=== PATIENT | male | born 1980 | race Caucasian/White ===

== ENCOUNTER 2018-05-19 04:22 | Inpatient (IN) ==
[2018-05-19 05:07] LABS: ALLEN TEST YES; BE -1.2 mmoll (-3.0-3.0); BLOOD TYPE ARTERIAL; METHB 1.3 % (0.0-1.5); O2(CT) 19.9 mL/dL (15.0-23.0); O2HB 96.8 % (95.0-99.0); PO2(98.6) 389 mmHg (60-100); SAMPLE BLOOD; SAO2 100.6 % (95.0-100.0); SRATE 16 BPM; THB 13.9 g/dL (11.5-17.4); TVOL 500 mL
[2018-05-19 05:08] LABS: MODALITY VENTILATOR
[2018-05-19 05:09] LABS: pH(98.6) 7.02 (7.35-7.45)
[2018-05-19 05:10] LABS: PCO2(98.6) 131 mmHg (35-45)
--- NOTE | 2018-05-19 05:43 | Diag Imaging Result Doc PS360 ---
EXAM: CHEST-PORTABLE HISTORY: unresponsive TECHNIQUE: Chest single view COMPARISON: 03/20/2018 FINDINGS: The lungs are hyperexpanded. Endotracheal tube in good position. Nasogastric tube overlies the esophagus and stomach. There are increased interstitial markings throughout the lungs. These are most pronounced in the apices. No cardiomegaly. No pleural effusions identified. IMPRESSION: Likely pneumonia and fibrosis. Electronically signed by Man Benavides 05/19/2018 5:40 AM
[2018-05-19 06:06] LABS: BASO# 0.11 X1000 (0.0-0.2); BASO% 0.8 % (0.0-0.8); EOS# 0.15 X1000 (0.0-0.7); HEMOGLOBIN 14.5 g/dL (14.0-18.0); IMM GRAN# 0.94 X1000 (0.0-0.04); IMM GRAN% 6.5 % (0.0-0.5); LYMPH# 2.89 X1000 (1.2-3.4); LYMPH% 19.9 % (20.5-51.1); MCHC 30.9 g/dL (33-37); MCV 100.6 FL (81-99); MONO# 0.52 X1000 (0.11-0.59); MONO% 3.6 % (1.7-9.3); MPV 11.5 FL (7.4-10.4); NEUT# 9.93 X1000 (1.4-6.5); NEUT% 68.2 % (42.2-75.2); PLT 245 X1000 (130-400); RBC 4.67 XMIL (4.7-6.1); RDW 13.9 % (11.5-14.5); WBC 14.54 X1000 (4.8-10.8)
--- NOTE | 2018-05-19 06:30 | PROVIDER DOCUMENTATION ---
HPI-Critical Care - General Chief Complaint: Full Arrest Stated Complaint: UNRESPONSIVE Time Seen by Provider: 05/19/18 05:09 Source: family Allergies/Adverse Reactions: Allergies Allergy/AdvReac Type Severity Reaction Status Date / Time No Known Allergies Allergy Verified 08/16/14 15:27 Home Medications: Home Medication List Medication Instructions Recorded Confirmed Last Taken Type Pantoprazole [Protonix] 40 mg PO QAM 05/13/13 05/19/18 12/21/14 07:00 History Carbamazepine [Tegretol] 400 mg PO TID #1 02/06/14 05/19/18 12/21/14 14:00 Rx Prednisone 5 mg PO DIRECTED #36 tablet 02/06/14 05/19/18 12/21/14 07:00 Rx Albuterol Sulfate [Proair Hfa] 8.5 gm IH Q4H PRN 08/16/14 05/19/18 12/20/14 17:00 History Divalproex Sodium [Depakote ER] 1,000 mg PO TID 08/16/14 05/19/18 12/21/14 14:00 History Sucralfate [Carafate Liquid] 1 gm PO Q6HR #1200 ml 01/06/15 05/19/18 Unknown Rx Levothyroxine Sodium [Synthroid] 88 mcg PO DAILY 02/17/18 05/19/18 Unknown Histo ry - History of Present Illness-Critical Care Location of Pain/Injury: reports: none Quality of Pain: reports: none Timing: reports: still present EMS Initial Findings:: unresponsive Pre-hospital Treatment: Not Used oxygen, Not Used BVM, Not Used intubated, Not Used CPR, Not Used defibrillated, Not Used IV fluids, Not Used epinephrine, Not Used atropine, Not Used lidocaine bolus, Not Used lidocaine drip, Not Used vasopressin, Not Used amiodarone, Not Used other Associated Symptoms: denies: denies symptoms, anxiety, arm pain, back/neck pain, chest pain, constipation, cough, diaphoresis, diarrhea, dizziness, EENT symptoms, fatigue, fever/chills, genitourinary problems, headaches, heartburn, joint pain, loss of appetite, malaise, muscle aches, sinus congestion/drainage, nausea, rash, seizure, shortness of breath, sensory/motor loss, pain with inspiration, swelling/mass in abdomen, syncope, vomiting, weakness, trouble walking, other Loss of Consciousness: still comatose Improves Condition (Modifying Factors): improves with: nothing Similar Symptoms Previously?: Yes Recently Seen Here or By Another Healthcare Provider: No - Cardiopulmonary Resuscitation Witnessed arrest?: Yes Noted by:: family Bystander CPR?: No Reason for Code Blue?: full arrest Initial Findings: unresponsive Treatment initiated prior to doctor arrival?: Not Used oxygen, Not Used BVM, Not Used intubated, Not Used CPR/thumper, Not Used defibrillated, Not Used IV fluids, Not Used epinephrine #mg, Not Used atropine #mg, Not Used lidocaine bolus #mg, Not Used lidocaine drip #mg/min, Not Used vasopressin, Not Used amiodarone, Not Used dopamine, Not Used sodium bicarb # amps, Not Used other Review of Systems - Adult - REVIEW OF SYSTEMS - ADULT ROS:: unobtainable per condition Constitutional: reports: no symptoms reported Eyes: reports: no symptoms reported Ears, Nose, Mouth & Throat: reports: no symptoms reported Cardiovascular: reports: no symptoms reported Respiratory: reports: no symptoms reported Gastrointestinal: reports: no symptoms reported Genitourinary: reports: no symptoms reported Musculoskeletal: reports: no symptoms reported Integumentary: reports: no symptoms reported Neurological: reports: no symptoms reported Psychiatric: reports: no symptoms reported Endocrine: reports: no symptoms reported Hematologic/Lymphatic: reports: no symptoms reported Allergic/Immunologic: reports: no symptoms reported Past History - Adult - PAST MEDICAL HISTORY-ADULT Review of Records: reports: Old Records Reviewed Major Childhood Illnesses: reports: denies history Cardiovascular: reports: denies history Respiratory: reports: pneumonia Gastrointestinal: reports: denies history Obstetrical/Gynecological: reports: denies history Genitourinary: reports: denies history Musculoskeletal: reports: denies history Neurological: reports: meningitis, 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), Seizures/Epilepsy Endocrine/Immune: reports: thyroid disorder Other Conditions: reports: denies history - PRIOR SURGERIES/PROCEDURES Surgical/Procedure History: reports: reviewed, not pertinent, other (lipoma removals) - IMMUNIZATION STATUS Childhood Immunizations: See Nurse Assessment Flu Vaccine: See Nurse Assessment - FAMILY HISTORY Family History: reviewed, not pertinent Physical Exam-General - PHYSICAL EXAM-ADULT Initial Vital Signs Reviewed: Yes - CONSTITUTIONAL General Appearance: other (unresponsive) - EYES Eyes: other (fixed and dilated) - HEAD, EARS, NOSE, MOUTH & THROAT HENMT: normocephalic/atraumatic - RESPIRATORY Respiratory: other (no spontaneous respiration) - CARDIOVASCULAR Cardiovascular: other (asystole) - GASTROINTESTINAL (ABDOMEN) Abdominal Exam: soft - LYMPHATIC Lymphatic: no adenopathy - MUSCULOSKELETAL Back Exam: normal inspection Extremity: other (no movement) - SKIN Integumentary: diaphoresis - NEUROLOGIC Neurologic: other (no response) Progress - PLAN OF CARE/RESULTS Progress/Plan/Lab Results: Vital Signs - 8 hr 05/19/18 04:46 05/19/18 04:48 05/19/18 04:50 Pulse Rate 106 H 113 H 115 H Blood Pressure 111/84 115/84 114/90 O2 Sat by Pulse Oximetry 98 100 100 05/19/18 04:52 05/19/18 04:54 05/19/18 04:56 Pulse Rate 113 H 113 H 113 H Blood Pressure 122/91 126/95 129/94 O2 Sat by Pulse Oximetry 100 100 100 05/19/18 04:58 05/19/18 05:00 05/19/18 05:02 Pulse Rate 115 H 114 H 114 H Blood Pressure 126/93 126/90 125/96 O2 Sat by Pulse Oximetry 100 100 100 05/19/18 05:06 05/19/18 05:08 05/19/18 05:10 Pulse Rate 116 H 116 H 117 H Blood Pressure 125/93 121/92 125/91 O2 Sat by Pulse Oximetry 100 99 99 05/19/18 05:12 05/19/18 05:14 05/19/18 05:16 Pulse Rate 117 H 117 H 119 H Blood Pressure 123/92 119/85 122/91 O2 Sat by Pulse Oximetry 99 99 99 05/19/18 05:18 05/19/18 05:20 05/19/18 05:22 Pulse Rate 120 H 120 H 120 H Blood Pressure 125/92 124/86 121/85 O2 Sat by Pulse Oximetry 99 99 99 05/19/18 05:24 05/19/18 05:26 05/19/18 05:28 Pulse Rate 121 H 121 H 121 H Blood Pressure 110/83 116/85 104/76 O2 Sat by Pulse Oximetry 98 98 99 05/19/18 05:30 05/19/18 05:32 05/19/18 05:34 Pulse Rate 120 H 120 H 119 H Blood Pressure 93/65 91/61 83/56 O2 Sat by Pulse Oximetry 100 100 100 05/19/18 05:36 05/19/18 05:38 05/19/18 05:40 Pulse Rate 118 H 117 H 117 H Blood Pressure 80/56 85/55 O2 Sat by Pulse Oximetry 99 100 05/19/18 05:41 05/19/18 05:42 05/19/18 05:44 Pulse Rate 117 H 118 H 119 H Blood Pressure 94/65 90/59 97/62 O2 Sat by Pulse Oximetry 100 100 05/19/18 05:46 05/19/18 05:48 05/19/18 05:50 Pulse Rate 119 H 122 H 122 H Blood Pressure 89/65 86/55 99/67 O2 Sat by Pulse Oximetry 100 100 100 05/19/18 05:51 05/19/18 05:52 05/19/18 05:54 Pulse Rate 121 H 121 H 120 H Blood Pressure 106/74 98/65 O2 Sat by Pulse Oximetry 99 98 98 05/19/18 05:56 05/19/18 05:58 05/19/18 06:00 Pulse Rate 119 H 119 H 119 H Blood Pressure 93/67 90/63 94/56 O2 Sat by Pulse Oximetry 100 100 100 05/19/18 06:02 05/19/18 06:04 05/19/18 06:06 Pulse Rate 119 H 120 H 120 H Blood Pressure 88/64 93/63 94/66 O2 Sat by Pulse Oximetry 100 100 100 05/19/18 06:08 Pulse Rate 120 H Blood Pressure 89/65 O2 Sat by Pulse Oximetry 100 Laboratory Results - last 24 hr 05/19/18 05/19/18 04:52 05:04 WBC 14.54 H RBC 4.67 L Hgb 14.5 Hct 47.0 MCV 100.6 H MCH 31.0 MCHC 30.9 L RDW Std Deviation 13.9 Plt Count 245 MPV 11.5 H Immature Gran % (Auto) 6.5 H Neut % (Auto) 68.2 Lymph % (Auto) 19.9 L [place] % (Auto) 3.6 Eos % (Auto) 1.0 Baso % (Auto) 0.8 Immature Gran # (Auto) 0.94 H Neut # (Auto) 9.93 H Lymph # (Auto) 2.89 [place] # (Auto) 0.52 Eos # (Auto) 0.15 Baso # (Auto) 0.11 Specimen Type ARTERIAL Sample Site R BRACHIAL pH 7.02 L* pCO2 131 H* pO2 389 H HCO3 24.0 Base Excess -1.2 Oxyhemoglobin 96.8 ABG O2 Sat (Calculated) 19.9 ABG O2 Saturation 100.6 H ABG Carboxyhemoglobin 2.50 ABG Methemoglobin 1.3 Michael Test YES A-a O2 Difference 160.0 Total Hemoglobin 13.9 Lactate 9.50 H* Blood Gas Modality VENTILATOR Vent Mode A/C Spontaneous Rate 16 FiO2 % 100.0 Tidal Volume 500 PEEP 5.0 Orders Category Date Time Status Central Line Placement per MD/ NOW Care 05/19/18 06:19 Active CHEST-PORTABLE [RAD] Stat Exams 05/19/18 05:04 Completed CHEST/ABD TUBE PLACEMENT [RAD] Stat Exams 05/19/18 06:20 Ordered ABG [RESP] Routine Lab 05/19/18 05:04 Completed CBC WITH ELECTRONIC DIFF [HEME] Stat Lab 05/19/18 04:52 Completed CK PROFILE [SP CHEM] Stat Lab 05/19/18 04:52 Received COMPREHENSIVE METABOLIC PANEL [CHEM] Stat Lab 05/19/18 04:52 Received TROPONIN T Stat Lab 05/19/18 04:52 Received Dextrose 5%-0.45% NaCl Inj [D5 1/2 Ns] 250 ml Med 05/19/18 05:00 Active Norepinephrine [Levophed] 8 mg IV As Directed mls/hr Transfer/Admit Order [TRANSFER] Routine Transfer 05/19/18 05:45 Ordered Result Diagrams: 05/19/18 04:52 Procedures - INTUBATION Airway Evaluation: Large/Loose Teeth Mallampati Class: 2 Tube Size (cm): 7.5 Pretreated with 100% Oxygen?: Yes Breath Sounds after Intubation: equal ETT Primary Tube Confirmation: Capnometry CO2 Change, Direct Visualization, Chest Rise and Fall, Tube placement verified on XRAY Intubation Complications: no complications Vent Settings: See Respiratory Therapy Notes - ADDITIONAL PROCEDURES Additional Procedure: Cannulate Artery/Vein (central line placement in right internal jugular vein without difficulty. Xray ordered for placement) Departure - Departure Date of Disposition Decision: 05/19/18 Time of Disposition Decision: 06:35 DIAGNOSIS: Cardiorespiratory arrest Disposition: ADMITTED INPATIENT 09 Certified Medical Emergency: Emergent Condition: Critical - Critical Care Note This patient required my direct & personal management of CC.: Yes Total Time (mins): 65 Critical Care Statement: This patient required my direct personal management to treat or rule out processes, the absence of which, could potentiallly result in sudden, clinically significant life or limb threatening deterioration. Attestation - Physician/ APPLE Attestation Patient care was provided by Advanced Practice Provider:: No The physician spent face to face time with patient:: Yes Advanced Practice Provider documentation review:: Supervising physician onsite and consulted in the evaluation and care of this patient. The physician did have a face to face encounter with the patient.
[2018-05-19 06:43] LABS: ESTIMATED GFR > 60
[2018-05-19 06:45] LABS: AGAP 17; ALB/GLOB RATIO 0.8; ALBUMIN 3.4 g/dL (3.5-5.0); ALKALINE PHOSPHATASE 166 U/L (32-122); BUN 24 mg/dL (8-22); CALCIUM 9.1 mg/dL (8.8-10.2); CHLORIDE 86 mmol/L (98-107); CK PROFILE 86 U/L (24-204); COSMO 285; CREATININE 0.8 mg/dL (0.7-1.2); GLUCOSE 197 mg/dL (70-104); GOT 35 U/L (10-34); GPT 14 U/L (10-44); SODIUM 138 mmol/L (136-145); TCO2 35 mmol/L (25-35); TOTAL BILIRUBIN 0.18 mg/dL (0.20-1.00); TOTAL PROTEIN 7.5 g/dL (6.3-8.3)
[2018-05-19] MEDS ORDERED: NS 500 ML ONE (06:56)
[2018-05-19] MEDS ORDERED: ZOFRAN IV PRN (07:01)
--- NOTE | 2018-05-19 07:16 | Diag Imaging Result Doc PS360 ---
EXAM: CHEST/ABD TUBE PLACEMENT HISTORY: cvl placement TECHNIQUE: Portable chest single view COMPARISON: 5:30 AM FINDINGS: A right jugular line has been placed since the prior exam. The tip overlies the T4-5 vertebra. No pneumothorax. No other interval change. Electronically signed by Man Benavides 05/19/2018 7:14 AM
[2018-05-19] MEDS ORDERED: VANCOMYCIN 1 GM/NS 1 GM/250 ML IVPB IV ONE (07:25)
[2018-05-19] MEDS ORDERED: VANCOMYCIN IV PER PHARMACY MISC SCH (07:30)
[2018-05-19] MEDS ORDERED: NS 1,000 ML ONE ×2 (08:01→23:10)
[2018-05-19] MEDS ORDERED: NS 500 ML IV PRN (08:23)
[2018-05-19] MEDS ORDERED: FENTANYL IV ONE (08:30)
[2018-05-19] MEDS ORDERED: TYLENOL PR PRN (08:33)
[2018-05-19 08:44] LABS: AGAP 8; AMYLASE 87 U/L (20-200); BUN 26 mg/dL (8-22); CALCIUM 8.3 mg/dL (8.8-10.2); CHLORIDE 93 mmol/L (98-107); CK PROFILE 165 U/L (24-204); COSMO 281; CREATININE 0.6 mg/dL (0.7-1.2); ESTIMATED GFR > 60; GLUCOSE 111 mg/dL (70-104); LIPASE 26 U/L (13-60); PHOSPHORUS 5.9 mg/dL (2.7-4.5); POTASSIUM 4.6 mmol/L (3.5-5.1); SODIUM 138 mmol/L (136-145); TCO2 37 mmol/L (25-35)
[2018-05-19] MEDS ORDERED: POTASSIUM CHLORIDE 40 MEQ in NS 250 ML IV PRN (08:45)
[2018-05-19] MEDS ORDERED: POTASSIUM CHLORIDE 60 MEQ in NS 500 ML IV PRN (08:45)
[2018-05-19] MEDS ORDERED: SODIUM PHOSPHATE 20 MMOL in NS 250 ML IV PRN (08:45)
[2018-05-19] MEDS ORDERED: SODIUM PHOSPHATE 10 MMOL in NS 250 ML IV PRN (08:45)
[2018-05-19] MEDS ORDERED: MAGNESIUM SULFATE 2 GM in STERILE WATER INJ. 50 ML IV PRN (08:45)
[2018-05-19] MEDS: ATIVAN IV SCH ×4 (09:00→20:06)
[2018-05-19] MEDS ORDERED: NITROGLYCERIN 50 MG/D5W 50 MG/250 ML IV.SOLN IV SCH (09:00)
[2018-05-19] MEDS: NS 1,000 ML IV SCH ×3 (09:02→23:45)
[2018-05-19] MEDS: ZOSYN 3.375 GM in NS 50 ML IV SCH ×3 (09:02→18:09)
[2018-05-19] MEDS: FENTANYL 1,000 MICROGM in NS 80 ML IV SCH (09:07)
[2018-05-19] MEDS: NIMBEX 80 MG in NS 160 ML IV SCH ×3 (09:08→21:14)
[2018-05-19] MEDS: LEVOPHED 8 MG in D5 1/2 NS 250 ML IV SCH (09:17)
[2018-05-19] MEDS: DUONEB (A & A) INH SCH ×5 (09:20→23:17)
[2018-05-19 09:33] LABS: INR 1.1; PROTIME 15.1 Seconds (11.0-16.0)
--- NOTE | 2018-05-19 09:34 | HISTORY AND PHYSICAL ---
CHIEF COMPLAINT: Cardiac arrest. HISTORY OF PRESENT ILLNESS: This is one of numerous [facility] admissions for this 38-year- old white male who apparently had a cardiac arrest in [place] and was brought by family per car to [facility]. CPR was done to include administration of 3 amps of epinephrine and 2 amps of atropine. He was intubated and placed on a ventilator. He responded with heart rate and blood pressure, but pupils remained fixed and dilated as they were on presentation. He was admitted to intensive care unit for cooling protocol and supportive care. A discussion was held with his who understands the seriousness of his condition. His last admission was 02/17/2018 through 03/20/2018. 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 He was evaluated and followed by Dr. Guo and Dr. Rader during that admission. His prognosis is poor. PAST MEDICAL HISTORY: Admitted 02/17/2018 through 03/20/2018, as above. He has no known cardiac problems. Apparently he cannot talk when in his usual state, but can sign. LABORATORY DATA: Hemoglobin 14.5, hematocrit 47, white blood count 14,500, sodium 138, potassium 4.6, BUN 26, creatinine 0.6, glucose 111, calcium 8.3, phosphorus 5.9, bilirubin 0.18, AST 35, ALT 14, alkaline phosphatase 166, CPK 165, troponin T 0.011, albumin 3.4, amylase 87, and lipase 26. CURRENT MEDICATIONS: Albuterol via inhaler q.4 hours, Tegretol 400 mg t.i.d., Depakote ER 1000 mg t.i.d., levothyroxine 88 mcg daily, Protonix 40 mg daily, prednisone 5 mg daily, and sucralfate 1 g q.6 hours. ALLERGIES: None known. REVIEW OF SYSTEMS: Significant for seizure disorder, chronic encephalopathy, COPD, pulmonary fibrosis, and inability to talk. FAMILY HISTORY: Can be obtained from most recent charts. SOCIAL HISTORY: Can be obtained from most recent charts. PHYSICAL EXAMINATION: VITAL SIGNS: Temperature 97 degrees, heart rate 117, respirations 22, blood pressure 108/80, O2 saturation on ventilator is 97%. HEENT: Pupils are fixed and dilated. RESPIRATORY: He is currently on the ventilator. Breath sounds are clear bilaterally. HEART: Regular in rate and rhythm with tachycardia. ABDOMEN: Soft with no masses. EXTREMITIES: No cyanosis, clubbing, or edema. RECTAL/GENITALIA: Deferred. IMPRESSION: 1. Cardiorespiratory arrest. 2. Probable brain injury. 3. Seizure disorder. 4. Chronic obstructive pulmonary disease . 5. Pulmonary fibrosis. 6. Hypothyroidism. 7. Poor prognosis. PLAN: Supportive care. Cardiology and pulmonary consultations. cc: Hugo Rodriguez MD
[2018-05-19 09:38] LABS: BASO# 0.01 X1000 (0.0-0.2); BASO% 0.1 % (0.0-0.8); EOS# 0.02 X1000 (0.0-0.7); EOS% 0.1 % (0.0-10.0); HEMATOCRIT 46.1 % (42.0-52.0); HEMOGLOBIN 14.5 g/dL (14.0-18.0); IMM GRAN# 0.11 X1000 (0.0-0.04); IMM GRAN% 0.7 % (0.0-0.5); LYMPH# 0.72 X1000 (1.2-3.4); LYMPH% 4.4 % (20.5-51.1); MCHC 31.5 g/dL (33-37); MCV 98.5 FL (81-99); MONO# 1.47 X1000 (0.11-0.59); MPV 10.9 FL (7.4-10.4); NEUT# 14.01 X1000 (1.4-6.5); NEUT% 85.7 % (42.2-75.2); PLT 243 X1000 (130-400); RBC 4.68 XMIL (4.7-6.1); RDW 13.9 % (11.5-14.5); WBC 16.34 X1000 (4.8-10.8)
[2018-05-19] MEDS: LACRI-LUBE OPH OINT BOTH EYES SCH ×3 (09:45→20:07)
[2018-05-19] MEDS: LOVENOX SUBQ SCH ×2 (10:00→20:07)
[2018-05-19] MEDS: PEPCID IV SCH ×2 (10:11→20:07)
[2018-05-19] MEDS: SODIUM CHLORIDE 0.9% INJ SCH ×2 (10:12→20:07)
[2018-05-19] MEDS: SOLU-MEDROL IV SCH ×2 (10:14→17:43)
[2018-05-19 11:47] LABS: ALLEN TEST YES; BE 9.3 mmoll (-3.0-3.0); BLOOD TYPE ARTERIAL; HCO3-(ACT) 32.2 mmoll (20.0-26.0); METHB 1.2 % (0.0-1.5); O2(CT) 20.5 mL/dL (15.0-23.0); O2HB 96.5 % (95.0-99.0); PO2(98.6) 254 mmHg (60-100); SAMPLE BLOOD; SAO2 100.2 % (95.0-100.0); SRATE 20 BPM; THB 14.7 g/dL (11.5-17.4); TVOL 500 mL; pH(98.6) 7.28 (7.35-7.45)
[2018-05-19 11:48] LABS: MODALITY VENTILATOR; PCO2(98.6) 85 mmHg (35-45)
--- NOTE | 2018-05-19 11:48 | CONSULTATION ---
DATE OF CONSULTATION: 05/19/2018 IMPRESSION: 1. Respiratory arrest progressing to cardiac arrest. 2. Chronic obstructive pulmonary disease and pulmonary fibrosis. 3. Seizure disorder. 4. Longstanding encephalopathy dating back to meningitis as an . RECOMMENDATIONS: 1. Continue supportive care. 2. Echocardiography. HISTORY: This 38-year-old, white male with past history of severe chronic lung disease, encephalopathy dating back to meningitis as an infant was admitted following cardiopulmonary arrest. He has been hospitalized multiple times for respiratory problems and has required ventilator support in the past. He has been on chronic home oxygen as well as BiPAP. Family indicates that he started having problems with hypoxemia. They were bringing him to [facility] via automobile and shortly before arrival he stopped breathing. In the emergency room he was given CPR and administered epinephrine, atropine. He was intubated and started on ventilator. His pulse was restored. He was subsequently admitted to intensive care unit. He is sedated and on a cooling protocol post arrest. There is no prior history of cardiac problems. PAST MEDICAL HISTORY: 1. Severe chronic pulmonary disease with COPD and pulmonary fibrosis. 2. Chronic encephalopathy dating back to meningitis as an . 3. Seizure disorder. 4. Hypothyroidism. 5. Gastroesophageal reflux disease. ALLERGIES: No known drug allergies. MEDICATIONS PRIOR TO ADMISSION: As listed. SOCIAL HISTORY: He lives at home with a very attentive mother. He has never smoked. FAMILY HISTORY: Noncontributory. REVIEW OF SYSTEMS: Not obtainable given patient sedated on ventilator. PHYSICAL EXAMINATION: General: Reveals a chronically ill-appearing adult male, on ventilator and sedated. Vital signs: Blood pressure 120/80, heart rate 82 with ECG monitor showing sinus rhythm. HEENT: Mucous membranes are moist. Neck: Supple. There are no carotid bruits. Chest: Reveals bilateral rhonchi. Cardiac: Reveals a regular rate and rhythm without appreciable murmur or gallop. Abdomen: Soft with good bowel sounds. Extremities: Without edema. There is diffuse muscle wasting. LABORATORY DATA: White blood cell count 16.34, hematocrit 46.1, hemoglobin 14.5 platelet count 243,000. Arterial blood gas: PH 7.02, pCO2 131, PO2 389. Sodium 138, potassium 4.6, chloride 93, carbon dioxide 37, BUN 26, creatinine 0.6, glucose 111. Troponin T 0.319. Initial troponin T 0.011. CPK 165. Initial CPK 86. Twelve lead EKG not yet scanned in medical record. cc: MD Sid Orellana Jr, MD
[2018-05-19 12:10] LABS: BANDS 4 % (0-1); LYMPHS 4 % (21-51); MONO 2 % (1-9); SEGS 88 % (42-75)
[2018-05-19] MEDS ORDERED: VANCOMYCIN 2,200 MG in NS 500 ML IV ONE (14:00)
[2018-05-19 15:16] LABS: AGAP 9; BUN 23 mg/dL (8-22); CALCIUM 8.1 mg/dL (8.8-10.2); CHLORIDE 92 mmol/L (98-107); COSMO 280; CREATININE 0.5 mg/dL (0.7-1.2); ESTIMATED GFR > 60; GLUCOSE 116 mg/dL (70-104); POTASSIUM 3.5 mmol/L (3.5-5.1); SODIUM 138 mmol/L (136-145); TCO2 37 mmol/L (25-35)
[2018-05-19 17:13] LABS: CK INDEX 10.8 (0.0-2.5); CK-MB 26.99 ng/mL (0.0-5.0)
[2018-05-19 17:29] LABS: ALLEN TEST NO; BE 8.5 mmoll (-3.0-3.0); BLOOD TYPE ARTERIAL; HCO3-(ACT) 31.5 mmoll (20.0-26.0); METHB 1.1 % (0.0-1.5); O2(CT) 18.8 mL/dL (15.0-23.0); O2HB 94.2 % (95.0-99.0); PO2(98.6) 74 mmHg (60-100); SAMPLE BLOOD; SAO2 97.4 % (95.0-100.0); THB 14.2 g/dL (11.5-17.4); pH(98.6) 7.33 (7.35-7.45)
[2018-05-19] MEDS ORDERED: POTASSIUM CHLORIDE 40 MEQ/SWI 40 MEQ/100 ML IVPB IV ONE (17:30)
[2018-05-19 17:32] LABS: MODALITY VENTILATOR
[2018-05-19 17:33] LABS: PCO2(98.6) 71 mmHg (35-45)
--- NOTE | 2018-05-19 20:40 | CONSULTATION ---
DATE OF CONSULTATION: 05/19/2018 REQUESTING PROVIDER: Dr. Sarabjit Jiang. REASON FOR CONSULTATION: Respiratory failure. HISTORY OF PRESENT ILLNESS: This is a 38-year-old male with a complicated medical history including chronic encephalopathy, drug induced pneumonitis, recurrent respiratory arrest requiring ventilation, questionable COPD and pulmonary fibrosis, recurrent pneumonia and UTI, chronic seizure disorder, hypothyroidism and anemia. He was brought to the ER early this morning by family with respiratory failure and unresponsiveness. In the ER he was found in a full cardiopulmonary arrest. Per the H&P, PCR was done with administration of 3 amps of epinephrine and 2 amps of atropine. The patient was intubated and mechanically ventilated. His pulse was restored. ABG revealed pH 7.02, pCO2 131, PO2 389 and lactate 9.50. Chest x-ray revealed likely pneumonia and fibrosis. He has been admitted to the ICU for further evaluation and management. At the time of my examination patient is lying in the ICU bed on a cooling blanket. He is intubated and sedated with fentanyl. He is also on norepinephrine drip. the patient's family is at the bedside. The patient's mother reports that patient has been on BiPAP at home but she does not think that BiPAP works as good as she expected. She reports patient has low oxygen saturation at 80s for a few days and this morning the oxygen saturation dropped to 60s. She states her has been admitted in [facility] recently and she has to take care of him which has somewhat made patient stressed as she is the patient's major caregiver . She reports patient has very poor cough effort recently. She reports patient has no fever. PAST MEDICAL AND SURGICAL HISTORY: 1. 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 2. Drug induced pneumonitis in mid 2013. 3. Recurrent respiratory arrest requiring ventilation, on BiPAP at home since December 2014. 5. Questionable COPD and pulmonary fibrosis . 6. Recurrent pneumonia and UTI. 7. Chronic seizure disorder followed by Dr. Rader. 8. Hypothyroidism . 9. Anemia. 10. Fatty cyst removal for 5 times from right arm and back. SOCIAL HISTORY: The patient lives at home with his family. He can communicate with his mother mainly by sign language. His mother is his major caregiver. He is poorly developed and stays in bed most of time. He has no history of tobacco, alcohol or illicit drug use. FAMILY HISTORY: Reviewed and noncontributory. ALLERGIES: No known drug allergies. REVIEW OF SYSTEMS: Unable to be obtained. PHYSICAL EXAMINATION: Vital Signs: Temperature 97.8 degrees, blood pressure 108/80, pulse 115, respiratory rate 26, oxygen saturation 97% on AC mechanical ventilator with spontaneous rate 16, oxygen FiO2 100%, tidal volume 500 and PEEP 5. General: Chronic ill appealing poor developed intubated and sedated with fentanyl drip. HEENT: Atraumatic. Trachea midline. Mucosa pink and dry. Respiratory: Mechanically ventilated. Auscultation reveals diminished breathing sounds bibasilarly, very, very coarse breathing sounds throughout the lung carmen and rhonchi bilaterally. Cardiovascular: Regular rate and rhythm. Gastrointestinal: Bowel sounds present in all 4 quadrants. Soft and flat. Extremities: Bilateral lower extremity pitting edema 2+, bilateral lower extremity and bilateral upper extremity pale and cold to touch. Muscle wasting noted. Neurologic: Sedated and unresponsive. LAB DATA: White blood cells 16.34, hemoglobin 14.5, hematocrit 46.1, platelet 243,000, sodium 138, potassium 4.6, chloride 93, carbon dioxide 37, BUN 26, creatinine 0.6, glucose 111, calcium 8.3, phosphorus 5.9, troponin 0.319. ABG, pH 7.28, pCO2 85, PO2 254, HC03 32.2, base excess 9.3 and oxyhemoglobin 96.5. ASSESSMENT AND PLAN: This is a 38-year-old male with a complicated medical history including chronic encephalopathy, drug induced pneumonitis, recurrent respiratory arrest requiring ventilation, questionable chronic obstructive pulmonary disease and pulmonary fibrosis, recurrent pneumonia and urinary tract infection, chronic seizure disorder, hypothyroidism and anemia. He has been admitted to the intensive care unit with a cardiopulmonary arrest, probable brain injury, seizure disorder, chronic obstructive pulmonary disease and pulmonary fibrosis. 1. Acute on chronic hypoxemic hypercapnic respiratory failure likely secondary to pneumonia, chronic obstructive pulmonary disease and pulmonary fibrosis. Continue AC mechanical ventilation. Continue antibiotic, bronchodilators, continue fluid resuscitation. Follow up with ABG, CBC, chest x-ray, blood cultures, sputum culture and urine culture. 2. Status post cardiopulmonary arrest with elevation troponin. Dr. Mcdonough is on board. 3. Seizure disorder. Dr. Rader is on board. 4. Continue GI and DVT prophylaxis. 5. Poor prognosis. Further recommendations pending hospital course. Thank you for the courtesy of this consult. Dictated by CARL Foley for Bryant Cruz MD cc: CARL Foley MD Roger H. Moss Jr, MD [facility] DIVISIONPaul
[2018-05-19 20:54] LABS: BASO# 0.01 X1000 (0.0-0.2); BASO% 0.1 % (0.0-0.8); HEMATOCRIT 41.3 % (42.0-52.0); HEMOGLOBIN 13.5 g/dL (14.0-18.0); IMM GRAN# 0.03 X1000 (0.0-0.04); IMM GRAN% 0.2 % (0.0-0.5); LYMPH# 0.27 X1000 (1.2-3.4); LYMPH% 1.7 % (20.5-51.1); MCH 31.3 PG (27-31); MCHC 32.7 g/dL (33-37); MCV 95.6 FL (81-99); MONO% 6.4 % (1.7-9.3); MPV 10.7 FL (7.4-10.4); NEUT# 14.34 X1000 (1.4-6.5); NEUT% 91.6 % (42.2-75.2); PLT 137 X1000 (130-400); RBC 4.32 XMIL (4.7-6.1); RDW 13.5 % (11.5-14.5); WBC 15.65 X1000 (4.8-10.8)
[2018-05-19 20:59] LABS: INR 1.09
[2018-05-19 21:11] LABS: AGAP 9; AMYLASE 54 U/L (20-200); BUN 21 mg/dL (8-22); CALCIUM 7.8 mg/dL (8.8-10.2); CHLORIDE 96 mmol/L (98-107); COSMO 283; CREATININE 0.5 mg/dL (0.7-1.2); ESTIMATED GFR > 60; GLUCOSE 135 mg/dL (70-104); LIPASE 11 U/L (13-60); MAGNESIUM 1.4 mg/dL (1.5-2.7); PHOSPHORUS 1.8 mg/dL (2.7-4.5); POTASSIUM 3.7 mmol/L (3.5-5.1); SODIUM 139 mmol/L (136-145); TCO2 34 mmol/L (25-35)
[2018-05-19 21:43] LABS: BANDS 2 % (0-1); HYPOCHROM 2+; LYMPHS 4 % (21-51); MONO 2 % (1-9); SEGS 92 % (42-75)
[2018-05-19 21:44] LABS: MICROCYTOSIS 1+
[2018-05-20] LABS: ALLEN TEST YES; BE 9.6 mmoll (-3.0-3.0); BLOOD TYPE ARTERIAL; HCO3-(ACT) 32.4 mmoll (20.0-26.0); METHB 1.5 % (0.0-1.5); O2(CT) 19.4 mL/dL (15.0-23.0); O2HB 96.7 % (95.0-99.0); PO2(98.6) 134 mmHg (60-100); SAMPLE BLOOD; SAO2 101.3 % (95.0-100.0); SRATE 20 BPM; THB 14.1 g/dL (11.5-17.4); TVOL 500 mL; pH(98.6) 7.36 (7.35-7.45)
[2018-05-20 00:01] LABS: PCO2(98.6) 67 mmHg (35-45)
[2018-05-20 00:02] LABS: MODALITY VENTILATOR
[2018-05-20] MEDS: ZOSYN 3.375 GM in NS 50 ML IV SCH ×5 (00:05→18:12)
[2018-05-20] MEDS: VANCOMYCIN 1,800 MG in NS 500 ML IV SCH ×2 (02:13→14:22)
[2018-05-20] MEDS: FENTANYL 1,000 MICROGM in NS 80 ML IV SCH ×2 (02:13→04:43)
[2018-05-20] MEDS: LACRI-LUBE OPH OINT BOTH EYES SCH ×3 (02:13→16:24)
[2018-05-20] MEDS: SOLU-MEDROL IV SCH ×3 (02:13→17:59)
--- NOTE | 2018-05-20 02:24 | ECHO REPORT ---
ORDER DATE: 05/19/2018 SUMMARY: 1. Technically difficult study due to limited acoustic window quality. 2. The aortic valve is trileaflet and opens normally on 2-dimensional images. Peak gradient across aortic valve is less than 5 mmHg. Mitral, tricuspid and pulmonic valves are without structural abnormality. There is trace tricuspid regurgitation and trace pulmonic insufficiency. The aortic root is normal in size. 3. Normal left ventricular dimension is demonstrated. The left ventricle appears hyperdynamic with an estimated left ejection fraction of at least 70%. There is suggestion of septal flattening to a mild degree during diastole and systole suggesting possible right ventricular pressure overload. No other wall motion abnormalities are evident. The left atrium is normal in size. The right atrium appears borderline enlarged. The right ventricle appears mildly enlarged. 4. No pericardial effusion. 5. Inferior vena cava not well demonstrated. cc: MD Hugo Orellana MD Roger H. Moss Jr, MD
[2018-05-20] MEDS: DUONEB (A & A) INH SCH ×6 (03:32→23:22)
--- NOTE | 2018-05-20 04:00 | HISTORY AND PHYSICAL ---
PRIMARY CARE PHYSICIAN: Dr. Guerrero. CHIEF COMPLAINT: Cardiac arrest and respiratory failure. HISTORY OF PRESENT ILLNESS: A 38-year-old male with a history of COPD, ,hypothyroidism, meningitis as an infant, with subsequent deafness, and seizure disorder, who was brought to the emergency department because patient went into cardiac arrest. He was transferred to the ED. ACLS protocol was followed and a pulse was regained. He was intubated and is currently on a ventilator. He will need admission to ICU for further management. PAST MEDICAL HISTORY: COPD, deafness, seizure disorder, meningeal encephalitis, hypothyroidism. PAST SURGICAL HISTORY: None. ALLERGIES: No known drug allergies. CURRENT MEDICATIONS: As listed in the medication reconciliation sheet, which needs to be updated. Currently, it seems that he is on 1. Tegretol 400 mg p.o. t.i.d. 2. Depakote 1000 mg p.o. t.i.d. 3. Levothyroxine 88 mcg p.o. daily. 4. Pantoprazole 40 mg p.o. daily. 5. Prednisone 5 mg p.o. daily. SOCIAL HISTORY: No history of smoking, alcohol or illicit drug use. FAMILY HISTORY: No history of coronary disease. REVIEW OF SYSTEM: Unable to obtain because patient is obtunded. PHYSICAL EXAMINATION: GENERAL: Currently patient is obtunded and on a ventilator. VITAL SIGNS: Were not reported yet. CHEST: There is rhonchi. CARDIOVASCULAR: Regular rate and rhythm. ABDOMEN: Soft. Positive bowel sounds. EXTREMITIES: No edema. NEUROLOGIC: He is obtunded. GENITOURINARY: No bladder distention. SKIN: Warm. LABORATORIES AND STUDIES: Still pending. What we have is a blood gases with pH of 7.02, pCO2 of 131, pO2 of 389. ASSESSMENT: A 38-year-old male with a history of meningeal encephalitis as the with some quality of deafness and seizure disorder, chronic obstructive pulmonary disease, and hypothyroidism, who had presented to the emergency department full cardiac arrest with no pulse. ACLS protocol was followed and a pulse was obtained. He is currently on a ventilator, requires ICU admission for further management. 1. Acute respiratory failure. 2. Cardiac arrest. 3. Chronic obstructive pulmonary disease. 4. Seizure disorder. 5. Probable sepsis/pneumonia PLAN: 1. The patient will be admitted to ICU. 2. Continue with ventilator support. 3. We will monitor patient on telemetry. 4. Continue with DuoNebs p.r.n. 5. Put patient on seizure precautions. 6. Will check blood cultures, start IV ABX 7. The patient's condition is guarded. 8. We will continue to follow and reassess, and make further recommendations based on patient's clinical course. cc: MD Sid Gillis Jr, MD MTDD
[2018-05-20] MEDS: ATIVAN IV SCH ×5 (04:04→16:33)
[2018-05-20 05:10] LABS: ALLEN TEST YES; BE 7.5 mmoll (-3.0-3.0); BLOOD TYPE ARTERIAL; HCO3-(ACT) 30.7 mmoll (20.0-26.0); METHB 1.5 % (0.0-1.5); O2(CT) 17.9 mL/dL (15.0-23.0); PO2(98.6) 209 mmHg (60-100); SAMPLE BLOOD; SAO2 99.3 % (95.0-100.0); SRATE 20 BPM; THB 12.9 g/dL (11.5-17.4); TVOL 500 mL; pH(98.6) 7.32 (7.35-7.45)
[2018-05-20 05:11] LABS: MODALITY VENTILATOR; PCO2(98.6) 70 mmHg (35-45)
[2018-05-20] MEDS ORDERED: LOVENOX SUBQ SCH (06:00)
[2018-05-20 06:19] LABS: BASO# 0.01 X1000 (0.0-0.2); BASO% 0.1 % (0.0-0.8); EOS# 0.06 X1000 (0.0-0.7); EOS% 0.6 % (0.0-10.0); HEMOGLOBIN 12.5 g/dL (14.0-18.0); LYMPH# 0.48 X1000 (1.2-3.4); LYMPH% 4.7 % (20.5-51.1); MCH 31.3 PG (27-31); MCHC 32.9 g/dL (33-37); MONO# 0.52 X1000 (0.11-0.59); MONO% 5.1 % (1.7-9.3); MPV 10.8 FL (7.4-10.4); NEUT# 9.06 X1000 (1.4-6.5); NEUT% 89.5 % (42.2-75.2); PLT 112 X1000 (130-400); RDW 13.4 % (11.5-14.5); WBC 10.13 X1000 (4.8-10.8)
[2018-05-20 07:07] LABS: AGAP 12; BUN 21 mg/dL (8-22); CALCIUM 7.9 mg/dL (8.8-10.2); CHLORIDE 98 mmol/L (98-107); COSMO 286; CREATININE 0.4 mg/dL (0.7-1.2); ESTIMATED GFR > 60; GLUCOSE 136 mg/dL (70-104); POTASSIUM 3.4 mmol/L (3.5-5.1); SODIUM 141 mmol/L (136-145); TCO2 31 mmol/L (25-35)
[2018-05-20 07:33] LABS: BANDS 4 % (0-1); LYMPHS 6 % (21-51); SEGS 90 % (42-75)
--- NOTE | 2018-05-20 07:49 | Diag Imaging Result Doc PS360 ---
CHEST-1 VIEW - 05/20/2018 INDICATION: SOB COMPARISON: 05/19/2018 FINDINGS: Support lines and tubes are stable. Stable advanced COPD. Stable coarse interstitial infiltrates diffusely and bilaterally. Heart size remains top normal. There are probably trace pleural effusions. IMPRESSION: No change from prior. Electronically signed by Shashank Hall 05/20/2018 7:46 AM
[2018-05-20] MEDS: PEPCID IV SCH ×2 (08:03→20:30)
[2018-05-20] MEDS: SODIUM CHLORIDE 0.9% INJ SCH ×2 (08:03→20:30)
[2018-05-20] MEDS: LOVENOX SUBQ SCH ×2 (08:07→21:45)
--- NOTE | 2018-05-20 08:11 | EKG Report ---
Test Performed on : 05/19/2018 07:23:30 AM Test Reason : POST CODE Blood Pressure : / mmHG Vent. Rate : 104 BPM Atrial Rate : 104 BPM P-R Int : 118 ms QRS Dur : 102 ms QT Int : 364 ms P-R-T Axes : 084 090 077 degrees QTc Int : 478 ms Sinus tachycardia. Anterolateral infarct , age undetermined Abnormal ECG When compared with ECG of 16-AUG-2014 14:41, No significant change was found Unconfirmed Result
[2018-05-20 08:21] LABS: INR 1.31; PROTIME 17.4 Seconds (11.0-16.0)
[2018-05-20 08:24] LABS: BASO# 0.01 X1000 (0.0-0.2); BASO% 0.1 % (0.0-0.8); HEMATOCRIT 38.6 % (42.0-52.0); HEMOGLOBIN 12.5 g/dL (14.0-18.0); LYMPH# 0.32 X1000 (1.2-3.4); MCH 31.2 PG (27-31); MCHC 32.4 g/dL (33-37); MCV 96.3 FL (81-99); MONO# 0.52 X1000 (0.11-0.59); MONO% 4.8 % (1.7-9.3); MPV 11.3 FL (7.4-10.4); NEUT# 9.93 X1000 (1.4-6.5); NEUT% 92.1 % (42.2-75.2); PLT 127 X1000 (130-400); RBC 4.01 XMIL (4.7-6.1); RDW 13.9 % (11.5-14.5); WBC 10.78 X1000 (4.8-10.8)
[2018-05-20 08:30] LABS: AGAP 8; AMYLASE 35 U/L (20-200); BUN 20 mg/dL (8-22); CALCIUM 8.2 mg/dL (8.8-10.2); CHLORIDE 99 mmol/L (98-107); COSMO 287; CREATININE 0.4 mg/dL (0.7-1.2); ESTIMATED GFR > 60; GLUCOSE 119 mg/dL (70-104); MAGNESIUM 2.2 mg/dL (1.5-2.7); POTASSIUM 3.6 mmol/L (3.5-5.1); SODIUM 142 mmol/L (136-145); TCO2 35 mmol/L (25-35)
[2018-05-20 09:11] LABS: BANDS 28 % (0-1); LYMPHS 2 % (21-51); MONO 4 % (1-9); SEGS 66 % (42-75)
--- NOTE | 2018-05-20 09:43 | PROGRESS NOTE ---
DATE: 05/20/2018 SUBJECTIVE: The patient is on ventilator and is unconscious at this time. OBJECTIVE: Vital Signs: Blood pressure 130/90, respirations 20, pulse 85. He is on a cooling blanket. Temperature is 92.3 degrees Fahrenheit on the last check. HEENT: He is normocephalic. Lungs: Sound fairly clear to auscultation. Heart: Regular rate and rhythm without murmurs, gallops, or friction rubs. Echocardiogram was essentially normal. Abdomen: Soft. Active bowel sounds. No organomegaly or tenderness. Neurological: The patient is comatose on a ventilator. Blood gas shows a pH of 7.32, pCO2 of 70, PO2 of 209 with 40% FiO2. Potassium slightly low at 3.4. Initial troponin was elevated, so was CPK, CK index and MB. The patient was coded. ASSESSMENT: 1. Respiratory arrest. 2. Cardiac arrest. 3. Seizure disorder. 4. Chronic lung disease. 5. Encephalopathy. 6. Low potassium. PLAN: Continue to support. Appreciate the help from all consultants. cc: Sid Guerrero Jr, MD
[2018-05-20 11:04] LABS: ALLEN TEST YES; BE 8.6 mmoll (-3.0-3.0); BLOOD TYPE ARTERIAL; HCO3-(ACT) 31.6 mmoll (20.0-26.0); METHB 0.6 % (0.0-1.5); O2(CT) 16.9 mL/dL (15.0-23.0); O2HB 93.9 % (95.0-99.0); PO2(98.6) 69 mmHg (60-100); SAMPLE BLOOD; SAO2 96.8 % (95.0-100.0); SRATE 20 BPM; THB 12.8 g/dL (11.5-17.4); TVOL 500 mL
[2018-05-20 11:07] LABS: PCO2(98.6) 77 mmHg (35-45)
[2018-05-20 11:08] LABS: MODALITY VENTILATOR
[2018-05-20] MEDS: NS IV SCH ×3 (13:12→23:00)
[2018-05-20] MEDS: DEPACON IV SCH ×3 (13:12→23:00)
--- NOTE | 2018-05-20 13:20 | GENERAL SURGERY CONSULTATION ---
DATE: 05/20/2018 REQUESTING PHYSICIAN: Dr. Guerrero. REASON FOR CONSULTATION: Consult is concerning central line in the carotid artery. HISTORY OF PRESENT ILLNESS: A 38-year-old male with history of COPD, hypothyroidism, meningitis, seizure disorder, who is brought to the emergency department after having a cardiac arrest. He apparently had some regain of pulse and was started on the hypothermia protocol. He had a central line placed in the emergency department and it was noted this morning that it looked abnormal waveform and subsequently found that it was in the carotid artery. I was asked to weigh an opinion. PAST MEDICAL HISTORY: COPD, deafness, seizure disorder, meningitis, encephalitis, hypothyroidism. PAST SURGICAL HISTORY: None. ALLERGIES: None. CURRENT MEDICATIONS: MAR reviewed. SOCIAL HISTORY: No alcohol, tobacco, or illicit drugs. FAMILY HISTORY: No family history of coronary artery disease. REVIEW OF SYSTEMS: Unable to obtain secondary to patient's mental status. PHYSICAL EXAMINATION: Vital Signs: Patient is currently afebrile. His vital signs are stable. General: No acute distress, but paralyzed and sedated. male, looks stated age. HEENT: Normocephalic, atraumatic. Pupils equal, round, reactive to light. Mucous membranes moist, oropharynx benign. Neck: Supple. Central line in place connected to a CVP monitor and is pulsatile. Trachea midline. Cardiovascular: Regular rate and rhythm. Lungs: Grossly clear. Abdomen: Soft, nontender, nondistended. Extremities: No edema. Neurologic: Sedated and paralyzed. Skin: No signs of jaundice. Vascular: All extremities perfused. LABORATORY: Reviewed. IMAGING: Reviewed. Chest x-ray from this morning does show that looks like the central line crosses over to the left side from the right side. ASSESSMENT AND PLAN: A 38-year-old male with central line in what appears to be a carotid artery. Central line in carotid artery. At this time, we removed the central line, held pressure for 15 minutes. I observed at the bedside. I did not see any pulsatility or any kind of developing of hematoma. We will keep a close eye on it. We may need to consider ultrasound of the vasculature in the next day or two. cc: MD Sid Mustafa Jr, MD
[2018-05-20] MEDS ORDERED: NS 250 ML ONE (13:36)
[2018-05-20 14:00] LABS: CK INDEX 6.3 (0.0-2.5); CK-MB 22.19 ng/mL (0.0-5.0)
--- NOTE | 2018-05-20 14:04 | PROGRESS NOTE ---
DATE: 05/20/2018 SUBJECTIVE: The patient continues sedated and on cooling protocol. Remains on ventilator. OBJECTIVE: Vital Signs: Blood pressure 101/65, heart rate 73, oxygen saturation 100%. Neck: There is no significant jugular distention. Chest: Auscultation of the chest reveals scattered rhonchi. Cardiac: Reveals a regular rate and rhythm without appreciable murmur or gallop. Extremities: Without edema. LABORATORY DATA: Includes a white blood cell count of 10.13, hematocrit 30.8, hemoglobin 12.5, platelet count 112,000. Sodium 141, potassium 3.4, chloride 98, carbon dioxide 31, BUN 21, creatinine 0.4. Echocardiography demonstrates hyperdynamic left ventricle with ejection fraction at least 70%. Pulmonary artery pressure could not be estimated. There is some suggestion of possible pulmonary hypertension given abnormal septal wall motion. Right ventricle mildly enlarged. IMPRESSION: 1. Status post respiratory arrest progressing to cardiac arrest. 2. Severe chronic lung disease. 3. Seizure disorder. 4. Longstanding encephalopathy dating back to meningitis as an . RECOMMENDATIONS: 1. Continue supportive care. 2. Clinical presentation more consistent with primary respiratory deterioration leading to cardiac arrest. No further cardiovascular suggestions. We will see further on an as needed basis. cc: MD Sid Orellana Jr, MD
[2018-05-20] MEDS: NIMBEX 80 MG in NS 160 ML IV SCH (14:21)
--- NOTE | 2018-05-20 15:12 | CONSULTATION ---
DATE OF CONSULTATION: 05/20/2018 REASON FOR CONSULT: Seizure disorder. HISTORY OF PRESENT ILLNESS: This is a 38-year-old male who was admitted with a respiratory rest that progressed to cardiac arrest. This is a patient that is well known to Dr. Rader who follows him. 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 He has had chronic recurring pulmonary issues and has been admitted and on the ventilator on more than one occasion here. He was last here at the start of this year. This time he presented again with respiratory difficulties and then an apparent cardiac arrest. CPR was performed. He also received epinephrine and atropine. He was intubated and placed on the cooling protocol. The nurse states that he has just begun the rewarming process at about 11 a.m. today, shortly before my time at the bedside. The patient's antiepileptics are as follows. 1. Brand-name Depakote ER 500 mg, 2 p.o. q.a.m., 1-2 p.o. midday, 2 p.o. at bedtime. 2. Brand name Tegretol 200 mg, 2 p.o. t.i.d. Current medications as inpatient include lorazepam 2 mg IV q.4 hours scheduled. He has also been getting fentanyl and paralytic for the cooling protocol. Additionally, he was on pressor. There have been no reports of witnessed seizure activity. 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 FAMILY HISTORY: Noncontributory. SOCIAL HISTORY: No smoking, alcohol, or illicits. His mother is his primary pharmaceutical salesperson. I believe his father is being hospitalized currently in [place]. ALLERGIES: No known drug allergies listed. CURRENT MEDICATIONS: As per above. REVIEW OF SYSTEMS: Unable to obtain due to patient's mental status. PHYSICAL EXAMINATION: Vital Signs: Temperature 92.3 degrees, blood pressure recent 101/65, pulse 70s to 92, respirations 20. He is on the ventilator. General: Mr. Dean is supine in bed. A central line has just been pulled from suspected carotid artery location. Pressure is being held at the moment. His core body temperature is still quite low as the rewarming process has just begun. The fentanyl and paralytic have just been discontinued recently. His pupils are about 3 mm and slowly reactive both eyes. Gaze is conjugate and forward. I did not manipulate the head/neck further due to the recent arterial line that was removed and the pressure being held. There was no grimace. No blink to threat. No response of the extremities or facial grimace to noxious stimuli of the extremities. Reflexes are absent. No response with plantar stimulation. No clonus. DIAGNOSTICS: Echocardiogram with the estimated EF of 70%. Left atrium normal size. No mention of visualized thrombus. White count 10 today. Sodium normal. BUN and creatinine normal. Calcium 7.9, most recent 8.2. AST 35, ALT 14. Other labs reviewed in the chart. Valproic acid was 47.9 on admission, slightly low, and carbamazepine is 5.9, low therapeutic. ASSESSMENT: 1. Status post respiratory and cardiac arrest. Patient is on the cooling protocol and has just started the rewarming process. 2. Static encephalopathy with chronic seizure disorder. No report of witnessed seizure activity this admission. PLAN: I have started Depacon 750 mg IV q.6 hours for now. That will cover his home dose Depakote ER. I will go ahead and add Keppra 500 mg IV q.12 hours as well. He tolerated this in the past. Once he is able to use his NG tube or tolerate p.o., then his medications can be switched to his home medications as listed above in my note. Continue seizure precautions. Continue close neurologic checks as he is rewarmed. Overall prognosis is guarded as it seems he has suffered a significant event. Recommend a noncontrasted head CT, once able. Thank you for the consultation. Will follow. cc: MD Sid Larsen Jr, MD MTDD
[2018-05-20 17:22] LABS: ALLEN TEST YES; BE 9.7 mmoll (-3.0-3.0); BLOOD TYPE ARTERIAL; HCO3-(ACT) 32.3 mmoll (20.0-26.0); METHB 1.2 % (0.0-1.5); O2HB 90.9 % (95.0-99.0); PO2(98.6) 61 mmHg (60-100); SAMPLE BLOOD; SRATE 20 BPM; THB 12.5 g/dL (11.5-17.4); TVOL 500 mL; pH(98.6) 7.31 (7.35-7.45)
[2018-05-20 17:24] LABS: MODALITY VENTILATOR; PCO2(98.6) 77 mmHg (35-45)
[2018-05-20 17:44] LABS: AGAP 5; BUN 19 mg/dL (8-22); CALCIUM 8.1 mg/dL (8.8-10.2); CHLORIDE 99 mmol/L (98-107); COSMO 284; CREATININE 0.4 mg/dL (0.7-1.2); ESTIMATED GFR > 60; GLUCOSE 105 mg/dL (70-104); POTASSIUM 3.6 mmol/L (3.5-5.1); SODIUM 141 mmol/L (136-145); TCO2 37 mmol/L (25-35)
[2018-05-20] MEDS: DIPRIVAN 1% 1,000 MG/100 ML BOTTLE IV SCH ×2 (19:06→23:12)
[2018-05-20] MEDS: ATIVAN IV PRN ×3 (19:53→23:24)
[2018-05-20 21:47] LABS: CK INDEX 3.5 (0.0-2.5); CK-MB 13.12 ng/mL (0.0-5.0)
[2018-05-21] MEDS: ZOSYN 3.375 GM in NS 50 ML IV SCH ×4 (01:35→18:16)
[2018-05-21] MEDS: SOLU-MEDROL IV SCH ×3 (01:36→17:31)
[2018-05-21] MEDS: VANCOMYCIN 1,800 MG in NS 500 ML IV SCH ×2 (01:36→20:21)
[2018-05-21] MEDS: ATIVAN IV PRN ×3 (02:39→07:41)
[2018-05-21] MEDS: DUONEB (A & A) INH SCH ×6 (03:25→23:41)
[2018-05-21] MEDS: DIPRIVAN 1% 1,000 MG/100 ML BOTTLE IV SCH ×4 (03:57→18:21)
[2018-05-21 04:15] LABS: URINE SOURCE CATH
[2018-05-21 04:20] LABS: BILIRUBIN URINE NEGATIVE (NEGATIVE); BLOOD URINE NEGATIVE (NEGATIVE); COLOR YELLOW; GLUCOSE URINE NEGATIVE (NEGATIVE); KETONE URINE TRACE mg/dL (NEGATIVE); LEUKOCYTES URINE NEGATIVE (NEGATIVE); NITRITE URINE NEGATIVE (NEGATIVE); PH URINE 6.5; PROTEIN URINE TRACE mg/dL (NEGATIVE); SP GRAVITY URINE 1.012; TURBIDITY URINE CLEAR (CLEAR); UROBILINOGEN URINE NORMAL (NORMAL)
[2018-05-21 04:22] LABS: UR EPITHELIAL CELLS <10 /HPF (<10); URINE BACTERIA NEGATIVE /HPF; URINE RBC <10 /HPF (<10); URINE WBC <10 /HPF (<10)
[2018-05-21] MEDS: NS IV SCH ×4 (04:28→22:48)
[2018-05-21] MEDS: DEPACON IV SCH ×4 (04:28→22:48)
[2018-05-21 05:01] LABS: ALLEN TEST YES; BE 9.3 mmoll (-3.0-3.0); BLOOD TYPE ARTERIAL; HCO3-(ACT) 32.2 mmoll (20.0-26.0); METHB 1.6 % (0.0-1.5); O2(CT) 17.6 mL/dL (15.0-23.0); PO2(98.6) 155 mmHg (60-100); SAMPLE BLOOD; SAO2 99.3 % (95.0-100.0); SRATE 20 BPM; THB 12.8 g/dL (11.5-17.4); TVOL 500 mL; pH(98.6) 7.33 (7.35-7.45)
[2018-05-21 05:05] LABS: MODALITY VENTILATOR; PCO2(98.6) 72 mmHg (35-45)
[2018-05-21 06:18] LABS: HEMATOCRIT 37.6 % (42.0-52.0); HEMOGLOBIN 12.1 g/dL (14.0-18.0); MCH 31.2 PG (27-31); MCHC 32.2 g/dL (33-37); MCV 96.9 FL (81-99); MPV 12.4 FL (7.4-10.4); RBC 3.88 XMIL (4.7-6.1); RDW 14.6 % (11.5-14.5); WBC 15.3 X1000 (4.8-10.8)
[2018-05-21 06:20] LABS: MAGNESIUM 1.9 mg/dL (1.5-2.7); PHOSPHORUS 3.3 mg/dL (2.7-4.5)
[2018-05-21 06:47] LABS: CK INDEX 3.2 (0.0-2.5); CK-MB 8.45 ng/mL (0.0-5.0)
--- NOTE | 2018-05-21 07:27 | Diag Imaging Result Doc PS360 ---
EXAM: CHEST-1 VIEW INDICATION: SOB TECHNIQUE: One view COMPARISON: 05/20/2018 FINDINGS: The ET tube and NG tube are in stable positions. The IJ line has been removed. There has been placement of a right PICC line. The tip projects over the lower SVC in the expected position. Bilateral infiltrates with an apical predominance are again noted. There appears to have been some improvement at the right lung apex. No new consolidation is identified. Cardiac silhouette is stable. IMPRESSION: Interval placement of right PICC line and suggestion of slight improvement of consolidation at the right lung apex. Stable chest, otherwise. Electronically signed by Leon Vicente 05/21/2018 7:25 AM
--- NOTE | 2018-05-21 08:46 | GENERAL SURGERY PROGRESS NOTE ---
DATE: 05/21/2018 Reviewed patient's neck. I do not see any obvious swelling at this point. Pressure dressing is intact. We will continue to monitor. We will need to see if there is any long-term sequelae from the central line being in the carotid artery. We will plan on doing a carotid ultrasound likely in the next day or two. cc: MD Sid Mustafa Jr, MD
--- NOTE | 2018-05-21 09:49 | PROGRESS NOTE ---
DATE: 05/21/2018 SUBJECTIVE: The patient still unconscious on the ventilator. Paralytics have been removed. We are through with the cooling and he has warmed back up. He has had several seizures since that time. As of now, a controlled blood gas with a pH of 7.33, pCO2 72, PO2 155 with a 60% FIO2. White count 68995, could not get other lab work as the computer froze up, and I cannot see that at this point. One page was frozen, and that was where I got the lab work that I did have. OBJECTIVE: Vital Signs: Stable considering he is on a ventilator. He is not responsive at this time. Lungs: Clear to auscultation and percussion without rhonchi, rales, or wheezes. Heart: Regular rate and rhythm without murmurs, gallops, or friction rubs. Abdomen: Soft. Active bowel sounds. No organomegaly or tenderness. Neurological: The patient is comatose. ASSESSMENT: 1. Respiratory arrest. 2. Cardiovascular arrest. 3. Elevated cardiac enzymes. Echocardiogram was essentially normal. 4. Seizures. 5. Encephalopathy. PLAN: Continue to support. cc: Sid Guerrero Jr, MD
[2018-05-21] MEDS: SODIUM CHLORIDE 0.9% INJ SCH ×2 (10:23→20:25)
[2018-05-21] MEDS: PEPCID IV SCH ×2 (10:23→20:12)
[2018-05-21] MEDS: LOVENOX SUBQ SCH ×2 (10:24→20:13)
[2018-05-21] MEDS: KEPPRA 500 MG in NS 100 ML IV SCH ×2 (10:48→22:26)
--- NOTE | 2018-05-21 14:09 | PROGRESS NOTE ---
DATE: 05/21/2018 SUBJECTIVE: The patient has been rewarmed as of early this morning. There have been a few shaking incidences that have raised the question of seizure activity. He was placed on propofol and given p.r.n. lorazepam. OBJECTIVE: Vital Signs: Most recent temperature is 99.1 degrees, blood pressures today have been 90s to 130 systolic over 40s to 80s diastolic. Pulse 90s to low 100s General: Mr. Dean is supine in bed, intubated on the ventilator. Propofol was held for a few minutes prior to evaluation. He does not respond to loud voice or noxious stimuli. HEENT: His eyes are closed. No resistance to passive eye opening. Pupils are equal, 3 mm OU and reactive to bright light. Gaze is conjugate and forward. There may be subtle horizontal eye movement with passive head turning. Corneal reflexes are absent. No cough or gag. Extremities: He did not move his extremities to noxious stimuli. Plantar responses silent, no clonus. There are trace reflexes at the biceps bilaterally. LABS: Today showing white count of 15. The pH is 7.33, pCO2 of 72, PO2 of 155. FiO2 of 60%. BUN and creatinine were normal yesterday. ASSESSMENT AND PLAN: 1. Status post respiratory and cardiac arrest. Also, status post cooling protocol, rewarmed to normal body temperature early this morning. Continue supportive care per primary team. 2. Static encephalopathy and chronic seizure disorder. Reports of a few shaking events concerning for seizure activity since he has been rewarmed. None at my time at the bedside with propofol being held. I have added Keppra to his Depacon regimen. Okayed for p.r.n. lorazepam to look for subclinical seizures, and for prolonged or [id number] seizure activity. EEG has been ordered and I will review that once it is available. Uncertain if seizure activity is related to his known chronic seizure disorder and missed antiepileptic doses on admission versus superimposed cerebral insult or combination of the two. Continue seizure precautions and close neurologic checks. I have also ordered a noncontrasted head CT. Overall prognosis remains guarded. Brother at the bedside was updated and all questions were answered. cc: MD Sid Larsen Jr, MD MTDD
--- NOTE | 2018-05-21 14:38 | Diag Imaging Result Doc PS360 ---
CT HEAD W/O CONTRAST - 05/21/2018 INDICATION: s/p cardiac arrest and cooling;rewarmed; seizures COMPARISON: None FINDINGS: The ventricles and sulci are normal in size and contour. No intracranial mass or hemorrhage. The skull is intact. There is a nasogastric tube in place. There is sinusitis of the maxillary, ethmoid, and sphenoid sinuses. IMPRESSION: Sinusitis. No intracranial abnormality. This exam was performed using automated exposure control, adjustment of mA or kV according to patient size, and/or use of iterative reconstruction technique Electronically signed by Shashank Hall 05/21/2018 2:36 PM
[2018-05-22] MEDS: ZOSYN 3.375 GM in NS 50 ML IV SCH ×4 (00:31→19:09)
[2018-05-22] MEDS: SOLU-MEDROL IV SCH ×3 (01:34→16:23)
[2018-05-22] MEDS: DUONEB (A & A) INH SCH ×6 (03:42→22:48)
[2018-05-22] MEDS: DEPACON IV SCH ×4 (04:16→22:40)
[2018-05-22] MEDS: NS IV SCH ×4 (04:16→22:40)
[2018-05-22] MEDS: DIPRIVAN 1% 1,000 MG/100 ML BOTTLE IV SCH ×4 (05:34→22:40)
[2018-05-22 05:43] LABS: ALLEN TEST YES; BLOOD TYPE ARTERIAL; HCO3-(ACT) 34.3 mmoll (20.0-26.0); O2(CT) 12.6 mL/dL (15.0-23.0); PO2(98.6) 73 mmHg (60-100); SAMPLE BLOOD; SAO2 99.6 % (95.0-100.0); SRATE 20 BPM; THB 9.4 g/dL (11.5-17.4); TVOL 500 mL; pH(98.6) 7.36 (7.35-7.45)
[2018-05-22 05:46] LABS: MODALITY VENTILATOR
[2018-05-22 05:47] LABS: HEMATOCRIT 34.4 % (42.0-52.0); HEMOGLOBIN 11.1 g/dL (14.0-18.0); MCH 30.9 PG (27-31); MCHC 32.3 g/dL (33-37); MCV 95.8 FL (81-99); MPV 11.9 FL (7.4-10.4); RBC 3.59 XMIL (4.7-6.1); RDW 14.5 % (11.5-14.5); WBC 12.65 X1000 (4.8-10.8)
[2018-05-22 05:47] LABS: PCO2(98.6) 70 mmHg (35-45)
[2018-05-22 06:03] LABS: AGAP 7; ALB/GLOB RATIO 0.8; ALBUMIN 2.8 g/dL (3.5-5.0); ALKALINE PHOSPHATASE 67 U/L (32-122); BUN 20 mg/dL (8-22); CALCIUM 8.8 mg/dL (8.8-10.2); CHLORIDE 101 mmol/L (98-107); COSMO 290; CREATININE 0.5 mg/dL (0.7-1.2); ESTIMATED GFR > 60; GLUCOSE 110 mg/dL (70-104); GOT 35 U/L (10-34); GPT 16 U/L (10-44); POTASSIUM 4.3 mmol/L (3.5-5.1); SODIUM 144 mmol/L (136-145); TCO2 36 mmol/L (25-35); TOTAL BILIRUBIN 0.18 mg/dL (0.20-1.00); TOTAL PROTEIN 6.2 g/dL (6.3-8.3)
--- NOTE | 2018-05-22 06:15 | GENERAL SURGERY PROGRESS NOTE ---
DATE: 05/22/208 SUBJECTIVE: Reviewed the patient's note. Still no swelling noted. Pressure dressings intact. I have ordered a carotid ultrasound to evaluate. We will follow up with the results. Otherwise we will continue to monitor him. cc: MD Sid Mustafa Jr, MD
[2018-05-22] MEDS: PEPCID IV SCH ×2 (07:59→20:42)
[2018-05-22] MEDS: LOVENOX SUBQ SCH ×2 (08:00→20:42)
[2018-05-22] MEDS: SODIUM CHLORIDE 0.9% INJ SCH ×2 (08:01→20:43)
--- NOTE | 2018-05-22 08:04 | Diag Imaging Result Doc PS360 ---
EXAM: CHEST-PORTABLE INDICATION: resp failure TECHNIQUE: One view COMPARISON: 05/21/2018 FINDINGS: Support tubes and lines are in stable positions. Bilateral infiltrates with an apical predominance are essentially stable. There is a smaller focal infiltrate at the left lung base that is unchanged. No new consolidation is identified. Cardiac silhouette is stable. IMPRESSION: Stable chest. Electronically signed by Leon Vicente 05/22/2018 8:01 AM
--- NOTE | 2018-05-22 09:37 | PROGRESS NOTE ---
DATE: 05/22/2018 SUBJECTIVE: The patient is still comatose on the ventilator. OBJECTIVE: LABORATORY DATA: Blood gas shows pH 7.36, pCO2 of 70, PO2 of 73 on 40% FiO2. White count 06142, hemoglobin 11.1. Blood cultures negative after 48 hours. IMAGING: Chest x-ray shows bilateral infiltrates with a focal infiltrate in the left lung base that is unchanged. PHYSICAL EXAMINATION: Vital Signs: Blood pressure 122/75, pulse 103, temperature 98.8 degrees Fahrenheit. HEENT: Normocephalic. Lungs: Have scattered rales and rhonchi. Heart: Slightly tachycardic without murmurs, gallops, friction rubs. Abdomen: Soft. Active bowel sounds. No organomegaly or tenderness. Neurological: The patient is comatose and unresponsive. ASSESSMENT: 1. Respiratory arrest. 2. Cardiac arrest. 3. Sinusitis as seen on CT scan. CT scan was otherwise essentially normal. 4. Chronic obstructive pulmonary disease. 5. Encephalopathy. Echocardiogram was essentially normal though he had a rise in cardiac enzymes initially. 6. Seizure disorder. PLAN: Continue to support. Appreciate help from all the specialists. Condition critical. cc: Sid Guerrero Jr, MD
[2018-05-22] MEDS: KEPPRA 500 MG/NS 500 MG/100 ML IVPB IV SCH ×2 (11:17→22:01)
--- NOTE | 2018-05-22 13:43 | PROGRESS NOTE ---
DATE: 05/22/2018 SUBJECTIVE: No major overnight events. The patient had EEG yesterday. His propofol was turned off for that test, and there was no witnessed seizure activity. He became tachypneic and tachycardic however. There has been no reported seizure activity today. Head CT was performed yesterday. OBJECTIVE: T-max was 99.9 degrees, currently afebrile. Blood pressure 119-140 systolic, pulse 80s and respirations 20. He is on mechanical ventilation and breathing over the ventilator. Mr. Dean is supine in bed, intubated and sedated. Propofol was held for 4 to 5 minutes for the examination. His pupils were 3.5 mm both eyes and reactive to bright light. He did open his eyes after sedation had been held for some time, but did not regard or follow commands. Gaze was conjugate. Corneal reflexes were present bilaterally. There was some subtle horizontal eye movement with passive head turning. He had a cough and nurse reported possible gag earlier. He seemed to respond slightly to noxious stimuli of the extremities. Plantar response was silent. DIAGNOSTICS: Noncontrasted head CT was personally reviewed. No acute findings. There is mention of sinusitis. White count of 12.6, which is improved from yesterday. A pH of 7.36, pCO2 of 70, PO2 of 73, and FiO2 40%. Other labs reviewed in the chart. Routine EEG personally reviewed showing significant myogenic artifact, but no obvious evidence of epileptiform findings. ASSESSMENT AND PLAN: 1. Status post respiratory and cardiac arrest. He underwent the cooling procedure, and was rewarmed to normal body temperature in the morning of 05/21/2018. There has been some question of seizures early on in the rewarming period, but none recently. Head CT performed yesterday was unremarkable. Continue supportive care per primary team. We will continue to monitor his neurologic status clinically. 2. Static encephalopathy and intractable chronic seizure disorder. No seizure seen at my time at the bedside. Continue Keppra and Depacon regimen IV. EEG showed significant myogenic artifact likely from biting down on the tube, but there was no obvious epileptiform findings. Would consider repeating the EEG if clinical suspicion of seizures returns. As he has a chronic seizure disorder, it is not clear early on whether or not those witnessed events if seizures are related to his seizure disorder with missed antiepileptic medication doses on admission versus superimposed cerebral insult from the arrest itself. Would continue seizure precautions. Prognosis is guarded. cc: MD Sid Larsen Jr, MD
[2018-05-22] MEDS: VANCOMYCIN 1,800 MG in NS 500 ML IV SCH (14:02)
[2018-05-23] MEDS: SOLU-MEDROL IV SCH ×3 (01:47→17:30)
[2018-05-23] MEDS: ZOSYN 3.375 GM in NS 50 ML IV SCH ×4 (01:47→17:29)
[2018-05-23] MEDS: DUONEB (A & A) INH SCH ×6 (03:22→23:31)
[2018-05-23] MEDS: DIPRIVAN 1% 1,000 MG/100 ML BOTTLE IV SCH (03:35)
[2018-05-23 04:52] LABS: HEMOGLOBIN 10.9 g/dL (14.0-18.0); MCH 31.1 PG (27-31); MCHC 31.1 g/dL (33-37); MCV 99.7 FL (81-99); MPV 11.5 FL (7.4-10.4); RBC 3.51 XMIL (4.7-6.1); RDW 14.6 % (11.5-14.5); WBC 9.04 X1000 (4.8-10.8)
[2018-05-23 04:54] LABS: ALLEN TEST YES; BE 13.3 mmoll (-3.0-3.0); BLOOD TYPE ARTERIAL; HCO3-(ACT) 35.2 mmoll (20.0-26.0); METHB 1.7 % (0.0-1.5); O2(CT) 20.9 mL/dL (15.0-23.0); O2HB 93.6 % (95.0-99.0); PO2(98.6) 79 mmHg (60-100); SAMPLE BLOOD; SAO2 97.6 % (95.0-100.0); SRATE 20 BPM; THB 15.9 g/dL (11.5-17.4); TVOL 500 mL; pH(98.6) 7.37 (7.35-7.45)
[2018-05-23 04:56] LABS: MODALITY VENTILATOR
[2018-05-23 04:57] LABS: PCO2(98.6) 74 mmHg (35-45)
[2018-05-23] MEDS: DEPACON IV SCH ×4 (05:00→22:41)
[2018-05-23] MEDS: NS IV SCH ×4 (05:00→22:41)
[2018-05-23 05:29] LABS: AGAP 6; ALB/GLOB RATIO 0.8; ALBUMIN 2.8 g/dL (3.5-5.0); ALKALINE PHOSPHATASE 63 U/L (32-122); BUN 15 mg/dL (8-22); CALCIUM 8.7 mg/dL (8.8-10.2); CHLORIDE 99 mmol/L (98-107); COSMO 288; CREATININE 0.4 mg/dL (0.7-1.2); ESTIMATED GFR > 60; GLUCOSE 140 mg/dL (70-104); GOT 28 U/L (10-34); GPT 12 U/L (10-44); POTASSIUM 4.2 mmol/L (3.5-5.1); SODIUM 143 mmol/L (136-145); TCO2 38 mmol/L (25-35); TOTAL BILIRUBIN < 0.15 mg/dL (0.20-1.00); TOTAL PROTEIN 6.1 g/dL (6.3-8.3)
[2018-05-23 05:50] LABS: PHOSPHORUS 2.6 mg/dL (2.7-4.5)
[2018-05-23 06:15] LABS: PREALBUMIN 15.1 mg/dL (20-40)
--- NOTE | 2018-05-23 06:29 | GENERAL SURGERY PROGRESS NOTE ---
DATE: 05/23/2018 Discussed ultrasound images with the library technician. There appears to be what looks like a tract from where the previous central line was located, but no obvious pseudoaneurysm. No obvious signs of thrombosis. The official report is pending. At this time, we will continue to monitor peripherally. I do not see any obvious signs of hematoma in his neck. cc: MD Sid Mustafa Jr, MD
--- NOTE | 2018-05-23 07:38 | Diag Imaging Result Doc PS360 ---
EXAM: CHEST-PORTABLE 05/23/2018 HISTORY: resp failure TECHNIQUE: AP portable at 0526 COMMENT: There is an endotracheal tube with its tip at the thoracic inlet and an NG tube which passes below the diaphragm. There are coarse interstitial and alveolar opacities bilaterally as well as pleural thickening in the right apex and apparent retraction of the angy superiorly. The heart size is within normal limits. There is less apparent nodularity of the pulmonary opacities than on 02/17/2018 but otherwise the appearance is largely similar. IMPRESSION: Pleural and parenchymal fibrosis. The possibility of superimposed pneumonia cannot be excluded. Mycobacterial disease should be considered if not previously excluded. Electronically signed by Carlos De Santiago 05/23/2018 7:35 AM
[2018-05-23] MEDS: PEPCID IV SCH ×2 (08:29→20:38)
[2018-05-23] MEDS: LOVENOX SUBQ SCH ×2 (08:29→20:39)
[2018-05-23] MEDS: SODIUM CHLORIDE 0.9% INJ SCH ×2 (08:30→20:39)
[2018-05-23] MEDS: VANCOMYCIN 1,800 MG in NS 500 ML IV SCH (08:32)
--- NOTE | 2018-05-23 09:32 | EEG REPORT ---
DATE: 05/21/2018 BACKGROUND INFORMATION/TECHNIQUE: This is a digitally recorded routine portable EEG with video. HISTORY: A 38-year-old male with static encephalopathy and chronic seizure disorder, admitted with respiratory arrest followed by cardiac arrest. He is status post cooling protocol. There have been events raising the question of seizure. EEG is ordered to detect evidence of subclinical seizure activity. Medications include levetiracetam, Depacon, lorazepam and propofol which was held for this study. EEG FINDINGS: This is a severely technically limited EEG due to diffuse and persistent myogenic artifact necessitating heavy filtering. Posterior dominant alpha rhythm is not seen. The background consists of mixed frequency alpha, beta, theta, and delta ranges. No definite persistent focal slowing. No definite epileptiform discharges. No definite seizures. Hyperventilation is not performed. Photic stimulation does not alter the record. No definite drowsiness patterns. Stage II sleep is not seen. EKG is uninterpretable. IMPRESSION AND CLINICAL CORRELATION: Abnormal, technically limited, routine EEG due to moderate generalized slowing indicative of a moderate nonspecific encephalopathy. No definite epileptiform discharges or seizures seen on the current study. This does not rule out an underlying seizure disorder. cc: MD Sid Larsen Jr, MD
--- NOTE | 2018-05-23 09:39 | PROGRESS NOTE ---
DATE: 05/23/2018 SUBJECTIVE: The patient does have his eyes open. He is looking around. He is on Diprivan so he is sedated some on the ventilator, overall a little bit better. CT scan of his head did not show any areas of hypoxia. His echocardiogram was essentially normal. These are good signs. OBJECTIVE: Blood pressure is 133/79, respirations 22, pulse 89, and temp 98.8 degrees Fahrenheit. LABORATORY: White count 9040, hemoglobin 10.9, and hematocrit 35. Blood gas which shows a pH of 7.37, pCO2 of 74, and PO2 of 79. Electrolytes essentially normal. GFR is greater than 60. BUN 15, creatinine 0.4, albumin is a little low at 2.8. Protein is a little low at 6.1. ASSESSMENT: 1. Cardiac arrest. 2. Respiratory arrest. 3. Chronic obstructive pulmonary disease. 4. Pneumonia. 5. Encephalopathy. Chest x-ray shows pleural and parenchymal fibrosis with possibility of superimposed pneumonia cannot be excluded. PLAN: We will continue to support. Appreciate help from all the specialists. The patient's sister was in the room with him. We talked and discussed his situation as well. cc: Sid Guerrero Jr, MD
[2018-05-23] MEDS: KEPPRA 500 MG/NS 500 MG/100 ML IVPB IV SCH ×2 (10:24→22:41)
--- NOTE | 2018-05-23 16:28 | PROGRESS NOTE ---
DATE: 05/23/2018 SUBJECTIVE: No major overnight events. Patient's sedation was held around 11 o'clock this morning and continues to be on hold. He has not had any significant arousal. His heart rate and respiratory rate are improved. OBJECTIVE: Vital Signs: T-max of 99.9 degrees yesterday morning, afebrile since, blood pressure recent 120s to 130s systolic over 70s to 80s diastolic, pulse 70s to 80s, respirations 20s and he is breathing over the ventilator. General: Mr. Dean is supine in bed, intubated. His eyes are open. His gaze is conjugate. At 1 point they seemed to be looking more downward but subsequent to that they were looking upward and during my encounter they did seem to shift direction variously. Neurologic: Pupils are equal, 3.5 mm both eyes, reactive to bright light. Gaze is conjugate. Face appears to be symmetric. There was not much facial movement at my time at the bedside. No consistently blink to threat. Corneal reflexes were present bilaterally. The patient is deaf. I did not get any movement of his extremities on exam today with the exception of some subtle flickering of the right foot to plantar stimulation. There is no clonus. DIAGNOSTICS: Normal white count. PCO2 of 74. Sodium normal. Other labs reviewed in the chart. ASSESSMENT AND PLAN: 1. Status post respiratory and cardiac arrest, status post cooling procedure. He was rewarmed to normal body temperature in the morning of 05/21/2018. No seizure-like activity since that time. Continue supportive care and continue to monitor his neurologic status clinically. He had a reassuring head CT recently but that can be repeated if clinical indication arises. 2. Static encephalopathy and intractable epilepsy. No seizure activity reported since he began the rewarming process. Continue Keppra and Depacon regimen IV. He will need to switch to his home medications orally once he is more stable and able to do that. We can repeat the EEG if he does not begin to wake up more. cc: MD Sid Larsen Jr, MD MTDD
--- NOTE | 2018-05-23 20:34 | VASCULAR LAB ---
DATE: 05/22/2018 ULTRASOUND EVALUATION OF RIGHT COMMON CAROTID ARTERY AND INTERNAL JUGULAR VEIN REFERRING PHYSICIAN: Dr. Zaire Mcknight. READING PHYSICIAN: Dr. Talha Yoo. MINING DETAIL DRAFTSPERSON: Barbara. INDICATION: Arterial central line insertion. FINDINGS: The carotid artery catheter had been removed prior to the study. The carotid artery was evaluated throughout its course. There was no evidence for a fistula or pseudoaneurysm. There did appear to be a slight indentation of the intima at the level of insertion, but again no bleeding, hematoma, or pseudoaneurysm was noted in that area. The internal jugular vein was compressible and patent without thrombus. INTERPRETATION: Minimal ultrasound changes of the carotid artery without any indication of immediate complication. The internal jugular vein appears normal. cc: MD Zaire Jj MD Roger H. Moss Jr, MD
[2018-05-24] MEDS: ZOSYN 3.375 GM in NS 50 ML IV SCH ×5 (01:40→23:59)
[2018-05-24] MEDS: SOLU-MEDROL IV SCH ×4 (01:41→23:59)
[2018-05-24] MEDS: VANCOMYCIN 1,800 MG in NS 500 ML IV SCH ×2 (01:47→21:19)
[2018-05-24] MEDS: DUONEB (A & A) INH SCH ×6 (03:24→23:31)
[2018-05-24] MEDS: DEPACON IV SCH ×4 (04:32→23:58)
[2018-05-24] MEDS: NS IV SCH ×4 (04:32→23:58)
[2018-05-24 04:48] LABS: ALLEN TEST YES; BE 12.1 mmoll (-3.0-3.0); BLOOD TYPE ARTERIAL; HCO3-(ACT) 34.3 mmoll (20.0-26.0); METHB 1.4 % (0.0-1.5); O2(CT) 15.9 mL/dL (15.0-23.0); PO2(98.6) 69 mmHg (60-100); SAMPLE BLOOD; SAO2 96.3 % (95.0-100.0); SRATE 20 BPM; THB 12.1 g/dL (11.5-17.4); TVOL 500 mL; pH(98.6) 7.42 (7.35-7.45)
[2018-05-24 04:49] LABS: MODALITY VENTILATOR
[2018-05-24 04:50] LABS: PCO2(98.6) 60 mmHg (35-45)
[2018-05-24 06:17] LABS: HEMATOCRIT 40.9 % (42.0-52.0); HEMOGLOBIN 13.4 g/dL (14.0-18.0); MCH 31.3 PG (27-31); MCHC 32.8 g/dL (33-37); MCV 95.6 FL (81-99); MPV 11.7 FL (7.4-10.4); RBC 4.28 XMIL (4.7-6.1); RDW 14.4 % (11.5-14.5); WBC 9.61 X1000 (4.8-10.8)
[2018-05-24 06:19] LABS: AGAP 7; ALB/GLOB RATIO 0.9; ALBUMIN 2.9 g/dL (3.5-5.0); ALKALINE PHOSPHATASE 63 U/L (32-122); BUN 16 mg/dL (8-22); CALCIUM 8.6 mg/dL (8.8-10.2); CHLORIDE 100 mmol/L (98-107); COSMO 283; CREATININE 0.3 mg/dL (0.7-1.2); ESTIMATED GFR > 60; GLUCOSE 135 mg/dL (70-104); GOT 24 U/L (10-34); GPT 12 U/L (10-44); POTASSIUM 4.3 mmol/L (3.5-5.1); SODIUM 140 mmol/L (136-145); TCO2 33 mmol/L (25-35); TOTAL BILIRUBIN 0.15 mg/dL (0.20-1.00)
--- NOTE | 2018-05-24 06:47 | Diag Imaging Result Doc PS360 ---
EXAM: CHEST-PORTABLE HISTORY: resp failure TECHNIQUE: Portable chest single view COMPARISON: 05/23/2018 FINDINGS: Endotracheal, nasogastric, and right sided PICC line are unchanged. Infiltrates are less pronounced on the current study. No cardiomegaly. Question trace left pleural fluid. IMPRESSION: Mild interval improvement. Electronically signed by Man Benavides 05/24/2018 6:45 AM
[2018-05-24] MEDS: PEPCID IV SCH ×2 (08:09→21:20)
[2018-05-24] MEDS: LOVENOX SUBQ SCH ×2 (08:09→21:20)
[2018-05-24] MEDS: SODIUM CHLORIDE 0.9% INJ SCH ×2 (08:10→21:20)
[2018-05-24] MEDS: KEPPRA 500 MG/NS 500 MG/100 ML IVPB IV SCH (10:00)
[2018-05-24] MEDS ORDERED: KEPPRA 500 MG in NS 100 ML IV ONE (10:05)
[2018-05-24] MEDS: ATIVAN IV PRN ×2 (10:14→19:13)
--- NOTE | 2018-05-24 10:18 | PROGRESS NOTE ---
DATE: 05/24/2018 SUBJECTIVE: Mr. Dean was admitted almost a week ago following primary respiratory arrest leading to cardiac arrest. He was managed with cooling and then rewarming. He has had some twitching, but not absolutely definite roselyn seizure activity until this morning. This morning, I observed typical generalized clonic seizure with eyes deviated tonically to the right. By report, this behavior has been present for 20-30 minutes. He has continued valproic acid 750 mg IV q.i.d. matching his 3000 mg daily dose with divalproex 1000 mg PO t.i.d. at home. He has been managed with levetiracetam 500 mg IV q. 12 hours this admission. Levetiracetam seemed to be effective and well tolerated during admission a few months ago. I will empirically increase levetiracetam dose to 1000 mg q. 12 hours. We might need to check levels later. Unlikely we will see significant levetiracetam toxicity with his excellent renal function. Valproic acid level was just below 50 several days ago, and that dose might be adjusted upward if he has more clinical seizures. Also, we might need to consider repeating his EEG later. I do not think EEG would climate change risk assessor right now. Discussed seizure management plans with mother by phone and sister present in ICU. Discussed very frankly the uncertain prognosis for recovery to baseline mentally following arrest. Time will tell. Thanks for asking Neurology to see Bigg. cc: MD Sid Bazan III, Jr, MD MTDD
--- NOTE | 2018-05-24 13:56 | PROGRESS NOTE ---
DATE: 05/24/2018 SUBJECTIVE: The patient is not responsive at this point. He is on a ventilator. He has been having seizures again. Dr. Rader came by and increased his dosage on his Keppra, and right now he is not seizing, but he has had a struggle with this. The seizures would last for over 30 minutes; he has had at least two that lasted for over 30 minutes. OBJECTIVE: Vital Signs: Show blood pressure 121/79, pulse 91, respirations 20, temperature 99 degrees Fahrenheit. HEENT: Normocephalic. He is resting on the ventilator. Neck: Supple. Lungs: Have rales and rhonchi anteriorly. Heart: Regular rate and rhythm without murmurs, gallops, friction rubs. Abdomen: Soft. Active bowel sounds. No organomegaly or tenderness. Neurologic exam: Hard to treat at this time. Not having seizures. LABS: White count is 9610, hemoglobin 13.4, hematocrit 40.9. Blood gas shows a pH of 7.42, pCO2 down to 60, PO2 69. Electrolytes essentially normal. Albumin 2.9, but total protein 6.0. ASSESSMENT: 1. Respiratory arrest. 2. Cardiac arrest. 3. Ventilator dependent. 4. Pneumonia. 5. Chronic obstructive pulmonary disease. 6. Encephalopathy. 7. Seizures. PLAN: Continue to support. Appreciate the help from all the specialists. I did talk with his daughter, who has related to me that their father is on a ventilator at [facility] with cardiac disease. The patient's mother is over there with his father. cc: Sid Guerrero Jr, MD
--- NOTE | 2018-05-24 19:01 | PULMONOLOGY PROGRESS NOTE ---
DATE: 05/24/2018 SUBJECTIVE: The patient was actively seizing upon evaluation this morning. He remains on mechanical ventilation. When not seizing, he has not been following commands. OBJECTIVE: Vital Signs: The patient has been afebrile for the last 24 hours. Blood pressure 106/68, heart rate 81, respiratory rate 26-32, oxygen saturation 98%. HEENT: Pupils are equal and reactive. Oropharynx appears clear. Neck is supple. Chest reveals coarse rhonchi bilaterally. Cardiac: S1, S2. Abdomen is soft. Extremities are without edema. DIAGNOSTIC STUDIES: Arterial blood gas reveals pH 7.42, pCO2 of 60, PO2 of 69. White blood count 9.6, hemoglobin 13.4, platelet count 120,000. Sodium 140, potassium 4.3, chloride 100, bicarbonate 33, BUN 16, creatinine 0.3. Chest x-ray reveals bilateral infiltrates which are slightly less prominent than yesterday. Nasogastric tube, endotracheal tube, and PICC line are in place. IMPRESSION: A 38-year-old with: 1. Cardiopulmonary arrest. 2. Status epilepticus. 3. Chronic hypercapnic and chronic hypoxemic respiratory failure. PLAN: 1. Continue full ventilatory support. 2. Seizure treatment augmentation, as outlined by Dr. Rader. 3. Routine gastric acid suppression. 4. Routine DVT prophylaxis. PROGNOSIS: The overall prognosis appears to be guarded. His mother has been a long-time caregiver and will have difficulty accepting his prognosis if he does not have clinical improvement. cc: MD Sid Macario Jr, MD
[2018-05-24] MEDS: KEPPRA 1,000 MG in NS 100 ML IV SCH (21:20)
[2018-05-25] MEDS: ATIVAN IV PRN ×3 (03:32→20:21)
[2018-05-25] MEDS: DUONEB (A & A) INH SCH ×6 (03:42→23:20)
[2018-05-25 04:32] LABS: ALLEN TEST YES; BE 10.4 mmoll (-3.0-3.0); BLOOD TYPE ARTERIAL; METHB 1.2 % (0.0-1.5); O2(CT) 15.3 mL/dL (15.0-23.0); O2HB 93.7 % (95.0-99.0); PO2(98.6) 72 mmHg (60-100); SAMPLE BLOOD; SAO2 96.7 % (95.0-100.0); SRATE 20 BPM; THB 11.6 g/dL (11.5-17.4); TVOL 500 mL; pH(98.6) 7.39 (7.35-7.45)
[2018-05-25 04:34] LABS: MODALITY VENTILATOR; PCO2(98.6) 62 mmHg (35-45)
[2018-05-25] MEDS: NS IV SCH ×4 (04:54→22:43)
[2018-05-25] MEDS: DEPACON IV SCH ×4 (04:54→22:43)
[2018-05-25] MEDS: ZOSYN 3.375 GM in NS 50 ML IV SCH ×4 (05:06→23:55)
[2018-05-25 06:26] LABS: HEMATOCRIT 34.8 % (42.0-52.0); HEMOGLOBIN 11.2 g/dL (14.0-18.0); MCH 30.9 PG (27-31); MCHC 32.2 g/dL (33-37); MCV 96.1 FL (81-99); MPV 11.9 FL (7.4-10.4); RBC 3.62 XMIL (4.7-6.1); RDW 14.1 % (11.5-14.5); WBC 8.25 X1000 (4.8-10.8)
[2018-05-25 06:45] LABS: AGAP 7; ALB/GLOB RATIO 0.9; ALBUMIN 2.6 g/dL (3.5-5.0); ALKALINE PHOSPHATASE 58 U/L (32-122); BUN 17 mg/dL (8-22); CALCIUM 8.6 mg/dL (8.8-10.2); CHLORIDE 98 mmol/L (98-107); COSMO 278; CREATININE 0.3 mg/dL (0.7-1.2); ESTIMATED GFR > 60; GLUCOSE 140 mg/dL (70-104); GOT 21 U/L (10-34); GPT 12 U/L (10-44); POTASSIUM 4.4 mmol/L (3.5-5.1); SODIUM 137 mmol/L (136-145); TCO2 32 mmol/L (25-35); TOTAL BILIRUBIN 0.16 mg/dL (0.20-1.00); TOTAL PROTEIN 5.5 g/dL (6.3-8.3)
--- NOTE | 2018-05-25 07:28 | Diag Imaging Result Doc PS360 ---
EXAM: CHEST-PORTABLE - 05/25/2018 HISTORY: resp failure TECHNIQUE: Portable chest COMPARISON: 05/24/2018 FINDINGS: Endotracheal tube, nasogastric tube, and PICC remain in place. Heart size is normal. The has been apparent decrease in infiltrates in the left perihilar and right suprahilar regions. There are apparent COPD changes and pulmonary scarring. There is no pneumothorax identified. IMPRESSION: Decrease in infiltrates at left perihilar and right suprahilar regions. Electronically signed by Braden Clifton 05/25/2018 7:26 AM
[2018-05-25] MEDS: KEPPRA 1,000 MG in NS 100 ML IV SCH ×2 (08:09→20:21)
[2018-05-25] MEDS: LOVENOX SUBQ SCH ×2 (08:10→20:21)
[2018-05-25] MEDS: SODIUM CHLORIDE 0.9% INJ SCH ×2 (08:10→20:22)
[2018-05-25] MEDS: SOLU-MEDROL IV SCH ×2 (08:10→16:14)
[2018-05-25] MEDS: PEPCID IV SCH ×2 (08:10→20:21)
--- NOTE | 2018-05-25 10:27 | PROGRESS NOTE ---
DATE: 05/25/2018 SUBJECTIVE: Patient opens his eyes, but is otherwise unresponsive. He has had some seizures and had some last night, but has not had any this morning. Chest x-ray shows improvement of the dense infiltrates. White count is 8250, hemoglobin 11.2, hematocrit 34.8. Blood gas shows a pH of 7.39 pCO2 62, PO2 of 72 and bicarbonate 33. Base excess 10.4, oxyhemoglobin 93.7. He is on 30% FiO2. Chemistries are basically normal. Blood cultures have been negative. OBJECTIVE: Vital Signs: On physical examination, blood pressure 114/78, respirations 23, temperature 99 degrees Fahrenheit. Pulse is also 99 beats per minute. HEENT: He has his eyes open, but he does not follow. Even if I touch his forehead, he does seem to react. Lungs: Have a few rales anteriorly, but sounds better than it has previously. Heart: Regular rate and rhythm to sinus tachycardia without murmurs, gallops, or friction rubs. Abdomen: Soft. Active bowel sounds. No organomegaly or tenderness. Neurological Exam: Not responsive at this time, although he has had some IV Ativan for when he has had the seizures as far as anything that would sedate him. ASSESSMENT: 1. Respiratory arrest. 2. Cardiac arrest. 3. Pneumonia. 4. Chronic obstructive pulmonary disease. 5. Fibrotic lung disease. 6. Encephalopathy. 7. Seizure disorder. PLAN: Continue to control seizures. Wean from the ventilator at Pulmonology's discretion. Did talk with the patient's sister who was in the room. Family has had a hard time recently with the patient on a ventilator, and his father is at [facility] on a ventilator with cardiac problems as well. cc: Sid Guerrero Jr, MD
[2018-05-25] MEDS ORDERED: CALMOSEPTINE OINTMENT TOP PRN (13:11)
[2018-05-25] MEDS: VANCOMYCIN 1,400 MG in NS 250 ML IV SCH (15:48)
--- NOTE | 2018-05-25 21:15 | PULMONOLOGY PROGRESS NOTE ---
DATE: 05/25/2018 SUBJECTIVE: The patient opens his eyes. He does not track the examiner. He has had no additional seizures this morning, but has had some forehead twitching, which may be a prodrome to his seizures per nursing report. OBJECTIVE: Vital Signs: Blood pressure 121/82, heart rate 99, respiratory rate 16, oxygen saturation 99%. HEENT: Pupils are equal with mild temporal wasting. Oropharynx appears clear. Neck: Supple. Chest: Reveals rhonchi bilaterally. Cardiac exam: S1-S2. Abdomen: Soft and without hepatosplenomegaly. Extremities: Are without edema. LABORATORIES: Arterial blood gas reveals a pH 7.39, pCO2 of 62, pO2 of 72. White blood count 8.25, hemoglobin 11.2, platelet count 136,000. Sodium 137, potassium 4.4, chloride 98, bicarbonate 32, BUN 17, creatinine 0.3. Chest x-ray reveals slight decrease in bilateral infiltrates. Sputum culture reveals normal jeannette. IMPRESSION: A 38-year-old with: 1. Status post cardiopulmonary arrest. 2. Status epilepticus. 3. Prior history of meningitis as a child. 4. Acute on chronic hypoxemic respiratory failure. 5. Chronic hypercapnic respiratory failure. 6. Protein calorie malnutrition. RECOMMENDATIONS: 1. Continue full ventilatory support. He will have a slight decrease in respiratory rate. 2. Continue seizure management per Dr. Rader. 3. Continue deep vein thrombosis prophylaxis. 4. Continue gastric acid suppression. 5. Continue tube feeds. 6. Overall prognosis appears guarded, but he has had some improvement in his mental status with decreased seizures over the last 24 hours. TIME SPENT: Critical care 30+ minutes. cc: MD Sid Macario Jr, MD
[2018-05-26] MEDS: SOLU-MEDROL IV SCH ×3 (01:09→16:10)
[2018-05-26] MEDS: ATIVAN IV PRN ×4 (02:54→23:52)
[2018-05-26] MEDS: DUONEB (A & A) INH SCH ×6 (03:16→23:29)
[2018-05-26] MEDS: VANCOMYCIN 1,400 MG in NS 250 ML IV SCH ×2 (03:29→16:09)
[2018-05-26] MEDS: DEPACON IV SCH ×4 (04:24→23:52)
[2018-05-26] MEDS: NS IV SCH ×4 (04:24→23:52)
[2018-05-26 04:49] LABS: ALLEN TEST YES; BE 10.8 mmoll (-3.0-3.0); BLOOD TYPE ARTERIAL; HCO3-(ACT) 33.3 mmoll (20.0-26.0); METHB 0.7 % (0.0-1.5); O2(CT) 16.1 mL/dL (15.0-23.0); O2HB 94.4 % (95.0-99.0); PO2(98.6) 72 mmHg (60-100); SAMPLE BLOOD; SAO2 97.2 % (95.0-100.0); SRATE 20 BPM; THB 12.1 g/dL (11.5-17.4); TVOL 500 mL
[2018-05-26 04:50] LABS: MODALITY VENTILATOR; PCO2(98.6) 61 mmHg (35-45)
[2018-05-26] MEDS: ZOSYN 3.375 GM in NS 50 ML IV SCH ×3 (05:36→17:40)
[2018-05-26 06:19] LABS: HEMATOCRIT 36.8 % (42.0-52.0); HEMOGLOBIN 12.1 g/dL (14.0-18.0); MCH 31.2 PG (27-31); MCHC 32.9 g/dL (33-37); MCV 94.8 FL (81-99); MPV 11.5 FL (7.4-10.4); RBC 3.88 XMIL (4.7-6.1); RDW 13.9 % (11.5-14.5); WBC 8.61 X1000 (4.8-10.8)
[2018-05-26 06:43] LABS: AGAP 8; ALB/GLOB RATIO 0.9; ALBUMIN 2.8 g/dL (3.5-5.0); ALKALINE PHOSPHATASE 65 U/L (32-122); BUN 19 mg/dL (8-22); CALCIUM 8.6 mg/dL (8.8-10.2); CHLORIDE 104 mmol/L (98-107); COSMO 290; CREATININE 0.4 mg/dL (0.7-1.2); ESTIMATED GFR > 60; GLUCOSE 142 mg/dL (70-104); GOT 19 U/L (10-34); GPT 13 U/L (10-44); POTASSIUM 4.6 mmol/L (3.5-5.1); SODIUM 143 mmol/L (136-145); TCO2 31 mmol/L (25-35); TOTAL BILIRUBIN 0.17 mg/dL (0.20-1.00)
--- NOTE | 2018-05-26 07:04 | Diag Imaging Result Doc PS360 ---
EXAM: CHEST-PORTABLE HISTORY: resp failure TECHNIQUE: Portable chest single view COMPARISON: 05/25/2018 FINDINGS: No change in the nasogastric tube, endotracheal tube, or right-sided PICC line. There are increased interstitial markings in the upper and mid lungs with more mild markings in the lung bases. No cardiomegaly. Small left effusion. IMPRESSION: No interval improvement. Electronically signed by Man Benavides 05/26/2018 7:01 AM
[2018-05-26 07:34] LABS: MAGNESIUM 1.8 mg/dL (1.5-2.7); PHOSPHORUS 3.6 mg/dL (2.7-4.5)
[2018-05-26] MEDS: LOVENOX SUBQ SCH ×2 (08:12→20:22)
[2018-05-26] MEDS: PEPCID IV SCH ×2 (08:12→21:56)
[2018-05-26] MEDS: SODIUM CHLORIDE 0.9% INJ SCH ×2 (08:12→20:22)
[2018-05-26] MEDS: KEPPRA 1,000 MG in NS 100 ML IV SCH ×2 (08:13→20:22)
--- NOTE | 2018-05-26 11:34 | PROGRESS NOTE ---
DATE: 05/26/2018 SUBJECTIVE: The patient has been on Ativan. He has had some seizure activity. Still has a little twitching with the Ativan, so there may still be some seizure activity going on that is muted by the Ativan. His mother and his sister are in the room and we talked as well. OBJECTIVE: Vitals: Blood pressure is 111/76, respirations 20, pulse 100, oxygen saturation is 96%. Temperature 99.7 degrees Fahrenheit. HEENT: He is normocephalic, he is not very responsive but does have his eyes open and is looking as mother. Neck: Supple. Lungs: Scattered rales and rhonchi. Heart: Regular rate and rhythm without murmurs, gallops, or friction rubs, sinus tachycardia. Abdomen: Soft. Active bowel sounds. No organomegaly or tenderness. Neurological: Hard to assess at this time. He is on Ativan and on a ventilator. LABORATORY: Hematology: Blood gas today showed pH 7.40, pCO2 61, PO2 72. Lactate was 1. He is on 30% FiO2. Chemistry profile: Stable. Albumin a little low at 2.8. Total protein a little low at 6. White count 8610. Hemoglobin 12.1. Hematocrit 36.8. IMAGING: Chest x-ray had shown improvement yesterday and is about the same as yesterday's today. ASSESSMENT: 1. Respiratory arrest. 2. Status post cardiac arrest. 3. Status epilepticus. 4. Encephalopathy from meningitis from H flu as a child. 5. Chronic hypoxic respiratory failure. 6. Malnutrition. 7. Chronic hypercapnic respiratory failure. PLAN: We will continue support. Dr. Horton has seen him this weekend, so Dr. Cruz during the week for Pulmonology. Dr. Rader and Dr. Davalos is seeing him for seizure management. We will continue to follow chest x-rays and blood gases. Condition critical. cc: Sid Guerrero Jr, MD
--- NOTE | 2018-05-26 18:46 | PULMONOLOGY PROGRESS NOTE ---
DATE: 05/26/2018 SUBJECTIVE: The patient is awake. He is interacting with his mother. The patient has not had a seizure in the last 24 hours according to the nurses. OBJECTIVE: Vital Signs: Heart rate 105, respiratory rate 20, blood pressure 107/69, oxygen saturation 96%. HEENT: Pupils are equal and reactive. Oropharynx is appears clear. Neck: Supple. Chest: Reveals bilateral rhonchi. Cardiac: S1, S2 with increased rate. Abdomen: Soft, with positive bowel sounds. Extremities: Reveal trace to 1+ peripheral edema. LABORATORIES: White blood count 8.6, hemoglobin 12.1, platelet count 155,000. Sodium 143, potassium 4.6, chloride 104, bicarbonate 31, BUN 19, creatinine 0.4. Arterial blood gas reveals a pH 7.40, pCO2 of 21, PO2 of 72. Chest x-ray reveals bilateral infiltrates without change predominantly in the upper lobes. No new microbiology data. IMPRESSION: A 38-year-old with: 1. Cardiopulmonary arrest. 2. Status epilepticus. 3. History of meningitis as a child. 4. Acute on chronic hypoxemic respiratory failure. 5. Chronic hypercapnic respiratory failure. 6. Protein calorie malnutrition. RECOMMENDATIONS: 1. Continue ventilatory support. The patient was placed on a spontaneous breathing trial. His respiratory rate increased and he had moderate work of breathing and he was placed back on mechanical ventilation. 2. Continue seizure management per Dr. Rader. 3. Deep vein thrombosis. 4. Continue tube feeds. 5. Gastric acid suppression. 6. Prognosis is guarded, but mental status continues to slowly improve. TIME SPENT: Time spent critical care 30+ minutes. cc: MD Sid Macario Jr, MD
[2018-05-27] MEDS: ZOSYN 3.375 GM in NS 50 ML IV SCH ×4 (00:51→18:02)
[2018-05-27] MEDS: SOLU-MEDROL IV SCH ×3 (01:25→16:58)
[2018-05-27] MEDS: DUONEB (A & A) INH SCH ×6 (03:29→23:20)
[2018-05-27] MEDS: NS IV SCH (04:18)
[2018-05-27] MEDS: DEPACON IV SCH (04:18)
[2018-05-27] MEDS: VANCOMYCIN 1,400 MG in NS 250 ML IV SCH ×2 (04:18→16:21)
[2018-05-27 05:30] LABS: ALLEN TEST YES; BE 7.9 mmoll (-3.0-3.0); BLOOD TYPE ARTERIAL; PO2(98.6) 73 mmHg (60-100); SAMPLE BLOOD; SRATE 15 BPM; TVOL 550 mL; pH(98.6) 7.36 (7.35-7.45)
[2018-05-27 05:31] LABS: MODALITY VENTILATOR
[2018-05-27 05:32] LABS: PCO2(98.6) 63 mmHg (35-45)
[2018-05-27 06:30] LABS: HEMATOCRIT 36.9 % (42.0-52.0); MCH 30.9 PG (27-31); MCHC 32.5 g/dL (33-37); MCV 95.1 FL (81-99); MPV 12.1 FL (7.4-10.4); RBC 3.88 XMIL (4.7-6.1); RDW 14.1 % (11.5-14.5); WBC 8.81 X1000 (4.8-10.8)
--- NOTE | 2018-05-27 07:18 | Diag Imaging Result Doc PS360 ---
EXAM: CHEST-PORTABLE HISTORY: resp failure TECHNIQUE: Portable chest single view COMPARISON: 05/26/2018 FINDINGS: No change in the endotracheal tube, nasogastric tube, or the right-sided PICC line. The lungs are well expanded. No cardiomegaly. There are increased interstitial markings bilaterally, particularly in the upper lungs. The overall appearance is fairly similar to that of the prior exam. IMPRESSION: No interval improvement. Electronically signed by Man Benavides 05/27/2018 7:16 AM
[2018-05-27 07:21] LABS: AGAP 7; ALB/GLOB RATIO 0.9; ALBUMIN 2.9 g/dL (3.5-5.0); ALKALINE PHOSPHATASE 68 U/L (32-122); BUN 23 mg/dL (8-22); CALCIUM 8.6 mg/dL (8.8-10.2); CHLORIDE 100 mmol/L (98-107); COSMO 283; CREATININE 0.4 mg/dL (0.7-1.2); ESTIMATED GFR > 60; GLUCOSE 156 mg/dL (70-104); GOT 19 U/L (10-34); GPT 13 U/L (10-44); POTASSIUM 4.5 mmol/L (3.5-5.1); SODIUM 138 mmol/L (136-145); TCO2 31 mmol/L (25-35); TOTAL BILIRUBIN 0.19 mg/dL (0.20-1.00)
[2018-05-27] MEDS: KEPPRA 1,000 MG in NS 100 ML IV SCH ×2 (08:55→16:57)
[2018-05-27] MEDS: LOVENOX SUBQ SCH ×2 (08:56→20:04)
[2018-05-27] MEDS: ATIVAN IV PRN ×3 (08:56→20:01)
[2018-05-27] MEDS: PEPCID IV SCH ×2 (08:56→20:04)
--- NOTE | 2018-05-27 09:24 | PROGRESS NOTE ---
DATE: 05/27/2018 SUBJECTIVE: The patient is currently having a seizure. He has been given IV Ativan. He has been having seizures somewhat off and on over the weekend. He was given Ativan. He is on anticonvulsants as well, but just has continued to have seizures. OBJECTIVE: General: At this time, he has stiffened because he is having seizures. Vitals: Blood pressure 108/68, respirations 20, pulse 90, temperature 98.4 degrees Fahrenheit. HEENT: He is normocephalic. Lungs: Have a few rales anteriorly. Heart: Regular rate and rhythm to sinus tachycardia without murmurs, gallops, or friction rubs. Abdomen: Soft. Active bowel sounds. No organomegaly or tenderness. Neurological: The patient having grand mal seizure. IMAGING: Chest x-ray shows no change in infiltrates from last chest x-ray. LABORATORY: Shows a white count of 8810, hemoglobin 12, hematocrit 36.9, platelet count 153,000. Blood gas shows a pH of 7.36, pCO2 of 63, PO2 of 73 on the ventilator with an FiO2 of 30. Sodium 138, potassium 4.5, BUN 23, creatinine 0.4. The rest of electrolytes essentially normal. Albumin is 2.9, total protein 6, and his valproic acid level was a little low at 331 and 47.90. His Tegretol level was 5.9 which is therapeutic. ASSESSMENT: 1. Respiratory arrest. 2. Cardiac arrest. 3. Seizures ongoing. 4. Encephalopathy. 5. Chronic obstructive pulmonary disease and fibrotic lung disease. PLAN: Continue support. We will make sure Neurology is aware of ongoing seizures and see if there is something else we can do to help that, whether it is to increase one of his medications or add another medication. cc: Sid Guerrero Jr, MD
--- NOTE | 2018-05-27 09:56 | PROGRESS NOTE ---
DATE: 05/27/2018 Mr. Dean had some more seizures recognized over the weekend. He had a seizure earlier this morning with features typical of a generalized clonic episode. I do not think there is anything much different from the general medical standpoint. On brief exam this morning, Bigg is supine, still, intubated, mechanically ventilated. He did not respond. I did not see any behavior to suggest seizure during my time at the bedside. I discussed seizure management plans with sister at the bedside and reviewed discussion that I had Sunday by phone with his mother. I hope that we can get seizures under control. We will increase his levetiracetam dose from 1000 mg q.12 hours to 1000 mg q.8 hours. He has very good renal function and we should not see any problems with that dose frequency. We will also increase valproic acid dose from 750 mg q.6 hours to 1000 mg q.6 hours IV. Initial valproic acid level was slightly subtherapeutic on his baseline 3000 mg daily dose. I will order serum levels on both levetiracetam and valproic acid to be checked soon after he has received the increased doses. Further plans will depend on his clinical course. We might consider EEG later but that would not change management consultant today. Thanks for asking neurology to see Mr. Dean. cc: MD iSd Bazan III, Jr, MD MTDD
[2018-05-27] MEDS: DEPACON 1,000 MG in NS 50 ML IV SCH ×2 (11:24→16:57)
[2018-05-27] MEDS: SODIUM CHLORIDE 0.9% INJ SCH ×2 (11:24→20:04)
[2018-05-28] MEDS ORDERED: LEVOPHED 8 MG in D5 1/2 NS 250 ML IV SCH ×2
[2018-05-28] MEDS: LEVOPHED 8 MG in D5 1/2 NS 250 ML IV SCH (00:40)
[2018-05-28] MEDS: NS 1,000 ML IV SCH ×2 (00:41→15:45)
[2018-05-28] MEDS: DEPACON 1,000 MG in NS 50 ML IV SCH ×5 (00:41→22:14)
[2018-05-28] MEDS: KEPPRA 1,000 MG in NS 100 ML IV SCH ×3 (00:42→17:28)
[2018-05-28] MEDS: ZOSYN 3.375 GM in NS 50 ML IV SCH ×5 (00:42→23:01)
[2018-05-28] MEDS: SOLU-MEDROL IV SCH ×3 (00:43→17:28)
[2018-05-28] MEDS: ATIVAN IV PRN ×4 (00:52→22:56)
[2018-05-28] MEDS: DUONEB (A & A) INH SCH ×6 (03:17→23:00)
[2018-05-28] MEDS: VANCOMYCIN 1,400 MG in NS 250 ML IV SCH ×2 (04:35→20:18)
[2018-05-28 05:35] LABS: ALLEN TEST YES; BE 8.5 mmoll (-3.0-3.0); BLOOD TYPE ARTERIAL; HCO3-(ACT) 31.5 mmoll (20.0-26.0); PO2(98.6) 75 mmHg (60-100); SAMPLE BLOOD; SRATE 15 BPM; TVOL 500 mL
[2018-05-28 05:36] LABS: MODALITY VENTILATOR; PCO2(98.6) 57 mmHg (35-45)
[2018-05-28 06:38] LABS: HEMATOCRIT 36.4 % (42.0-52.0); MCH 31.2 PG (27-31); MCV 94.5 FL (81-99); MPV 13.3 FL (7.4-10.4); RBC 3.85 XMIL (4.7-6.1); RDW 14.1 % (11.5-14.5); WBC 12.95 X1000 (4.8-10.8)
[2018-05-28 07:31] LABS: AGAP 11; ALKALINE PHOSPHATASE 69 U/L (32-122); BUN 23 mg/dL (8-22); CALCIUM 8.7 mg/dL (8.8-10.2); CHLORIDE 100 mmol/L (98-107); COSMO 282; CREATININE 0.4 mg/dL (0.7-1.2); ESTIMATED GFR > 60; GLUCOSE 150 mg/dL (70-104); GOT 18 U/L (10-34); GPT 14 U/L (10-44); POTASSIUM 4.5 mmol/L (3.5-5.1); SODIUM 138 mmol/L (136-145); TCO2 27 mmol/L (25-35); TOTAL BILIRUBIN 0.19 mg/dL (0.20-1.00); TOTAL PROTEIN 5.9 g/dL (6.3-8.3)
--- NOTE | 2018-05-28 08:16 | Diag Imaging Result Doc PS360 ---
EXAM: CHEST-PORTABLE INDICATION: resp failure TECHNIQUE: One view COMPARISON: 05/27/2018 FINDINGS: Support tubes and lines are in stable positions. There are increased interstitial markings bilaterally similar to the previous study. No new consolidation is identified. Cardiac silhouette is stable. IMPRESSION: Stable chest. Electronically signed by Leon Vicente 05/28/2018 8:13 AM
--- NOTE | 2018-05-28 09:47 | PROGRESS NOTE ---
DATE: 05/28/2018 SUBJECTIVE: The patient is still not respond. He is on a ventilator. Stares ahead but does respond otherwise. Has still had possibly some seizures, has had a little twitching around his forehead. Dr. Rader regulating his seizure medications. OBJECTIVE: Vital signs: Blood pressure is 106/75, pulse 91, and regular, respirations 19, temperature 99 degrees Fahrenheit. HEENT: He is normocephalic and on the ventilator. Lungs: Have a few rales anteriorly though this seems to have improved a little. Heart: Regular rate and rhythm without murmurs, gallops, friction rubs. Abdomen: Soft. Active bowel sounds. No organomegaly or tenderness. Neurological: The patient is just staring straight ahead and nonresponsive. LABORATORY DATA: White counts 91391, hemoglobin 12, hematocrit 36.4. Blood gas shows a pH of 7.40 with a pCO2 57, PO2 of 75 on 30% FiO2. Rest of the lab work is fairly stable. Albumin is 3.0, total protein 5.9. Has not been his Synthroid, so we will restart that and draw a thyroid profile. IMAGING: Chest x-ray shows increased interstitial markings bilaterally, similar to the previous study. No new consolidations. ASSESSMENT: 1. Respiratory arrest. 2. Cardiac arrest. 3. Pneumonia. 4. Fibrotic lung disease and chronic obstructive pulmonary disease. 5. 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 PLAN: Continue support. Did discuss this with his sister who was present. cc: Sid Guerrero Jr, MD
[2018-05-28] MEDS: LOVENOX SUBQ SCH ×2 (10:00→20:18)
[2018-05-28] MEDS: PEPCID IV SCH ×2 (10:00→20:18)
[2018-05-28] MEDS: SODIUM CHLORIDE 0.9% INJ SCH ×2 (10:03→20:18)
--- NOTE | 2018-05-28 16:28 | PROGRESS NOTE ---
DATE: 05/28/2018 Bigg has had some facial twitching today and had at least 1 episode of facial twitching progressing to involve neck and shoulders. He has not had any other definite clinically recognized seizure activity noted. Lab showed valproic acid level 79 after recent dose increase. Levetiracetam dose was increased with level pending today. With NG in place for feedings, we can resume carbamazepine. He has tolerated this chronically. When we have the levetiracetam level reported, we might consider adjusting that dose further. Seizure control improved today compared to last few days, but still not complete. Discussed with sister at the bedside. Thanks for asking Neurology to see Mr. Dean. cc: MD Sid Bazan III, Jr, MD MTDD
[2018-05-28] MEDS: VANCOMYCIN IV SCH (17:02)
[2018-05-28] MEDS: NS IV SCH (17:02)
[2018-05-28] MEDS: TEGRETOL NG SCH (17:22)
[2018-05-29] MEDS: KEPPRA 1,000 MG in NS 100 ML IV SCH ×3 (00:04→17:01)
[2018-05-29] MEDS: SOLU-MEDROL IV SCH ×3 (00:05→17:01)
[2018-05-29] MEDS: TEGRETOL NG SCH (00:21)
[2018-05-29] MEDS: DUONEB (A & A) INH SCH ×6 (03:51→23:22)
[2018-05-29] MEDS: ATIVAN IV PRN ×2 (04:12→07:33)
[2018-05-29] MEDS: VANCOMYCIN IV SCH ×2 (04:22→17:01)
[2018-05-29] MEDS: NS IV SCH ×2 (04:22→17:01)
[2018-05-29] MEDS: DEPACON 1,000 MG in NS 50 ML IV SCH ×4 (04:22→22:04)
[2018-05-29 04:52] LABS: HEMATOCRIT 34.5 % (42.0-52.0); HEMOGLOBIN 11.4 g/dL (14.0-18.0); MCH 30.7 PG (27-31); MPV 11.7 FL (7.4-10.4); RBC 3.71 XMIL (4.7-6.1); WBC 8.27 X1000 (4.8-10.8)
[2018-05-29] MEDS: ZOSYN 3.375 GM in NS 50 ML IV SCH ×4 (05:12→23:01)
[2018-05-29 05:18] LABS: AGAP 8; ALB/GLOB RATIO 1.2; ALBUMIN 2.9 g/dL (3.5-5.0); ALKALINE PHOSPHATASE 69 U/L (32-122); BUN 23 mg/dL (8-22); CALCIUM 8.5 mg/dL (8.8-10.2); CHLORIDE 103 mmol/L (98-107); COSMO 290; CREATININE 0.3 mg/dL (0.7-1.2); ESTIMATED GFR > 60; GLUCOSE 151 mg/dL (70-104); GOT 15 U/L (10-34); GPT 12 U/L (10-44); POTASSIUM 4.5 mmol/L (3.5-5.1); SODIUM 142 mmol/L (136-145); TCO2 31 mmol/L (25-35); TOTAL PROTEIN 5.3 g/dL (6.3-8.3)
[2018-05-29 05:38] LABS: ALLEN TEST YES; BE 8.4 mmoll (-3.0-3.0); BLOOD TYPE ARTERIAL; HCO3-(ACT) 31.3 mmoll (20.0-26.0); METHB 1.4 % (0.0-1.5); O2(CT) 15.8 mL/dL (15.0-23.0); O2HB 90.6 % (95.0-99.0); PO2(98.6) 64 mmHg (60-100); SAMPLE BLOOD; SAO2 93.8 % (95.0-100.0); SRATE 15 BPM; THB 12.4 g/dL (11.5-17.4); TVOL 500 mL; pH(98.6) 7.38 (7.35-7.45)
[2018-05-29 05:39] LABS: MODALITY VENTILATOR; PCO2(98.6) 60 mmHg (35-45)
--- NOTE | 2018-05-29 06:52 | Diag Imaging Result Doc PS360 ---
EXAM: CHEST-PORTABLE HISTORY: resp failure TECHNIQUE: Portable chest single view COMPARISON: 05/28/2018 FINDINGS: Endotracheal and nasogastric tubes in good position. There is also a right-sided PICC line. There are infiltrates in the upper left lung. These infiltrates and those in the upper right lung appear slightly more dense on the current study. No cardiomegaly. No pleural effusions identified. IMPRESSION: Mild interval worsening. Electronically signed by Man Benavides 05/29/2018 6:49 AM
[2018-05-29] MEDS: SYNTHROID IV SCH (07:40)
[2018-05-29] MEDS ORDERED: LASIX IV ONE (08:04)
[2018-05-29] MEDS: PEPCID IV SCH ×2 (08:59→20:24)
[2018-05-29] MEDS: SODIUM CHLORIDE 0.9% INJ SCH ×2 (09:00→20:24)
[2018-05-29] MEDS: LOVENOX SUBQ SCH ×2 (09:00→20:24)
[2018-05-29] MEDS: PATIENT'S OWN MED NG SCH ×2 (09:01→17:02)
--- NOTE | 2018-05-29 09:27 | PROGRESS NOTE ---
DATE: 05/29/2018 SUBJECTIVE: The patient is still not communicating. He is on a ventilator. Apparently, he did follow with his eyes yesterday but has continued to have seizures. Tegretol has been restarted. OBJECTIVE: Vital Signs: Blood pressure is 103/59, pulse 92, respirations 15, temperature 98.2 degrees Fahrenheit. HEENT: Normocephalic. Lungs: Have a few rales anteriorly. Heart: Regular rate and rhythm without murmurs, gallops, or friction rubs. Abdomen: Soft. Active bowel sounds. No organomegaly or tenderness. Neurological: Examination unchanged. Diagnostic Data: Chest x-ray shows infiltrates in left upper lobe and the ones in the right upper lobe are slightly more dense. Dr. Cruz ordered some diuretic. Laboratory: Shows a white count of 8270, hemoglobin 11.4. Blood gas shows a pH of 7.38, pCO2 60, PO2 of 64, on 30% FiO2, bicarb 31.3. Electrolytes essentially stable. ASSESSMENT: 1. Respiratory arrest. 2. Cardiac arrest. 3. Pneumonia. 4. Pulmonary fibrosis. 5. Chronic obstructive pulmonary disease. 6. Pulmonary edema. 7. Encephalopathy. 8. Seizures. PLAN: Continue support. Tegretol is being added back today. The patient also has hypothyroidism. His thyroxine level was 5.77. He had been without some of his thyroid medication for a little while. That has been restarted and given IV. Continue support. cc: Sid Guerrero Jr, MD
--- NOTE | 2018-05-29 12:02 | PROGRESS NOTE ---
DATE: 05/29/2018 LOCATION: ICU bed 7. SUBJECTIVE: Bigg had some seizures later in the day yesterday and in the night. The carbamazepine was started this morning. He continues levetiracetam and divalproex, as before. OBJECTIVE: Neurologic: On examination right now, he is supine, intubated, mechanically ventilated, unresponsive. He did not appear to be conscious. Limb tone is symmetric. Lateral eye movements are full with passive head turning. ASSESSMENT AND PLAN: No new suggestions. I hope addition of carbamazepine will bring seizures under much better control. We can follow levels and adjust as needed. We might need EEG later. Discussed seizure management plans again with sister at the bedside this morning. Thanks for asking Neurology to see Bigg. cc: MD Sid Bazan III, Jr, MD MTDD
[2018-05-30] MEDS: KEPPRA 1,000 MG in NS 100 ML IV SCH ×4 (00:01→17:00)
[2018-05-30] MEDS: PATIENT'S OWN MED NG SCH ×4 (00:01→17:00)
[2018-05-30] MEDS: DUONEB (A & A) INH SCH ×6 (03:04→23:33)
[2018-05-30] MEDS: NS IV SCH (04:01)
[2018-05-30] MEDS: DEPACON 1,000 MG in NS 50 ML IV SCH ×4 (04:01→23:45)
[2018-05-30] MEDS: VANCOMYCIN IV SCH (04:01)
[2018-05-30] MEDS: ZOSYN 3.375 GM in NS 50 ML IV SCH ×3 (05:04→17:30)
[2018-05-30 05:10] LABS: HEMATOCRIT 32.3 % (42.0-52.0); HEMOGLOBIN 10.6 g/dL (14.0-18.0); MCH 31.2 PG (27-31); MCHC 32.8 g/dL (33-37); MPV 11.6 FL (7.4-10.4); RBC 3.4 XMIL (4.7-6.1); RDW 14.1 % (11.5-14.5); WBC 6.31 X1000 (4.8-10.8)
[2018-05-30 05:19] LABS: ALLEN TEST YES; BE 11.5 mmoll (-3.0-3.0); BLOOD TYPE ARTERIAL; HCO3-(ACT) 33.8 mmoll (20.0-26.0); METHB 1.7 % (0.0-1.5); O2(CT) 15.1 mL/dL (15.0-23.0); O2HB 93.3 % (95.0-99.0); PO2(98.6) 74 mmHg (60-100); SAMPLE BLOOD; SAO2 96.7 % (95.0-100.0); SRATE 15 BPM; THB 11.5 g/dL (11.5-17.4); TVOL 500 mL; pH(98.6) 7.39 (7.35-7.45)
[2018-05-30 05:23] LABS: MODALITY VENTILATOR; PCO2(98.6) 64 mmHg (35-45)
[2018-05-30 05:37] LABS: AGAP 6; ALB/GLOB RATIO 1.2; ALBUMIN 2.9 g/dL (3.5-5.0); ALKALINE PHOSPHATASE 70 U/L (32-122); BUN 30 mg/dL (8-22); CALCIUM 8.5 mg/dL (8.8-10.2); CHLORIDE 100 mmol/L (98-107); COSMO 289; CREATININE 0.4 mg/dL (0.7-1.2); ESTIMATED GFR > 60; GLUCOSE 164 mg/dL (70-104); GOT 13 U/L (10-34); GPT 11 U/L (10-44); POTASSIUM 4.6 mmol/L (3.5-5.1); SODIUM 140 mmol/L (136-145); TCO2 34 mmol/L (25-35); TOTAL BILIRUBIN 0.15 mg/dL (0.20-1.00); TOTAL PROTEIN 5.4 g/dL (6.3-8.3)
[2018-05-30] MEDS: SYNTHROID IV SCH (06:00)
--- NOTE | 2018-05-30 07:05 | Diag Imaging Result Doc PS360 ---
EXAM: CHEST-PORTABLE 05/30/2018 HISTORY: resp failure TECHNIQUE: AP portable at 0510 COMMENT: There is an endotracheal tube with its tip at thoracic inlet. There is elevation of the angy bilaterally. There is perihilar and apical opacity bilaterally particularly on the left side. This appearance has not changed appreciably since 05/29/2018. IMPRESSION: Apical pulmonary fibrosis/scarring with superimposed pneumonia. Electronically signed by Carlos De Santiago 05/30/2018 7:03 AM
[2018-05-30] MEDS: LOVENOX SUBQ SCH ×3 (07:50→21:40)
[2018-05-30] MEDS: PEPCID IV SCH ×3 (07:50→21:40)
[2018-05-30] MEDS: SOLU-MEDROL IV SCH ×4 (07:50→17:00)
[2018-05-30] MEDS: SODIUM CHLORIDE 0.9% INJ SCH ×3 (07:51→21:41)
--- NOTE | 2018-05-30 09:28 | PROGRESS NOTE ---
DATE: 05/30/2018 SUBJECTIVE: The patient is still not responding much. He has been awake at times. At this time, he is sleeping. His sister is in the room with him and I talked with her as well. Apparently he has had less seizures since the Tegretol has been started. LABORATORY: White count 6310, hemoglobin 10.6. pH on blood gas is 7.39, pCO2 64, PO2 74. Chest x-ray is unchanged, still showing some fibrosis and infiltrates. OBJECTIVE: Vital signs show blood pressure 103/64, respirations 20, pulse 85. He is afebrile with a temperature of 98.6 degrees Fahrenheit. HEENT: He is normocephalic. Lungs have a few rales anteriorly but sound improved from previous auscultation. Heart is regular rate and rhythm without murmurs, gallops, or friction rubs. Abdomen is soft. Active bowel sounds. No organomegaly or tenderness. Neurological exam shows the patient is still unresponsive for the most part, apparently does at times open his eyes and follow a little bit. ASSESSMENT: 1. Respiratory arrest. 2. Cardiac arrest. 3. Encephalopathy. 4. Seizure disorder. 5. Pneumonia. 6. Fibrotic lung disease. PLAN: Continue to support. Patient is critical. cc: Sid Guerrero Jr, MD
--- NOTE | 2018-05-30 09:46 | PROGRESS NOTE ---
DATE: 05/30/2018 Mr. Dean has not had any further seizures noted clinically. Carbamazepine was resumed yesterday at his home dose of 400 mg q.8 hours. He continues IV valproic acid 4 g daily and IV levetiracetam 3 g daily. On exam, Bigg is motionless with symmetric limb tone, no rigidity. There is full lateral eye movement with passive head turning. I hope that seizures are controlled now. We can follow on current regimen and may be able to reduce or stop levetiracetam if seizure control continues. Fewer seizure medicines on board will reduce the obstacles to his waking up. Thanks for asking neurology to see Bigg. I discussed briefly with sister at the bedside while she was on phone with the mother this morning. cc: MD Sid Bazan III, Jr, MD MTDD
[2018-05-30] MEDS: VANCOMYCIN 1,750 MG in NS 500 ML IV SCH (18:41)
[2018-05-31] MEDS: ZOSYN 3.375 GM in NS 50 ML IV SCH ×4 (00:49→17:00)
[2018-05-31] MEDS: PATIENT'S OWN MED NG SCH ×3 (00:50→16:46)
[2018-05-31] MEDS: SOLU-MEDROL IV SCH ×3 (00:50→16:47)
[2018-05-31] MEDS: KEPPRA 1,000 MG in NS 100 ML IV SCH ×2 (00:50→08:00)
[2018-05-31] MEDS: DUONEB (A & A) INH SCH ×6 (03:24→23:51)
[2018-05-31] MEDS: DEPACON 1,000 MG in NS 50 ML IV SCH ×4 (05:11→22:51)
[2018-05-31] MEDS: VANCOMYCIN 1,750 MG in NS 500 ML IV SCH ×2 (05:11→18:02)
[2018-05-31 05:33] LABS: HEMATOCRIT 31.7 % (42.0-52.0); HEMOGLOBIN 10.5 g/dL (14.0-18.0); MCH 31.3 PG (27-31); MCHC 33.1 g/dL (33-37); MCV 94.6 FL (81-99); MPV 12.1 FL (7.4-10.4); RBC 3.35 XMIL (4.7-6.1); RDW 13.8 % (11.5-14.5); WBC 8.38 X1000 (4.8-10.8)
[2018-05-31 05:41] LABS: ALLEN TEST YES; BE 11.9 mmoll (-3.0-3.0); BLOOD TYPE ARTERIAL; HCO3-(ACT) 34.2 mmoll (20.0-26.0); METHB 1.6 % (0.0-1.5); O2(CT) 12.5 mL/dL (15.0-23.0); O2HB 93.6 % (95.0-99.0); PO2(98.6) 75 mmHg (60-100); SAMPLE BLOOD; SAO2 96.7 % (95.0-100.0); SRATE 15 BPM; THB 9.4 g/dL (11.5-17.4); TVOL 500 mL; pH(98.6) 7.39 (7.35-7.45)
[2018-05-31 05:42] LABS: MODALITY VENTILATOR
[2018-05-31 05:43] LABS: PCO2(98.6) 64 mmHg (35-45)
[2018-05-31 06:05] LABS: AGAP 6; ALB/GLOB RATIO 1.1; ALBUMIN 2.9 g/dL (3.5-5.0); ALKALINE PHOSPHATASE 77 U/L (32-122); BUN 26 mg/dL (8-22); CALCIUM 8.5 mg/dL (8.8-10.2); CHLORIDE 99 mmol/L (98-107); COSMO 283; CREATININE 0.4 mg/dL (0.7-1.2); ESTIMATED GFR > 60; GLUCOSE 117 mg/dL (70-104); GOT 13 U/L (10-34); GPT 9 U/L (10-44); POTASSIUM 4.6 mmol/L (3.5-5.1); SODIUM 139 mmol/L (136-145); TCO2 34 mmol/L (25-35); TOTAL BILIRUBIN 0.15 mg/dL (0.20-1.00); TOTAL PROTEIN 5.5 g/dL (6.3-8.3)
[2018-05-31] MEDS: SYNTHROID IV SCH (06:20)
[2018-05-31] MEDS: ATIVAN IV PRN (07:15)
--- NOTE | 2018-05-31 07:33 | Diag Imaging Result Doc PS360 ---
EXAM: CHEST-PORTABLE INDICATION: resp failure TECHNIQUE: One view COMPARISON: 05/30/2018 FINDINGS: Support tubes and lines are in stable positions. Perihilar and biapical opacities as well as a small focal opacity at the left lung base have not changed. No new consolidation is identified. Cardiac silhouette is stable. IMPRESSION: Stable chest. Electronically signed by Leon Vicente 05/31/2018 7:31 AM
[2018-05-31] MEDS: PEPCID IV SCH ×2 (08:00→21:07)
[2018-05-31] MEDS: LOVENOX SUBQ SCH ×2 (08:00→21:07)
[2018-05-31] MEDS: SODIUM CHLORIDE 0.9% INJ SCH ×2 (08:01→21:07)
--- NOTE | 2018-05-31 09:20 | PROGRESS NOTE ---
DATE: 05/31/2018 SUBJECTIVE: Bigg did not have a clinically recognized seizure for more than 24 hours, possibly almost 48 hours, and then he had a 5 minute episode of bilateral face and neck twitching early this morning. He continues levetiracetam 1000 mg IV q.8 hours, carbamazepine 400 mg q.8 hours per NG, valproic acid 1000 mg IV q.6 hours. He has lorazepam 2 mg p.r.n. with dose given this morning, first dose in about 48 hours. Last levels were levetiracetam 27.9 on current dose and valproic acid 79.1 on current dose 4 days ago. Carbamazepine level was 5.9 on admission, and his current carbamazepine dose is the same as the admission dose. ASSESSMENT: I am going to order recheck on all 3 levels. I am reluctant to add a fourth drug. Will increase levetiracetam dose (kidney function is good, creatinine 0.4) and follow. Discussed concern for sedation due to seizure medications with sister. cc: MD Sid Bazan III, Jr, MD MTDD
--- NOTE | 2018-05-31 13:13 | PROGRESS NOTE ---
DATE: 05/31/2018 SUBJECTIVE: The patient is still not responsive. He is on a ventilator. Did seem to have a seizure earlier this morning. Dr. Rader is checking serum levels of his anticonvulsants. He had increased his Keppra dosage. OBJECTIVE: Vital Signs: Blood pressure is 91/55, respirations 16, pulse 88. He is afebrile. HEENT: He is normocephalic. At this time, his eyes are closed. He has not been following with his eyes the last day or so. At one time, he did seem to with his mother in the room a couple of days ago. Lungs: Have a few rales anteriorly. Chest x-ray is stable with perihilar and biapical opacities. There is a small focal opacity in the left lung bases. Heart: Regular rate and rhythm without murmurs, gallops, friction rubs. Abdomen: Soft. Active bowel sounds. No organomegaly or tenderness. Neurological: The patient is comatose. ASSESSMENT: 1. Respiratory arrest. 2. Cardiac arrest. 3. Encephalopathy. 4. Seizures. PLAN: Continue to support. Sister was in the room. She wondered about some physical therapy for him, which we will initiate some passive physical therapy. cc: Sid Guerrero Jr, MD
[2018-05-31] MEDS: KEPPRA 1,500 MG in NS 100 ML IV SCH (16:46)
[2018-06-01] MEDS: KEPPRA 1,500 MG in NS 100 ML IV SCH ×4 (00:01→22:59)
[2018-06-01] MEDS: SOLU-MEDROL IV SCH ×4 (00:20→16:33)
[2018-06-01] MEDS: PATIENT'S OWN MED NG SCH ×3 (00:20→16:11)
[2018-06-01] MEDS: ZOSYN 3.375 GM in NS 50 ML IV SCH ×5 (00:20→22:59)
[2018-06-01] MEDS: DUONEB (A & A) INH SCH ×6 (03:23→23:20)
[2018-06-01] MEDS: DEPACON 1,000 MG in NS 50 ML IV SCH ×4 (04:36→22:10)
[2018-06-01 05:15] LABS: ALLEN TEST YES; BE 11.7 mmoll (-3.0-3.0); BLOOD TYPE ARTERIAL; METHB 1.3 % (0.0-1.5); O2(CT) 14.1 mL/dL (15.0-23.0); O2HB 93.9 % (95.0-99.0); PO2(98.6) 75 mmHg (60-100); SAMPLE BLOOD; SAO2 97.1 % (95.0-100.0); SRATE 15 BPM; THB 10.6 g/dL (11.5-17.4); TVOL 500 mL; pH(98.6) 7.38 (7.35-7.45)
[2018-06-01 05:17] LABS: MODALITY VENTILATOR; PCO2(98.6) 66 mmHg (35-45)
[2018-06-01 06:20] LABS: HEMATOCRIT 31.2 % (42.0-52.0); HEMOGLOBIN 10.2 g/dL (14.0-18.0); MCH 30.5 PG (27-31); MCHC 32.7 g/dL (33-37); MCV 93.4 FL (81-99); MPV 12.1 FL (7.4-10.4); RBC 3.34 XMIL (4.7-6.1); RDW 13.8 % (11.5-14.5); WBC 9.57 X1000 (4.8-10.8)
[2018-06-01] MEDS: VANCOMYCIN 1,750 MG in NS 500 ML IV SCH ×2 (06:32→17:55)
[2018-06-01] MEDS: SYNTHROID IV SCH (06:32)
[2018-06-01 07:09] LABS: AGAP 6; ALB/GLOB RATIO 1.1; ALBUMIN 2.8 g/dL (3.5-5.0); ALKALINE PHOSPHATASE 80 U/L (32-122); BUN 23 mg/dL (8-22); CHLORIDE 98 mmol/L (98-107); COSMO 282; CREATININE 0.3 mg/dL (0.7-1.2); ESTIMATED GFR > 60; GLUCOSE 109 mg/dL (70-104); GOT 15 U/L (10-34); GPT 8 U/L (10-44); POTASSIUM 4.7 mmol/L (3.5-5.1); SODIUM 139 mmol/L (136-145); TCO2 35 mmol/L (25-35); TOTAL BILIRUBIN 0.15 mg/dL (0.20-1.00); TOTAL PROTEIN 5.4 g/dL (6.3-8.3)
--- NOTE | 2018-06-01 07:20 | Diag Imaging Result Doc PS360 ---
EXAM: CHEST-PORTABLE 06/01/2018 HISTORY: resp failure TECHNIQUE: AP portable at 0545 COMMENT: There is an endotracheal tube with its tip slightly above the thoracic inlet and an NG tube which passes into the fundus of the stomach. There is bibasilar subsegmental atelectasis. There are coarse opacities in the perihilar and upper lung zones which were also present on the previous studies. There has been no significant change since 05/31/2018. IMPRESSION: Stable chest. Electronically signed by Carlos De Santiago 06/01/2018 7:17 AM
[2018-06-01] MEDS: ATIVAN IV PRN ×2 (08:29→16:33)
[2018-06-01] MEDS: PEPCID IV SCH ×2 (08:38→20:05)
[2018-06-01] MEDS: SODIUM CHLORIDE 0.9% INJ SCH ×2 (08:38→20:05)
[2018-06-01] MEDS: LOVENOX SUBQ SCH ×2 (08:38→20:05)
[2018-06-02] MEDS: ZOSYN 3.375 GM in NS 50 ML IV SCH ×16 (00:27→21:10)
[2018-06-02] MEDS: SOLU-MEDROL IV SCH ×3 (00:28→17:31)
[2018-06-02] MEDS: PATIENT'S OWN MED NG SCH ×3 (00:29→17:30)
[2018-06-02] MEDS: DUONEB (A & A) INH SCH ×6 (03:34→23:15)
[2018-06-02] MEDS: DEPACON 1,000 MG in NS 50 ML IV SCH ×4 (04:08→22:07)
[2018-06-02 05:26] LABS: ALLEN TEST YES; BE 10.5 mmoll (-3.0-3.0); BLOOD TYPE ARTERIAL; HCO3-(ACT) 33.1 mmoll (20.0-26.0); METHB 1.3 % (0.0-1.5); O2(CT) 15.7 mL/dL (15.0-23.0); PO2(98.6) 155 mmHg (60-100); SAMPLE BLOOD; SAO2 100.3 % (95.0-100.0); SRATE 15 BPM; THB 11.3 g/dL (11.5-17.4); TVOL 500 mL; pH(98.6) 7.45 (7.35-7.45)
[2018-06-02 05:29] LABS: MODALITY VENTILATOR; PCO2(98.6) 52 mmHg (35-45)
[2018-06-02] MEDS: VANCOMYCIN 1,750 MG in NS 500 ML IV SCH (05:30)
[2018-06-02] MEDS: SYNTHROID IV SCH ×2 (05:36→06:17)
[2018-06-02 06:28] LABS: HEMATOCRIT 30.9 % (42.0-52.0); HEMOGLOBIN 10.2 g/dL (14.0-18.0); MCH 30.7 PG (27-31); MCV 93.1 FL (81-99); MPV 12.1 FL (7.4-10.4); RBC 3.32 XMIL (4.7-6.1); RDW 13.7 % (11.5-14.5); WBC 10.15 X1000 (4.8-10.8)
[2018-06-02 06:53] LABS: AGAP 7; ALB/GLOB RATIO 1.1; ALBUMIN 2.9 g/dL (3.5-5.0); ALKALINE PHOSPHATASE 93 U/L (32-122); BUN 19 mg/dL (8-22); CALCIUM 8.8 mg/dL (8.8-10.2); CHLORIDE 97 mmol/L (98-107); COSMO 278; CREATININE 0.3 mg/dL (0.7-1.2); ESTIMATED GFR > 60; GLUCOSE 95 mg/dL (70-104); GOT 14 U/L (10-34); GPT 8 U/L (10-44); POTASSIUM 4.3 mmol/L (3.5-5.1); SODIUM 138 mmol/L (136-145); TCO2 34 mmol/L (25-35); TOTAL BILIRUBIN 0.18 mg/dL (0.20-1.00); TOTAL PROTEIN 5.5 g/dL (6.3-8.3)
[2018-06-02] MEDS: KEPPRA 1,500 MG in NS 100 ML IV SCH ×3 (07:36→23:22)
--- NOTE | 2018-06-02 07:36 | Diag Imaging Result Doc PS360 ---
EXAM: CHEST-PORTABLE 06/02/2018 HISTORY: resp failure TECHNIQUE: AP portable at 0511 COMMENT: There is an endotracheal tube with its tip in the thoracic inlet and an NG tube which passes below the diaphragm. There is hyperinflation of the lungs. There is elevation of the angy and apparent fibrotic changes in the mid and upper lung zones. Compared to 06/01/2018 there is increased blunting of the left costophrenic angle. Compared to 05/31/2018 there may be slight improvement in opacity in the left upper lobe. IMPRESSION: Pulmonary fibrotic changes in the upper lung zones with possible superimposed pneumonia and/or pulmonary edema. This is apparently improved slightly since 05/31/2018. Minimal left pleural effusion. Left lower lobe atelectasis. Electronically signed by Carlos De Santiago 06/02/2018 7:34 AM
[2018-06-02] MEDS: SODIUM CHLORIDE 0.9% INJ SCH ×2 (09:12→21:10)
[2018-06-02] MEDS: PEPCID IV SCH ×2 (09:12→21:11)
[2018-06-02] MEDS: LOVENOX SUBQ SCH ×2 (09:12→21:11)
[2018-06-02] MEDS: ATIVAN IV PRN ×2 (09:55→19:04)
--- NOTE | 2018-06-02 15:25 | PROGRESS NOTE ---
DATE: 06/01/2018 SUBJECTIVE: The patient is seen examined in the morning. He is stable. Sister in the room with him in ICU. He had had a 2nd seizure-like activity with raising of the eyebrows for about 13 minutes that was reed polisher than the day before, but longer lasting. He remains on [address] Rader. OBJECTIVE: Vital Signs: Afebrile, pulse 88, blood pressure 102/64, patient remains on ventilatory support per Dr. Cruz/Dr. Horton. Intake and output: 3210 in, 2750 out, stooling once daily. DIAGNOSTIC STUDIES: White count 9.5, hemoglobin 10.2, platelets 181,000. Sodium 139, potassium 4.7, BUN 23, creatinine 0.3. LFTs normal. Albumin 2.8. ABG: This is on ventilatory support, assist-control rate 15, FiO2 of 30%, pH 7.38, pCO2 of 66, PO2 of 75, HCO3 of 34, O2 saturation 97. ASSESSMENT: 1. Respiratory arrest and cardiac arrest. 2. Anoxic encephalopathy. 3. Seizure disorder. 4. Hypothyroidism. PLAN: Patient on anticonvulsants and managed by Dr. Rader in this regard. He is on the Keppra, Tegretol, and Ativan. He remains on his home doses of Synthroid. He is on Zosyn and vancomycin per Dr. Horton and Dr. Cruz and continues on ventilatory support. Continue present supportive measures with no change in anticonvulsants currently. cc: MD Sid Fitzpatrick Jr, MD
--- NOTE | 2018-06-02 15:26 | PROGRESS NOTE ---
DATE: 06/02/2018 SUBJECTIVE: The patient remains in the ICU on ventilatory support. Sisters in attendance again today. He had another episode of seizure-like activity with movement of the musculature of his left neck and eyebrow areas with stimulation after bath this morning. He received some Ativan and has been sedated with that. OBJECTIVE: Vital Signs: Afebrile. Pulse 87, respirations 22, blood pressure 91/52. Patient remains on ventilatory support without change 30% FiO2. Cardiovascular: RRR. Lungs: Rhonchi bilaterally, left slightly greater than right. Abdomen: Nondistended. Extremities: No edema. Neurologic: Not arousable currently. LABORATORY DATA: Shows ABG with pH 7.45, pCO2 of 52, PO2 of 155, O2 saturation 100.3. White count 10, hemoglobin 10.2, platelets 186,000. Sodium 138, potassium 4.3, chloride 97, CO2 of 34, BUN 19, creatinine 0.3, glucose 95. Chest x-ray today reveals pulmonary fibrotic changes in the upper lung zones, possible superimposed pneumonia or pulmonary edema and slightly improved since 05/31. Minimal left pleural effusion and left lower lobe atelectasis. ASSESSMENT: 1. Respiratory and cardiac arrest. 2. Anoxic encephalopathy. 3. Seizure disorder. 4. Pneumonia. PLAN: Continue anticonvulsants and supportive measures. Trach discussions going on between Pulmonology and the sister. cc: MD Sid Fitzpatrick Jr, MD
[2018-06-02] MEDS: VANCOMYCIN 1,900 MG in NS 500 ML IV SCH (18:12)
[2018-06-03] MEDS: SOLU-MEDROL IV SCH ×3 (01:28→16:34)
[2018-06-03] MEDS: ZOSYN 3.375 GM in NS 50 ML IV SCH ×4 (01:28→19:53)
[2018-06-03] MEDS: PATIENT'S OWN MED NG SCH ×6 (01:29→22:46)
[2018-06-03] MEDS: DUONEB (A & A) INH SCH ×6 (03:13→23:30)
[2018-06-03] MEDS: DEPACON 1,000 MG in NS 50 ML IV SCH ×4 (04:16→22:47)
[2018-06-03 04:58] LABS: ALLEN TEST YES; BE 14.1 mmoll (-3.0-3.0); BLOOD TYPE ARTERIAL; HCO3-(ACT) 35.9 mmoll (20.0-26.0); METHB 1.3 % (0.0-1.5); O2(CT) 12.7 mL/dL (15.0-23.0); O2HB 95.4 % (95.0-99.0); PO2(98.6) 72 mmHg (60-100); SAMPLE BLOOD; SRATE 15 BPM; THB 9.4 g/dL (11.5-17.4); TVOL 500 mL; pH(98.6) 7.39 (7.35-7.45)
[2018-06-03 05:09] LABS: MODALITY VENTILATOR; PCO2(98.6) 68 mmHg (35-45)
[2018-06-03] MEDS: VANCOMYCIN 1,900 MG in NS 500 ML IV SCH ×2 (05:45→18:04)
[2018-06-03] MEDS: SODIUM CHLORIDE 0.9% INJ PRN (05:46)
[2018-06-03] MEDS: SYNTHROID IV SCH (06:05)
[2018-06-03 06:44] LABS: HEMATOCRIT 29.5 % (42.0-52.0); HEMOGLOBIN 9.8 g/dL (14.0-18.0); MCH 31.4 PG (27-31); MCHC 33.2 g/dL (33-37); MCV 94.6 FL (81-99); MPV 11.7 FL (7.4-10.4); RBC 3.12 XMIL (4.7-6.1); RDW 13.9 % (11.5-14.5); WBC 9.18 X1000 (4.8-10.8)
--- NOTE | 2018-06-03 06:52 | Diag Imaging Result Doc PS360 ---
EXAM: CHEST-PORTABLE HISTORY: resp failure TECHNIQUE: Portable chest single view COMPARISON: 06/02/2018 FINDINGS: No change in the endotracheal tube, nasogastric tube, or right-sided PICC line. The lungs are well expanded. There are infiltrates bilaterally most pronounced in the upper lungs. A portion of these may be due to scarring. No cardiomegaly. Questionable trace left pleural fluid. IMPRESSION: No interval improvement. Electronically signed by Man Benavides 06/03/2018 6:49 AM
[2018-06-03 07:29] LABS: AGAP 10; ALBUMIN 2.6 g/dL (3.5-5.0); ALKALINE PHOSPHATASE 99 U/L (32-122); BUN 17 mg/dL (8-22); CHLORIDE 98 mmol/L (98-107); COSMO 283; CREATININE 0.3 mg/dL (0.7-1.2); ESTIMATED GFR > 60; GLUCOSE 98 mg/dL (70-104); GOT 13 U/L (10-34); GPT 7 U/L (10-44); POTASSIUM 3.8 mmol/L (3.5-5.1); SODIUM 141 mmol/L (136-145); TCO2 33 mmol/L (25-35); TOTAL BILIRUBIN < 0.15 mg/dL (0.20-1.00); TOTAL PROTEIN 5.2 g/dL (6.3-8.3)
[2018-06-03] MEDS: KEPPRA 1,500 MG in NS 100 ML IV SCH ×3 (08:19→23:25)
[2018-06-03] MEDS: PEPCID IV SCH ×2 (08:20→20:04)
[2018-06-03] MEDS: SODIUM CHLORIDE 0.9% INJ SCH ×2 (08:20→20:05)
[2018-06-03] MEDS: LOVENOX SUBQ SCH ×2 (08:21→20:05)
--- NOTE | 2018-06-03 08:39 | PROGRESS NOTE ---
DATE: 06/03/2018 SUBJECTIVE: The patient is unresponsive on the ventilator. He has had a couple of more seizures over the weekend. His anticonvulsant serum levels are all therapeutic. OBJECTIVE: Blood pressure is 103/60, respirations 16, pulse 83, and temperature 97.8 degrees Fahrenheit.HEENT: Normocephalic. He is just not responsive. Lungs: Clear to auscultation and percussion without rhonchi, rales, or wheezes. Heart: Regular rate and rhythm without murmurs, gallops, or friction rubs. Abdomen: Soft. Active bowel sounds. No organomegaly or tenderness. Neurological: The patient is unresponsive. LABORATORY: White count 9180, hemoglobin 9.8, and hematocrit 29.5. Blood gas shows a pH of 7.39, pCO2 68, PO2 of 72 on 30% FiO2. Electrolytes are stable. Albumin 2.6. Total protein 5.2. ASSESSMENT: 1. Respiratory arrest. 2. Cardiac arrest. 3. Encephalopathy. 4. Pulmonary fibrosis. 5. Seizure disorder. 6. No family members in yet this morning. PLAN: We will continue support. The patient also has pneumonia and other diagnosis. Continue support. cc: Sid Guerrero Jr, MD
--- NOTE | 2018-06-03 08:48 | PROVIDER PROGRESS NOTE ---
Progress Note Please see written note for Details. Mr. Pride weaning trials keeps getting hindered with seizures episodes. Also even when seizures are controlled, we are not sure if he has enough mental capacity to protect airways. I discussed with sister the options of trach and she was interested in learning about comfort care and hospice considering possible significant anoxic encephalopathy. Now she is discussing with her mother.
--- NOTE | 2018-06-03 14:07 | PROGRESS NOTE ---
DATE: 06/03/2018 SUBJECTIVE: The patient has had about 3 witnessed seizure-like events over the weekend. Last event was yesterday morning and there have not been any reported since that time. Reports are that he has facial and neck twitching with jerking of the upper extremities lasting from 6 to 13 minutes. Sister at bedside says he seems more awake and alert today seems to be having a better day today or at least this morning. She believes that he tracks her across the room. Afebrile, blood pressure 104-114/60s-70s, pulse 80s to 90s, respirations 22, he is on the ventilator. Mr. Dean is supine in bed awake with eyes open. I did see him shift his gaze from the right side to the left side in response to his sister. He grimaces to noxious stimuli in the extremities but does not localize. Does not follow commands but the patient is deaf and it is difficult to assess. Pupils are equal 3.5 mm each eye and reactive. Gaze is conjugate. He appeared to have full lateral eye movements during my time at the bedside. He does not blink to threat consistently. Face appears to be symmetric with equal grimace. No clonus, plantar response is silent. MEDICATIONS: Levetiracetam 1500 mg IV q.8 hours, carbamazepine 400 mg per NG tube q.8 hours, valproic acid 1000 mg IV q.6 hours and he is also getting p.r.n. lorazepam 2 mg for seizure activity. Levetiracetam level on the 12th was 17.5 which is low therapeutic. Carbamazepine level on the was 7.1, valproic acid level on 05/31 is 73.7 all in therapeutic range. LABS: Include BUN of 17 with a creatinine of 0.3, AST and ALT are not elevated. ASSESSMENT AND PLAN: 1. Status post respiratory and cardiac arrest, status post cooling protocol. He was rewarmed to normal body temperature on 05/21/2018. 2. 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 Few reported seizure events over the weekend, none since yesterday morning. He seems more awake this morning than what I have seen in the past which is good. I am going to increase his carbamazepine dose for now. There seems to be more room to go up on the levetiracetam however the level does not seem to be consistent with the high dosage that he is already getting. I am going to go ahead and recheck that level now. cc: MD Sid Larsen Jr, MD MTDD
[2018-06-03] MEDS ORDERED: PATIENT'S OWN MED NG SCH (22:00)
[2018-06-04] MEDS: SOLU-MEDROL IV SCH ×3 (01:00→16:54)
[2018-06-04] MEDS: PATIENT'S OWN MED NG SCH ×4 (01:04→21:10)
[2018-06-04] MEDS: ZOSYN 3.375 GM in NS 50 ML IV SCH ×4 (01:30→20:08)
[2018-06-04] MEDS: DUONEB (A & A) INH SCH ×6 (03:01→23:30)
[2018-06-04] MEDS: DEPACON 1,000 MG in NS 50 ML IV SCH ×4 (04:22→22:03)
[2018-06-04 05:02] LABS: ALLEN TEST YES; BE 11.2 mmoll (-3.0-3.0); BLOOD TYPE ARTERIAL; HCO3-(ACT) 33.7 mmoll (20.0-26.0); METHB 1.4 % (0.0-1.5); O2(CT) 14.3 mL/dL (15.0-23.0); O2HB 96.4 % (95.0-99.0); PO2(98.6) 150 mmHg (60-100); SAMPLE BLOOD; SAO2 99.7 % (95.0-100.0); SRATE 15 BPM; THB 10.3 g/dL (11.5-17.4); TVOL 500 mL; pH(98.6) 7.45 (7.35-7.45)
[2018-06-04 05:03] LABS: MODALITY VENTILATOR; PCO2(98.6) 53 mmHg (35-45)
[2018-06-04] MEDS: VANCOMYCIN 1,900 MG in NS 500 ML IV SCH ×2 (05:04→18:00)
[2018-06-04 05:08] LABS: HEMATOCRIT 30.8 % (42.0-52.0); HEMOGLOBIN 10.3 g/dL (14.0-18.0); MCH 30.9 PG (27-31); MCHC 33.4 g/dL (33-37); MCV 92.5 FL (81-99); MPV 12.1 FL (7.4-10.4); RBC 3.33 XMIL (4.7-6.1); RDW 13.8 % (11.5-14.5); WBC 6.85 X1000 (4.8-10.8)
[2018-06-04] MEDS: SYNTHROID IV SCH (06:08)
[2018-06-04] MEDS: SODIUM CHLORIDE 0.9% INJ PRN (06:09)
[2018-06-04 06:27] LABS: AGAP 6; ALB/GLOB RATIO 0.9; ALBUMIN 2.7 g/dL (3.5-5.0); ALKALINE PHOSPHATASE 111 U/L (32-122); BUN 16 mg/dL (8-22); CALCIUM 8.6 mg/dL (8.8-10.2); CHLORIDE 98 mmol/L (98-107); COSMO 279; CREATININE 0.4 mg/dL (0.7-1.2); ESTIMATED GFR > 60; GLUCOSE 135 mg/dL (70-104); GOT 13 U/L (10-34); GPT 7 U/L (10-44); POTASSIUM 4.4 mmol/L (3.5-5.1); SODIUM 138 mmol/L (136-145); TCO2 34 mmol/L (25-35); TOTAL BILIRUBIN 0.17 mg/dL (0.20-1.00); TOTAL PROTEIN 5.6 g/dL (6.3-8.3)
--- NOTE | 2018-06-04 07:33 | Diag Imaging Result Doc PS360 ---
CHEST-PORTABLE - 06/04/2018 INDICATION: resp failure COMPARISON: 06/03/2018 FINDINGS: Support lines and tubes are stable. Stable ill-defined infiltrates in the lung apices and lung bases bilaterally. No new infiltrates. No pneumothorax or significant pleural effusion. Heart size remains normal. IMPRESSION: No change from prior. Electronically signed by Shashank Hall 06/04/2018 7:30 AM
[2018-06-04] MEDS: KEPPRA 1,500 MG in NS 100 ML IV SCH ×3 (07:41→23:01)
[2018-06-04] MEDS: LOVENOX SUBQ SCH ×2 (09:20→20:08)
[2018-06-04] MEDS: PEPCID IV SCH ×2 (09:20→20:08)
[2018-06-04] MEDS: SODIUM CHLORIDE 0.9% INJ SCH ×2 (09:21→20:08)
--- NOTE | 2018-06-04 09:37 | PROGRESS NOTE ---
DATE: 06/04/2018 SUBJECTIVE: The patient is still not responsive, he is opening his eyes. He was off the ventilator for a few hours last night and had to be placed back on. Weaning attempts will be done again. DIAGNOSTIC DATA: Blood gas showed a pH of 7.45, a pCO2 of 53, a pO2 of 150 on 30% FiO2. Chemistries were essentially stable. OBJECTIVE: Vitals: Blood pressure 105/68, respirations 16, pulse 69, temperature 97.5 degrees Fahrenheit. HEENT: He is normocephalic. Eyes are open but does not seem to be following. Lungs: The lungs have few rales anteriorly. Chest x-ray shows no change, does have fibrosis. Heart: Regular rate and rhythm without murmurs, gallops, or friction rubs. Abdomen: Soft. Active bowel sounds. No organomegaly or tenderness. Neurologic: No seizures were noted in the last 24 hours. The patient is not responsive at this time. ASSESSMENT: 1. Respiratory arrest. 2. Cardiac arrest. 3. Chronic obstructive pulmonary disease/pulmonary fibrosis. 4. Encephalopathy. 5. Seizure disorder. 6. Pneumonia. PLAN: Continue to support. Continue to wean per Dr. Cruz. cc: Sid Guerrero Jr, MD
[2018-06-04 11:13] LABS: ALLEN TEST YES; BLOOD TYPE ARTERIAL; HCO3-(ACT) 33.4 mmoll (20.0-26.0); METHB 1.4 % (0.0-1.5); O2(CT) 14.5 mL/dL (15.0-23.0); O2HB 92.9 % (95.0-99.0); PO2(98.6) 68 mmHg (60-100); SAMPLE BLOOD; SAO2 96.2 % (95.0-100.0); THB 11.1 g/dL (11.5-17.4)
[2018-06-04 11:16] LABS: MODALITY VENTILATOR
[2018-06-04 11:21] LABS: PCO2(98.6) 61 mmHg (35-45)
--- NOTE | 2018-06-04 11:26 | PROGRESS NOTE ---
DATE: 06/04/2018 Bigg had some seizures over the weekend. He has not had clinically recognized seizure in more than 24 hours now. Sister at the bedside reports he was much more alert for part of the day yesterday. He has seemed more sleepy this morning, but has not had seizure apparent. We had increased his seizure medicine doses late last week. Repeat levels were obtained. Levetiracetam level 17 on higher dose seemed inconsistent with level 27 on lower dose earlier in the week. Dr. Davalos ordered repeat levetiracetam level yesterday, and that report is pending. No new suggestion from Neurology today. We will check on the levetiracetam level when reported, follow clinically for seizures now. Later, may need to consider repeating his EEG. Thanks for asking Neurology to see Bigg. cc: MD Sid Bazan III, Jr, MD
[2018-06-04] MEDS: CALMOSEPTINE OINTMENT TOP PRN (15:00)
[2018-06-05] MEDS: SOLU-MEDROL IV SCH ×3 (00:10→16:39)
[2018-06-05] MEDS: ZOSYN 3.375 GM in NS 50 ML IV SCH ×4 (01:06→19:44)
[2018-06-05] MEDS: DUONEB (A & A) INH SCH ×6 (03:30→23:30)
[2018-06-05] MEDS: DEPACON 1,000 MG in NS 50 ML IV SCH ×4 (04:06→21:59)
[2018-06-05 04:55] LABS: ALLEN TEST YES; BE 11.4 mmoll (-3.0-3.0); BLOOD TYPE ARTERIAL; HCO3-(ACT) 33.8 mmoll (20.0-26.0); METHB 1.4 % (0.0-1.5); O2(CT) 16.1 mL/dL (15.0-23.0); O2HB 96.5 % (95.0-99.0); PO2(98.6) 174 mmHg (60-100); SAMPLE BLOOD; SAO2 99.7 % (95.0-100.0); THB 11.6 g/dL (11.5-17.4)
[2018-06-05 04:57] LABS: MODALITY COOL AEROSOL
[2018-06-05 04:58] LABS: PCO2(98.6) 62 mmHg (35-45)
[2018-06-05] MEDS: VANCOMYCIN 1,900 MG in NS 500 ML IV SCH ×2 (05:01→19:30)
[2018-06-05] MEDS: PATIENT'S OWN MED NG SCH ×3 (05:02→21:00)
[2018-06-05 06:03] LABS: HEMOGLOBIN 11.1 g/dL (14.0-18.0); MCH 31.6 PG (27-31); MCHC 33.6 g/dL (33-37); MPV 12.3 FL (7.4-10.4); RBC 3.51 XMIL (4.7-6.1); WBC 7.93 X1000 (4.8-10.8)
[2018-06-05] MEDS: SYNTHROID IV SCH (06:04)
[2018-06-05] MEDS: SODIUM CHLORIDE 0.9% INJ PRN (06:05)
[2018-06-05 06:18] LABS: AGAP 7; ALB/GLOB RATIO 0.9; ALBUMIN 2.9 g/dL (3.5-5.0); ALKALINE PHOSPHATASE 128 U/L (32-122); BUN 15 mg/dL (8-22); CALCIUM 8.8 mg/dL (8.8-10.2); CHLORIDE 97 mmol/L (98-107); COSMO 276; CREATININE 0.4 mg/dL (0.7-1.2); ESTIMATED GFR > 60; GLUCOSE 89 mg/dL (70-104); GOT 14 U/L (10-34); GPT 7 U/L (10-44); SODIUM 138 mmol/L (136-145); TCO2 34 mmol/L (25-35); TOTAL BILIRUBIN 0.16 mg/dL (0.20-1.00)
--- NOTE | 2018-06-05 07:28 | Diag Imaging Result Doc PS360 ---
CHEST-PORTABLE - 06/05/2018 INDICATION: resp failure COMPARISON: 06/04/2018 FINDINGS: The endotracheal tube is no longer present. Stable nasogastric tube and right PICC line. Stable hyperexpanded lungs suggesting COPD. Stable ill-defined background interstitial infiltrate suggesting pulmonary edema. Heart size remains normal. IMPRESSION: Endotracheal tube removed. No other change from prior. Electronically signed by Shashank Hall 06/05/2018 7:26 AM
[2018-06-05] MEDS: KEPPRA 1,500 MG in NS 100 ML IV SCH ×3 (07:51→23:23)
--- NOTE | 2018-06-05 08:14 | PROGRESS NOTE ---
DATE: 06/05/2018 SUBJECTIVE: The patient is still not responsive. He will open his eyes. I tried to check him and he opened his eyes, but responded in no other way at this time. The patient has been extubated. OBJECTIVE: Vital Signs: Blood pressure 114/73, respirations 21, temperature 98.8 degrees Fahrenheit, pulse 96 and regular. HEENT: Normocephalic. EOMS intact. PERRLA. Throat clear. Lungs: Have a few rales and rhonchi anteriorly. Heart: Regular rate and rhythm without murmurs, gallops, friction rubs. Abdomen: Soft with active bowel sounds. No organomegaly or tenderness. Neurological exam: Patient is still minimally responsive. LABS: Blood gas shows a pH of 7.40, pCO2 62, PO2 of 174 on 40% FiO2. White count 7930, hemoglobin 11.1, hematocrit 33.0. Potassium 4.0, sodium 138, chloride 97. BUN 15, creatinine 0.4. Albumin is up a little bit to 2.9. Total protein is up a little bit to 6.0. ASSESSMENT: 1. Respiratory arrest. 2. Cardiac arrest. 3. Encephalopathy. 4. Pneumonia. 5. Nutritional problems. 6. Seizures, which seem to be under better control. No family members here at this time. PLAN: We will continue to support. cc: Sid Guerrero Jr, MD
[2018-06-05] MEDS: PEPCID IV SCH ×2 (09:41→20:01)
[2018-06-05] MEDS: LOVENOX SUBQ SCH ×2 (09:41→20:01)
[2018-06-05] MEDS: SODIUM CHLORIDE 0.9% INJ SCH ×2 (09:42→20:01)
--- NOTE | 2018-06-05 11:28 | PROGRESS NOTE ---
DATE: 06/05/2018 Bigg has been extubated. He appears to breathing comfortably right now. With moderate stimulation, he opened his eyes and seemed to smile briefly. I did not push him for further response or communication. Sister at the bedside reports she believes that he looked at her and followed her with gaze from one side of the bed to the other earlier this morning. He has not had clinically recognized seizure. We will plan to continue his current 3-drug seizure management regimen at current doses for another day or so. We might begin tapering levetiracetam if he continues doing well. If there is question of seizure, we may need to repeat his EEG. No urgent suggestions today. Thanks again for allowing Neurology to follow Bigg. cc: MD Sid Bazan III, Jr, MD MTDD
[2018-06-06] MEDS: SOLU-MEDROL IV SCH ×3 (00:09→17:17)
[2018-06-06] MEDS: ZOSYN 3.375 GM in NS 50 ML IV SCH ×4 (01:38→20:22)
[2018-06-06] MEDS: DUONEB (A & A) INH SCH ×6 (03:30→23:30)
[2018-06-06] MEDS: DEPACON 1,000 MG in NS 50 ML IV SCH ×4 (04:10→22:03)
[2018-06-06 05:10] LABS: ALLEN TEST YES; BE 13.5 mmoll (-3.0-3.0); BLOOD TYPE ARTERIAL; HCO3-(ACT) 35.4 mmoll (20.0-26.0); METHB 1.4 % (0.0-1.5); O2(CT) 15.9 mL/dL (15.0-23.0); O2HB 96.4 % (95.0-99.0); PO2(98.6) 147 mmHg (60-100); SAMPLE BLOOD; THB 11.5 g/dL (11.5-17.4)
[2018-06-06 05:15] LABS: MODALITY BI PAP; PCO2(98.6) 66 mmHg (35-45)
[2018-06-06] MEDS: VANCOMYCIN 1,900 MG in NS 500 ML IV SCH ×2 (05:40→18:16)
[2018-06-06] MEDS: PATIENT'S OWN MED NG SCH ×3 (05:40→21:59)
[2018-06-06] MEDS: SYNTHROID IV SCH (06:06)
[2018-06-06 06:14] LABS: HEMATOCRIT 32.8 % (42.0-52.0); HEMOGLOBIN 10.9 g/dL (14.0-18.0); MCH 31.5 PG (27-31); MCHC 33.2 g/dL (33-37); MCV 94.8 FL (81-99); MPV 11.9 FL (7.4-10.4); RBC 3.46 XMIL (4.7-6.1); RDW 14.3 % (11.5-14.5); WBC 5.78 X1000 (4.8-10.8)
[2018-06-06 07:10] LABS: AGAP 6; ALB/GLOB RATIO 1.1; ALKALINE PHOSPHATASE 130 U/L (32-122); BUN 24 mg/dL (8-22); CALCIUM 8.7 mg/dL (8.8-10.2); CHLORIDE 95 mmol/L (98-107); COSMO 281; CREATININE 0.3 mg/dL (0.7-1.2); ESTIMATED GFR > 60; GLUCOSE 125 mg/dL (70-104); GOT 12 U/L (10-34); GPT 8 U/L (10-44); POTASSIUM 4.1 mmol/L (3.5-5.1); SODIUM 138 mmol/L (136-145); TCO2 37 mmol/L (25-35); TOTAL BILIRUBIN < 0.15 mg/dL (0.20-1.00); TOTAL PROTEIN 5.7 g/dL (6.3-8.3)
--- NOTE | 2018-06-06 07:18 | Diag Imaging Result Doc PS360 ---
EXAM: CHEST-PORTABLE HISTORY: resp failure TECHNIQUE: Chest single view COMPARISON: 06/05/2018 FINDINGS: No change in the nasogastric tube or right-sided PICC line. The lungs are well expanded. Cardiomegaly. Pleural effusions identified. Small bilateral infiltrates similar to the prior exam. No consolidation. IMPRESSION: Stable chest Electronically signed by Man Benavides 06/06/2018 7:16 AM
[2018-06-06] MEDS: KEPPRA 1,500 MG in NS 100 ML IV SCH ×3 (08:02→23:26)
[2018-06-06] MEDS: LOVENOX SUBQ SCH ×2 (08:02→20:22)
[2018-06-06] MEDS: PEPCID IV SCH ×2 (08:02→20:23)
[2018-06-06] MEDS: SODIUM CHLORIDE 0.9% INJ SCH ×2 (08:02→20:23)
--- NOTE | 2018-06-06 09:00 | PROGRESS NOTE ---
DATE: 06/06/2018 LOCATION: ICU bed 7. SUBJECTIVE: Mr. Dean has not had any setbacks. He has not had seizure recognized. His levetiracetam level from several days ago came back 22. Recent levels, as reported, do not suggest he would be having significant sedation from seizure medicines. On exam, he is more awake and alert than yesterday, but still not attentive to me and not communicating with me. He follows with gaze from one side of the bed to the other. He moved each hand briefly, and that appeared to be voluntary and purposeful. I do not have any new suggestion from a Neurology standpoint. I think we should continue current 3-drug seizure management, and follow. Eventually, we will consider tapering off of one of these, probably levetiracetam first. Further plans will depend on his clinical course. Thank you for allowing Neurology to follow Mr. Dean. cc: MD Sid Bazan III, Jr, MD MTDD
--- NOTE | 2018-06-06 09:10 | PROGRESS NOTE ---
DATE: 06/06/2018 SUBJECTIVE: The patient is still off the ventilator, still not real responsive but does open his eyes and his sister thinks that he follows her with his eyes a little bit. Has had no more seizures that we can clinically tell about. OBJECTIVE: Blood pressure is 106/67, respirations 27, pulse 77 and regular, temperature is 98.8 degrees Fahrenheit. HEENT: Normocephalic. Lungs: Have a few rales anteriorly. Heart: Regular rate and rhythm without murmurs, gallops, or friction rubs. Abdomen: Soft. Active bowel sounds. No organomegaly or tenderness. Neurological Examination: Unchanged except that he does open his eyes some. He does have encephalopathy. Blood gas shows a pH of 7.40, with a pCO2 of 66, PO2 of 147, on BiPAP with an FiO2 of 35%. Right now, he is off of BiPAP. White count 5780, hemoglobin 10.9, hematocrit 32.8. Electrolytes essentially stable. ASSESSMENT: 1. Respiratory arrest. 2. Cardiac arrest. 3. Fibrotic lung disease/chronic obstructive pulmonary disease. 4. Seizures. 5. Encephalopathy. 6. Anemia. 7. Poor nutrition. Albumin now up to 3 and total protein 5.7. PLAN: Continue support. I did talk with his sister who was in the room with him today. cc: Sid Guerrero Jr, MD
[2018-06-07] MEDS: ZOSYN 3.375 GM in NS 50 ML IV SCH ×4 (01:26→20:03)
[2018-06-07] MEDS: SOLU-MEDROL IV SCH ×3 (01:26→17:31)
[2018-06-07] MEDS: DUONEB (A & A) INH SCH ×6 (03:46→23:30)
[2018-06-07] MEDS: DEPACON 1,000 MG in NS 50 ML IV SCH ×4 (04:01→22:38)
[2018-06-07] MEDS: VANCOMYCIN 1,900 MG in NS 500 ML IV SCH ×2 (05:41→17:31)
[2018-06-07] MEDS: PATIENT'S OWN MED NG SCH ×3 (05:41→21:13)
[2018-06-07 05:49] LABS: ALLEN TEST YES; BE 11.9 mmoll (-3.0-3.0); BLOOD TYPE ARTERIAL; HCO3-(ACT) 34.1 mmoll (20.0-26.0); METHB 0.9 % (0.0-1.5); O2(CT) 21.4 mL/dL (15.0-23.0); PO2(98.6) 88 mmHg (60-100); SAMPLE BLOOD; SAO2 98.1 % (95.0-100.0); pH(98.6) 7.38 (7.35-7.45)
[2018-06-07 05:50] LABS: MODALITY BI PAP; PCO2(98.6) 69 mmHg (35-45)
[2018-06-07 05:50] LABS: HEMATOCRIT 34.5 % (42.0-52.0); HEMOGLOBIN 11.3 g/dL (14.0-18.0); MCH 30.8 PG (27-31); MCHC 32.8 g/dL (33-37); MPV 12.6 FL (7.4-10.4); RBC 3.67 XMIL (4.7-6.1); RDW 14.6 % (11.5-14.5); WBC 6.11 X1000 (4.8-10.8)
[2018-06-07] MEDS: SYNTHROID IV SCH (06:10)
[2018-06-07] MEDS: SODIUM CHLORIDE 0.9% INJ PRN (06:12)
[2018-06-07 07:03] LABS: AGAP 8; ALBUMIN 2.9 g/dL (3.5-5.0); ALKALINE PHOSPHATASE 138 U/L (32-122); BUN 16 mg/dL (8-22); CHLORIDE 94 mmol/L (98-107); COSMO 275; CREATININE 0.3 mg/dL (0.7-1.2); ESTIMATED GFR > 60; GLUCOSE 127 mg/dL (70-104); GOT 14 U/L (10-34); GPT 8 U/L (10-44); POTASSIUM 4.3 mmol/L (3.5-5.1); SODIUM 136 mmol/L (136-145); TCO2 34 mmol/L (25-35); TOTAL BILIRUBIN < 0.15 mg/dL (0.20-1.00); TOTAL PROTEIN 5.9 g/dL (6.3-8.3)
--- NOTE | 2018-06-07 07:32 | Diag Imaging Result Doc PS360 ---
CHEST-PORTABLE - 06/07/2018 INDICATION: resp failure COMPARISON: 06/06/2018 FINDINGS: Stable right PICC line and nasogastric tube. Stable hazy opacities or infiltrates in the lung apices. No new infiltrates. Heart size remains normal. IMPRESSION: No change from prior. Electronically signed by Shashank Hall 06/07/2018 7:30 AM
--- NOTE | 2018-06-07 08:29 | PROGRESS NOTE ---
DATE: 06/07/2018 SUBJECTIVE: The patient is not responsive at this time. He will open his eyes some. He grimaces when he is being suctioned, otherwise does not seem to respond. OBJECTIVE: Vital Signs: Blood pressure is 103/72, respirations 20, pulse 76, temperature 97.9 degrees Fahrenheit. HEENT: He is normocephalic. EOMS intact. PERRLA. Throat clear. Lungs: Have a few rales anteriorly. Heart: Regular rate and rhythm without murmurs, gallops, or friction rubs. Abdomen: Soft. Active bowel sounds. No organomegaly or tenderness. Neurological exam: Unchanged. LABS AND X-RAYS: Chest x-ray unchanged; still has some stable hazy opacities or infiltrates in the lung apices. He has some fibrosis. Laboratory shows white count 6110, hemoglobin 11.3, hematocrit 34.5. Blood gas shows a pH 7.38 with a pCO2 of 69 and a PO2 of 88. That was when he was on BiPAP with 28% FiO2. Chemistries are essentially stable. ASSESSMENT: 1. Respiratory arrest. 2. Cardiac arrest. 3. Pneumonia. 4. Encephalopathy. 5. Seizure disorder. 6. Poor nutrition. 7. Anemia. 8. Low albumin of 2.9. PLAN: The patient is off the ventilator now. We will continue to support. We were able to decrease his oxygen or his FiO2 somewhat. cc: Sid Guerrero Jr, MD
[2018-06-07] MEDS: PEPCID IV SCH ×2 (08:53→20:03)
[2018-06-07] MEDS: KEPPRA 1,500 MG in NS 100 ML IV SCH ×3 (08:53→23:10)
[2018-06-07] MEDS: SODIUM CHLORIDE 0.9% INJ SCH ×2 (08:54→20:04)
[2018-06-07] MEDS: LOVENOX SUBQ SCH ×2 (08:54→20:04)
--- NOTE | 2018-06-07 09:38 | PROGRESS NOTE ---
DATE: 06/07/2018 SUBJECTIVE: Bigg has not had any more seizures recognized. He has continued to become gradually more alert and to maintain attention better. He appears to be tolerating current regimen with levetiracetam 1500 mg IV q.8 hours, valproic acid 1000 mg IV q.6 hours, carbamazepine 400 mg per tube q.8 hours. OBJECTIVE: On my exam, Bigg is awake and alert. He seemed to fix his gaze and track me inconsistently. He did not seem attentive to me otherwise. He did not communicate. IMPRESSION: I think we should continue current management. There is no clinical evidence of toxicity with current regimen. If he continues to do well with good seizure control, we can begin to taper levetiracetam. Thank you for asking Neurology to see Bigg. cc: MD Sid Bazan III, Jr, MD MTDD
--- NOTE | 2018-06-07 16:37 | PULMONOLOGY PROGRESS NOTE ---
DATE: 06/07/2018 SUBJECTIVE: Patient eyes are open. His vision scans right to left. It is not clear that he tracks the practitioner. OBJECTIVE: Vital signs: Blood pressure 113/70, heart rate 88, respiratory rate 26, saturation 95% on 3 L per nasal cannula. He has audible rhonchi noted. HEENT: Pupils are equal. Oropharynx has some dried secretions present. Neck: Is supple. Chest reveals coarse rhonchi bilaterally. Cardiac: S1, S2. Abdomen: Soft. Extremities: Reveal trace edema. LABORATORIES: Chest x-ray reveals bilateral infiltrates with an apical predominance. No change from 06/06/2018. White blood count 6.11, hemoglobin 11.3, platelet count 162,000. Sodium 136, potassium 4.3, chloride 94, bicarbonate 34, BUN 16, creatinine 0.3, pre-albumin 28.9. IMPRESSION: A 38-year-old with history of encephalitis as a child who has chronic hypoxemic and chronic hypercapnic respiratory failure. The patient has 1. Survived a cardiopulmonary arrest. 2. Acute hypoxemic respiratory failure. 3. Pneumonia. 4. Post resuscitation encephalopathy, hypoxemia is suspected. 5. Seizure disorder. 6. Protein malnutrition. PLAN: 1. Continue current antibiotic regimen. 2. P.r.n. nasotracheal suctioning. 3. Cycle BiPAP. 4. Continue tube feeds. 5. Prognosis appears to be guarded. He remains at risk for reintubation. cc: MD Sid Macario Jr, MD
[2018-06-08] MEDS: SOLU-MEDROL IV SCH ×3 (00:01→17:18)
[2018-06-08] MEDS: ZOSYN 3.375 GM in NS 50 ML IV SCH ×4 (02:04→19:17)
[2018-06-08] MEDS: DUONEB (A & A) INH SCH ×6 (03:30→23:40)
[2018-06-08] MEDS: DEPACON 1,000 MG in NS 50 ML IV SCH ×4 (04:27→22:13)
[2018-06-08] MEDS: PATIENT'S OWN MED NG SCH ×3 (05:24→21:39)
[2018-06-08] MEDS: VANCOMYCIN 1,900 MG in NS 500 ML IV SCH ×2 (05:24→18:43)
[2018-06-08 05:42] LABS: ALLEN TEST YES; BE 12.7 mmoll (-3.0-3.0); BLOOD TYPE ARTERIAL; HCO3-(ACT) 34.8 mmoll (20.0-26.0); METHB 1.3 % (0.0-1.5); O2HB 96.6 % (95.0-99.0); PO2(98.6) 170 mmHg (60-100); SAMPLE BLOOD; SAO2 100.3 % (95.0-100.0); THB 11.5 g/dL (11.5-17.4); pH(98.6) 7.48 (7.35-7.45)
[2018-06-08 05:43] LABS: MODALITY BI PAP; PCO2(98.6) 51 mmHg (35-45)
[2018-06-08] MEDS: SYNTHROID IV SCH (06:23)
[2018-06-08] MEDS: SODIUM CHLORIDE 0.9% INJ PRN (06:23)
[2018-06-08 06:25] LABS: HEMATOCRIT 35.5 % (42.0-52.0); HEMOGLOBIN 12.1 g/dL (14.0-18.0); MCH 31.3 PG (27-31); MCHC 34.1 g/dL (33-37); MCV 91.7 FL (81-99); MPV 12.4 FL (7.4-10.4); RBC 3.87 XMIL (4.7-6.1); RDW 14.5 % (11.5-14.5); WBC 5.01 X1000 (4.8-10.8)
[2018-06-08 06:52] LABS: AGAP 8; ALB/GLOB RATIO 1.1; ALBUMIN 3.1 g/dL (3.5-5.0); ALKALINE PHOSPHATASE 142 U/L (32-122); BUN 16 mg/dL (8-22); CALCIUM 8.9 mg/dL (8.8-10.2); CHLORIDE 95 mmol/L (98-107); COSMO 278; CREATININE 0.3 mg/dL (0.7-1.2); ESTIMATED GFR > 60; GLUCOSE 117 mg/dL (70-104); GOT 14 U/L (10-34); GPT 8 U/L (10-44); POTASSIUM 4.4 mmol/L (3.5-5.1); SODIUM 138 mmol/L (136-145); TCO2 35 mmol/L (25-35); TOTAL BILIRUBIN 0.22 mg/dL (0.20-1.00); TOTAL PROTEIN 5.9 g/dL (6.3-8.3)
--- NOTE | 2018-06-08 07:39 | Diag Imaging Result Doc PS360 ---
CHEST-PORTABLE - 06/08/2018 INDICATION: resp failure COMPARISON: 06/07/2018 FINDINGS: Support lines and tubes are stable. Stable extensive bilateral upper lobe infiltrates. Stable minimal patchy infiltrate or atelectasis at the left lung base. No new infiltrates. No pneumothorax or significant pleural effusion. Heart size remains normal. IMPRESSION: No change from prior. Electronically signed by Shashank Hall 06/08/2018 7:36 AM
[2018-06-08] MEDS: KEPPRA 1,500 MG in NS 100 ML IV SCH ×3 (07:44→23:01)
[2018-06-08] MEDS: LOVENOX SUBQ SCH ×2 (07:59→20:45)
[2018-06-08] MEDS: SODIUM CHLORIDE 0.9% INJ SCH ×2 (07:59→20:45)
[2018-06-08] MEDS: PEPCID IV SCH ×2 (07:59→20:45)
--- NOTE | 2018-06-08 11:07 | PROGRESS NOTE ---
DATE: 06/08/2018 SUBJECTIVE: The patient is sleeping now but apparently has been awake at times and been more alert. His sister is in the room and tells me that when Dr. Rader was in, he was alert and seemed better. OBJECTIVE: Vital signs: Blood pressure 116/76, respirations 18, pulse 81, temperature 97.3 degrees Fahrenheit. HEENT: Normocephalic. EOMs intact. PERRLA. Throat clear. Lungs: Have only occasional rales anteriorly. They do sound better. Chest x-ray looks the same. Heart: Regular rate and rhythm without murmurs, gallops, friction rubs. Abdomen: Soft. Active bowel sounds. No organomegaly or tenderness. Neurological: The patient is sleeping at this time. Did not arouse easily. Blood gas shows pH of 7.48, CO2 of 51, PO2 170. He is on 28% FiO2 on BiPAP. Electrolytes are essentially normal. Protein is 5.9, albumin 3.1. White count 5010, hemoglobin up to 12.1. ASSESSMENT: 1. Respiratory arrest. 2. Cardiac arrest. 3. Encephalopathy. 4. Seizure disorder. PLAN: Continue support. cc: Sid Guerrero Jr, MD
--- NOTE | 2018-06-08 18:14 | PULMONOLOGY PROGRESS NOTE ---
DATE: 06/08/2018 SUBJECTIVE: The patient is sleeping but arousable. He does not follow commands. He is not definitely tracking the examiner. OBJECTIVE: Vital Signs: Blood pressure 102/69, heart rate 82, respiratory rate 19, oxygen saturation 96% on 2 L per nasal cannula. HEENT: Pupils are equal and reactive. Oropharynx clear. Neck: Is supple with scattered rhonchi. Rhonchi are slightly less prominent than yesterday. Cardiac: Heart rate regular rate, S1 and S2 present. Abdomen: Soft. Extremities: Without edema. LABORATORIES: Minimal infiltrate at the left base, no change. White blood count 5.0, hemoglobin 12.1, platelet count 158,000. Arterial blood gas pH 7.48, pCO2 of 51, PO2 of 170. Sodium 138, potassium 4.4, chloride 95, BUN 16, creatinine 0.3. IMPRESSION: A 38-year-old with history of encephalitis as a child with 1. Status post cardiopulmonary arrest. 2. Acute hypoxemic respiratory failure. 3. Pneumonia which is improving. 4. Encephalopathy, hypoxemia is suspected. 5. Seizure disorder. 6. Protein calorie malnutrition. RECOMMENDATION: 1. Continue current antibiotic regimen. 2. Continue to cycle BiPAP and oxygen. 3. Continue nasotracheal suctioning. 4. Continue tube feeds. 5. Continue ICU monitoring. The patient's status is marginal. He is at risk for reintubation. cc: MD Sid Macario Jr, MD
[2018-06-09] MEDS: ZOSYN 3.375 GM in NS 50 ML IV SCH ×4 (02:18→20:26)
[2018-06-09] MEDS: SOLU-MEDROL IV SCH ×3 (02:18→17:20)
[2018-06-09] MEDS: DUONEB (A & A) INH SCH ×6 (02:43→23:31)
[2018-06-09] MEDS: DEPACON 1,000 MG in NS 50 ML IV SCH ×4 (04:06→23:15)
[2018-06-09] MEDS: ATIVAN IV PRN (04:36)
[2018-06-09 05:25] LABS: ALLEN TEST YES; BLOOD TYPE ARTERIAL; HCO3-(ACT) 34.2 mmoll (20.0-26.0); METHB 1.4 % (0.0-1.5); O2HB 95.2 % (95.0-99.0); PO2(98.6) 103 mmHg (60-100); SAMPLE BLOOD; SAO2 98.8 % (95.0-100.0); THB 14.1 g/dL (11.5-17.4); pH(98.6) 7.39 (7.35-7.45)
[2018-06-09 05:26] LABS: MODALITY BI PAP; PCO2(98.6) 66 mmHg (35-45)
[2018-06-09] MEDS: VANCOMYCIN 1,900 MG in NS 500 ML IV SCH ×2 (05:53→17:20)
[2018-06-09] MEDS: PATIENT'S OWN MED NG SCH ×3 (05:53→22:10)
[2018-06-09 06:11] LABS: HEMATOCRIT 33.8 % (42.0-52.0); HEMOGLOBIN 11.4 g/dL (14.0-18.0); MCH 31.7 PG (27-31); MCHC 33.7 g/dL (33-37); MCV 93.9 FL (81-99); MPV 12.1 FL (7.4-10.4); RBC 3.6 XMIL (4.7-6.1); RDW 14.6 % (11.5-14.5); WBC 5.49 X1000 (4.8-10.8)
[2018-06-09] MEDS: SYNTHROID IV SCH (06:27)
[2018-06-09 06:57] LABS: AGAP 8; ALBUMIN 2.9 g/dL (3.5-5.0); ALKALINE PHOSPHATASE 140 U/L (32-122); BUN 19 mg/dL (8-22); CALCIUM 8.8 mg/dL (8.8-10.2); CHLORIDE 94 mmol/L (98-107); COSMO 272; CREATININE 0.3 mg/dL (0.7-1.2); ESTIMATED GFR > 60; GLUCOSE 90 mg/dL (70-104); GOT 13 U/L (10-34); GPT 7 U/L (10-44); SODIUM 135 mmol/L (136-145); TCO2 33 mmol/L (25-35); TOTAL BILIRUBIN 0.15 mg/dL (0.20-1.00); TOTAL PROTEIN 5.8 g/dL (6.3-8.3)
[2018-06-09] MEDS: KEPPRA 1,500 MG in NS 100 ML IV SCH ×3 (07:49→23:15)
--- NOTE | 2018-06-09 07:52 | Diag Imaging Result Doc PS360 ---
CHEST-PORTABLE - 06/09/2018 INDICATION: resp failure COMPARISON: 06/08/2018 FINDINGS: Stable nasogastric tube in good position. Stable COPD changes. There has been slight improvement in the bilateral upper lobe infiltrates. No new infiltrates. Heart size remains normal. IMPRESSION: Slight improvement from prior. Electronically signed by Shashank Hall 06/09/2018 7:49 AM
[2018-06-09] MEDS: SODIUM CHLORIDE 0.9% INJ SCH ×2 (08:01→20:26)
[2018-06-09] MEDS: PEPCID IV SCH ×2 (08:01→20:26)
[2018-06-09] MEDS: LOVENOX SUBQ SCH ×2 (08:01→20:26)
--- NOTE | 2018-06-09 10:36 | PROGRESS NOTE ---
DATE: 06/09/2018 SUBJECTIVE: The patient is not communicating at this time. He is off the ventilator. He did smile at his mother according to her. He is not responding much now. OBJECTIVE: Vitals: Blood pressure is 106/75, respirations 18, temperature 97 degrees Fahrenheit. Pulse 98 and regular. HEENT: Normocephalic. Lungs: Have a few rales anteriorly. Maybe less than even yesterday. Heart: Regular rate and rhythm without murmurs, gallops, friction rubs. Abdomen: Soft. Active bowel sounds. No organomegaly or tenderness. Neurological: The patient is not responsive at this time. LABORATORY: Shows blood gas with a pH of 7.39, pCO2 of 66, PO2 of 103 on the BiPAP with an FiO2 of 28%. Sodium 135, potassium 4, chloride 94, BUN 29, creatinine 0.3. Albumin 2.9. Protein 5.8. White count 5490, hemoglobin 11.4, hematocrit 33.8. His mother and his sister were both in the room today and I had a long talk with them. I explained to his mother what had been going on as she has not been here every day as her has been hospitalized in another hospital and has been critical as well. ASSESSMENT: 1. Respiratory distress. 2. Cardiac arrest, resuscitated. 3. Pneumonia. Chest x-ray shows some clearing of the apical infiltrates. 4. Seizure disorder. 5. Encephalopathy from childhood. PLAN: Continue support. Condition is still critical. cc: Sid Guerrero Jr, MD
--- NOTE | 2018-06-09 11:14 | PULMONOLOGY PROGRESS NOTE ---
DATE: 06/09/2018 SUBJECTIVE: The patient eyes are closed. He does partially open his eyes with stimulation and calling his name. He appears to be comfortable. OBJECTIVE: Vital Signs: Blood pressure 112/73, heart rate 96, respiratory rate 20, oxygen saturation 98% on 2 L per nasal cannula. HEENT: Pupils are equal and reactive. Oropharynx is clear with mild increase in secretions noted. Neck: Supple. Chest: Reveals occasional rhonchi bilaterally. Cardiac: S1, S2. Abdomen: Soft with positive bowel sounds. Extremities: Without edema. LABORATORIES: Chest x-ray reveals some decrease in infiltrates in the upper lobes. Hematology: White blood count 5.49, hemoglobin 11.4, platelet count 135,000. Chemistry: Sodium 135, potassium 4, chloride 94, bicarbonate 33, BUN 19, creatinine 0.3. Pre-albumin normal 2 days ago. Arterial blood gas on BiPAP: PH 7.39, pCO2 of 66, PO2 of 103. 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 Sustained a cardiopulmonary arrest. 2. Now has acute hypoxemic respiratory failure. 3. Pneumonia with continued improvement. 4. Ongoing encephalopathy. 5. Seizure disorder. 6. Protein calorie malnutrition. RECOMMENDATION: 1. Continue current antibiotic regimen. 2. Continue to cycle BiPAP at bedtime and p.r.n. 3. The patient has been admitted to the hospital for 21 days. He does not appear to be a candidate for p.o. intake at this juncture. I would continue tube feeds and recommend discussions with his mother about placing a feeding tube. 4. Continue ICU monitoring. He remains marginal and his family continues to push for aggressive care. cc: MD Sid Macario Jr, MD
[2018-06-10] MEDS: ZOSYN 3.375 GM in NS 50 ML IV SCH ×4 (02:26→19:32)
[2018-06-10] MEDS: SOLU-MEDROL IV SCH ×3 (02:26→16:35)
[2018-06-10] MEDS: DUONEB (A & A) INH SCH ×6 (03:18→22:30)
[2018-06-10 04:36] LABS: ALLEN TEST YES; BE 16.4 mmoll (-3.0-3.0); BLOOD TYPE ARTERIAL; HCO3-(ACT) 37.6 mmoll (20.0-26.0); METHB 1.1 % (0.0-1.5); O2(CT) 15.2 mL/dL (15.0-23.0); O2HB 93.4 % (95.0-99.0); PO2(98.6) 72 mmHg (60-100); SAMPLE BLOOD; SAO2 96.5 % (95.0-100.0); THB 11.5 g/dL (11.5-17.4); pH(98.6) 7.45 (7.35-7.45)
[2018-06-10 04:37] LABS: MODALITY BI PAP
[2018-06-10 04:38] LABS: PCO2(98.6) 62 mmHg (35-45)
[2018-06-10] MEDS: VANCOMYCIN 1,900 MG in NS 500 ML IV SCH ×2 (06:00→17:24)
[2018-06-10] MEDS: SYNTHROID IV SCH (06:00)
[2018-06-10] MEDS: DEPACON 1,000 MG in NS 50 ML IV SCH ×4 (06:00→22:01)
[2018-06-10] MEDS: PATIENT'S OWN MED NG SCH ×3 (06:00→21:59)
[2018-06-10 06:47] LABS: HEMATOCRIT 32.1 % (42.0-52.0); HEMOGLOBIN 10.8 g/dL (14.0-18.0); MCH 30.8 PG (27-31); MCHC 33.6 g/dL (33-37); MCV 91.5 FL (81-99); MPV 12.4 FL (7.4-10.4); RBC 3.51 XMIL (4.7-6.1); RDW 14.4 % (11.5-14.5); WBC 5.33 X1000 (4.8-10.8)
[2018-06-10 06:59] LABS: AGAP 9; ALB/GLOB RATIO 1.1; ALBUMIN 3.1 g/dL (3.5-5.0); ALKALINE PHOSPHATASE 147 U/L (32-122); BUN 18 mg/dL (8-22); CALCIUM 8.9 mg/dL (8.8-10.2); CHLORIDE 95 mmol/L (98-107); COSMO 279; CREATININE 0.3 mg/dL (0.7-1.2); ESTIMATED GFR > 60; GLUCOSE 123 mg/dL (70-104); GOT 18 U/L (10-34); GPT 7 U/L (10-44); POTASSIUM 4.2 mmol/L (3.5-5.1); SODIUM 138 mmol/L (136-145); TCO2 34 mmol/L (25-35); TOTAL BILIRUBIN 0.21 mg/dL (0.20-1.00); TOTAL PROTEIN 5.8 g/dL (6.3-8.3)
--- NOTE | 2018-06-10 07:46 | Diag Imaging Result Doc PS360 ---
EXAM: CHEST-PORTABLE INDICATION: resp failure TECHNIQUE: One view COMPARISON: 06/09/2018 FINDINGS: Support tubes and lines are in stable positions. The bilateral upper lobe infiltrates are approximately stable. No new consolidation is identified. Cardiac silhouette is stable. IMPRESSION: Essentially stable chest. Electronically signed by Leon Vicente 06/10/2018 7:43 AM
[2018-06-10] MEDS: PEPCID IV SCH ×2 (08:33→21:58)
[2018-06-10] MEDS: KEPPRA 1,500 MG in NS 100 ML IV SCH ×3 (08:33→23:10)
[2018-06-10] MEDS: LOVENOX SUBQ SCH ×2 (08:33→21:58)
[2018-06-10] MEDS: SODIUM CHLORIDE 0.9% INJ SCH ×2 (08:33→21:59)
--- NOTE | 2018-06-10 09:35 | PROGRESS NOTE ---
DATE: 06/10/2018 SUBJECTIVE: The patient is not responding. He will open his eyes. Will not squeeze my fingers when I ask him to. Does not seem to follow with his eyes at this point. No family members are here this morning. OBJECTIVE: Vital Signs: Temperature is 97.5 degrees Fahrenheit, pulse 92 and regular, respirations 22, blood pressure 109/68. HEENT: He is normocephalic. Lungs: Have occasional rales anteriorly but do seem more clear. Chest x-ray is stable. Heart: Regular rate and rhythm without murmurs, gallops, or friction rubs. Abdomen: Soft. Active bowel sounds. No organomegaly or tenderness. Neurological Examination: The patient is not responding at this time and has not been much since he has been in the hospital. Laboratory: Shows a blood gas with a pH of 7.45, pCO2 62, PO2 is 72 on BiPAP at 28%. White count is 5330, hemoglobin 10.8, hematocrit 32.9. Electrolytes are stable. Albumin is 3.1, total protein is 5.8. ASSESSMENT: 1. Respiratory arrest. 2. Cardiac arrest. 3. Encephalopathy. 4. Seizure disorder. 5. Poor nutrition. 6. Anemia. 7. Pneumonia, with some improvement. PLAN: Continue to support. Condition is still guarded. cc: Sid Guerrero Jr, MD
--- NOTE | 2018-06-10 16:15 | PROGRESS NOTE ---
DATE: 06/10/2018 SUBJECTIVE: No major overnight events. Mr. Dean has been doing relatively well, making some steady progress. He has been extubated since I last saw him. There has not been any recent report of seizure activity and I believe none since his carbamazepine has been increased last week. MEDICATIONS: He is tolerating current AED regimen which includes:. Levetiracetam 1500 mg IV every 8 hours, carbamazepine 1600 mg daily divided every 8 hours and valproic acid 1000 mg IV every 6 hours. OBJECTIVE: He is afebrile. His blood pressure is 110/66, pulse 90s. He is supine in bed with head of bed elevated. He is off the ventilator on nasal cannula. He is awake and alert with eyes open. Looking around the room. He smiles at times. Seemingly in response to his sister. He did not definitely track me in the room today. Pupils are equal and reactive. Gaze is conjugate. Face is symmetric. I did not see spontaneous movement of the limbs during my time at the bedside. I did see him turn his head from side to side and his eyes while I was in the room. LABS: Reviewed in the chart. BUN 18, creatinine 0.3. AST 18, ALT 7. Sodium of 138, calcium of 8.9. ASSESSMENT AND PLAN: 1. Status post respiratory and cardiac arrest. 2. Static encephalopathy and intractable epilepsy. No seizures noted in about a week. Mr. Dean has made some steady improvement since I last saw him. He has tolerated extubation for now. I would continue his current antiepileptic regimen. I agree in the future we may taper the Levetiracetam slowly although I think given his stable and improving curse course currently I see no morton in doing that. We will continue to monitor clinically. cc: MD Sid Larsen Jr, MD
--- NOTE | 2018-06-10 18:56 | Extremity Venous Study ---
PROCEDURE NAME: Venous U/S Right Arm - 06/05/2018 VISUAL ARTS TEACHER: Silas. REFERRING PHYSICIAN: Dr. Guerrero. INDICATION: Edema with a right-sided PICC line. FINDINGS: Deep superficial veins right upper extremity and neck were visualized. All vessels appear compressible with forward flow. There is a PICC line visualized within the basilic vein coursing the axillary artery as would be expected. SUMMARY: No evidence of deep or superficial venous thrombosis seen the right upper extremity, neck. cc: MD Stephanie Cedeño CRNP Roger H. Moss Jr, MD
[2018-06-11] MEDS: ZOSYN 3.375 GM in NS 50 ML IV SCH ×4 (02:00→19:54)
[2018-06-11] MEDS: SOLU-MEDROL IV SCH ×3 (02:00→16:02)
[2018-06-11] MEDS: DUONEB (A & A) INH SCH ×6 (03:57→23:25)
[2018-06-11 05:09] LABS: ALLEN TEST YES; BE 14.2 mmoll (-3.0-3.0); BLOOD TYPE ARTERIAL; MODALITY BI PAP; O2(CT) 17.6 mL/dL (15.0-23.0); O2HB 96.9 % (95.0-99.0); PO2(98.6) 173 mmHg (60-100); SAMPLE BLOOD; SAO2 99.9 % (95.0-100.0); THB 12.7 g/dL (11.5-17.4); pH(98.6) 7.41 (7.35-7.45)
[2018-06-11 05:10] LABS: PCO2(98.6) 66 mmHg (35-45)
[2018-06-11] MEDS: SYNTHROID IV SCH (06:02)
[2018-06-11] MEDS: VANCOMYCIN 1,900 MG in NS 500 ML IV SCH ×2 (06:02→17:43)
[2018-06-11] MEDS: PATIENT'S OWN MED NG SCH ×3 (06:02→21:17)
[2018-06-11] MEDS: DEPACON 1,000 MG in NS 50 ML IV SCH ×4 (06:02→22:33)
[2018-06-11 06:31] LABS: HEMATOCRIT 33.6 % (42.0-52.0); MCH 31.1 PG (27-31); MCHC 32.7 g/dL (33-37); MCV 94.9 FL (81-99); MPV 11.8 FL (7.4-10.4); RBC 3.54 XMIL (4.7-6.1); WBC 4.96 X1000 (4.8-10.8)
--- NOTE | 2018-06-11 07:06 | Diag Imaging Result Doc PS360 ---
EXAM: CHEST-PORTABLE 06/11/2018 HISTORY: resp failure TECHNIQUE: AP portable at 0514 COMMENT: There is an NG tube passing below the diaphragm. There is a PICC line on the right with its tip in the superior vena cava. There is coarse interstitial opacity bilaterally particularly in the left upper lobe. There is less well-defined dense opacity in the right apex. Compared to 06/10/2018 this has not changed appreciably. Compared to 06/09/2018 there has been improvement in atelectasis over the left hemidiaphragm. IMPRESSION: Fibrosis with possible superimposed atelectasis or pneumonia, improved since 06/09/2018. Electronically signed by Carlos De Santiago 06/11/2018 7:03 AM
[2018-06-11 07:39] LABS: AGAP 6; ALB/GLOB RATIO 1.1; ALKALINE PHOSPHATASE 141 U/L (32-122); BUN 18 mg/dL (8-22); CALCIUM 8.9 mg/dL (8.8-10.2); CHLORIDE 95 mmol/L (98-107); COSMO 278; CREATININE 0.2 mg/dL (0.7-1.2); ESTIMATED GFR > 60; GLUCOSE 105 mg/dL (70-104); GOT 14 U/L (10-34); GPT 6 U/L (10-44); SODIUM 138 mmol/L (136-145); TCO2 37 mmol/L (25-35); TOTAL BILIRUBIN 0.17 mg/dL (0.20-1.00); TOTAL PROTEIN 5.7 g/dL (6.3-8.3)
[2018-06-11] MEDS: PEPCID IV SCH ×2 (08:01→20:48)
[2018-06-11] MEDS: SODIUM CHLORIDE 0.9% INJ SCH ×2 (08:02→20:48)
[2018-06-11] MEDS: LOVENOX SUBQ SCH ×2 (08:03→20:48)
[2018-06-11] MEDS: KEPPRA 1,500 MG in NS 100 ML IV SCH ×3 (08:18→23:43)
--- NOTE | 2018-06-11 09:25 | PROGRESS NOTE ---
DATE: 06/11/2018 SUBJECTIVE: The patient is awake, but not really following much. However, yesterday some time after I had seen him in the morning, his sister who was there this morning tells me that he sat up or tried to, he laughed. He was a little bit more like his old self. Now he is a little less responsive, may just be worn out, but certainly some improvement. OBJECTIVE: Vitals: Blood pressure is 110/74, respirations 16, pulse 83, temperature 97.7 degrees Fahrenheit. HEENT: He is normocephalic. EOMS intact. PERRLA. Throat clear. Lungs: Have a few rales anteriorly. Chest x-ray actually shows some improvement of the infiltrates. Heart: Regular rate and rhythm without murmurs, gallops, friction rubs. Abdomen: Soft. Active bowel sounds. No organomegaly or tenderness. Neurological: At this time he does not really follow with his eyes, but his eyes are open. Yesterday, apparently he was a little bit better. ASSESSMENT: 1. Respiratory arrest. 2. Cardiac arrest. 3. Encephalopathy. 4. Seizure disorder. 5. Nutrition problems. 6. Anemia. LABORATORY: Shows a white count 4960, hemoglobin 11. PH 7.41 on blood gas, pCO2 66, PO2 173. This is when he was on the BiPAP with an FiO2 up to 40. Electrolytes essentially normal. PLAN: Continue to support. Also had pneumonia as a diagnosis. cc: Sid Guerrero Jr, MD
[2018-06-11] MEDS: CALMOSEPTINE OINTMENT TOP PRN (10:06)
--- NOTE | 2018-06-11 14:47 | PROGRESS NOTE ---
DATE: 06/11/2018 SUBJECTIVE: No major overnight events. No reports of seizure activity. There is no family at the bedside but note indicates that the sister apparently said he tried to sit up but he laughed at 1 point. He is afebrile, blood pressure 90s to 107 systolic, pulse 90s. Mr. Dean is supine in bed with eyes open. He is having some coughing at the moment and nurses come into suction perform mouth care. He remains extubated. He is deaf. He does not seem to track me in the room but his eyes are open and periodically seen moving around the room. He does not consistently blink to threat. Pupils are equal and reactive. I did not get him to move his extremities again today. LABS: Reviewed in the chart. BUN, creatinine 18 and 0.2, AST 14, ALT 6. MEDICATIONS: Currently tolerating the following AED regimen 1. Levetiracetam 1500 mg IV q.8 hours. 2. Carbamazepine 1600 mg daily divided every 8 hours. 3. Valproic acid 1000 mg IV q.6 hours . ASSESSMENT AND PLAN: 1. Status post respiratory and cardiac arrest. 2. Static encephalopathy with intractable epilepsy. There were witnessed seizure-like events noted during this hospitalization but none noted in at least 1 week. I see no reason to change his current antiepileptic medication regimen at this time though I agree in the future tapering the levetiracetam slowly would be reasonable. I think we can wait and get him more medically stable before doing that. Continue to monitor clinically. cc: MD Sid Larsen Jr, MD MTDD
[2018-06-12] MEDS: SOLU-MEDROL IV SCH ×3 (01:24→16:45)
[2018-06-12] MEDS: ZOSYN 3.375 GM in NS 50 ML IV SCH ×4 (01:24→19:15)
[2018-06-12] MEDS: DUONEB (A & A) INH SCH ×6 (02:47→23:56)
[2018-06-12] MEDS: DEPACON 1,000 MG in NS 50 ML IV SCH ×4 (04:29→23:30)
[2018-06-12 04:43] LABS: ALLEN TEST YES; BE 14.5 mmoll (-3.0-3.0); BLOOD TYPE ARTERIAL; HCO3-(ACT) 36.3 mmoll (20.0-26.0); PO2(98.6) 116 mmHg (60-100); SAMPLE BLOOD; pH(98.6) 7.41 (7.35-7.45)
[2018-06-12 04:45] LABS: MODALITY BI PAP
[2018-06-12 04:46] LABS: PCO2(98.6) 67 mmHg (35-45)
[2018-06-12] MEDS: PATIENT'S OWN MED NG SCH ×4 (05:12→21:51)
[2018-06-12 05:31] LABS: HEMATOCRIT 34.1 % (42.0-52.0); HEMOGLOBIN 11.4 g/dL (14.0-18.0); MCH 30.6 PG (27-31); MCHC 33.4 g/dL (33-37); MCV 91.4 FL (81-99); RBC 3.73 XMIL (4.7-6.1); RDW 14.5 % (11.5-14.5); WBC 6.24 X1000 (4.8-10.8)
[2018-06-12] MEDS: VANCOMYCIN 1,900 MG in NS 500 ML IV SCH ×2 (05:31→18:22)
[2018-06-12 05:56] LABS: AGAP 9; ALBUMIN 2.9 g/dL (3.5-5.0); ALKALINE PHOSPHATASE 144 U/L (32-122); BUN 15 mg/dL (8-22); CALCIUM 8.7 mg/dL (8.8-10.2); CHLORIDE 93 mmol/L (98-107); COSMO 277; CREATININE 0.3 mg/dL (0.7-1.2); ESTIMATED GFR > 60; GLUCOSE 149 mg/dL (70-104); GOT 13 U/L (10-34); GPT 6 U/L (10-44); SODIUM 137 mmol/L (136-145); TCO2 35 mmol/L (25-35); TOTAL BILIRUBIN 0.16 mg/dL (0.20-1.00); TOTAL PROTEIN 5.7 g/dL (6.3-8.3)
[2018-06-12] MEDS: SYNTHROID IV SCH (06:33)
[2018-06-12] MEDS: SODIUM CHLORIDE 0.9% INJ PRN (06:33)
--- NOTE | 2018-06-12 07:17 | Diag Imaging Result Doc PS360 ---
EXAM: CHEST-PORTABLE HISTORY: resp failure TECHNIQUE: Portable chest single view COMPARISON: 06/11/2018 FINDINGS: The lungs remain well expanded. No change in the right-sided PICC line or in the nasogastric tube. No cardiomegaly. There are increased interstitial markings in the upper lungs similar to the prior study. No consolidation. No pleural effusions identified. IMPRESSION: No interval change. Electronically signed by Man Benavides 06/12/2018 7:14 AM
--- NOTE | 2018-06-12 08:47 | PROGRESS NOTE ---
DATE: 06/12/2018 SUBJECTIVE: The patient is not communicating at this time but he is awake and looking around. OBJECTIVE: Vital Signs: Blood pressure 94/62, respirations 15, pulse 79, temperature 97.2 degrees Fahrenheit. HEENT: Normocephalic. Lungs: Sound fairly clear to auscultation. Heart: Regular rate and rhythm without murmurs, gallops, or friction rubs. Abdomen: Soft. Active bowel sounds. No organomegaly or tenderness. Neurological: The patient is awake, alert, but not otherwise very responsive. LABORATORY DATA: White count 6240, hemoglobin 11.4. Blood gas shows a pH of 7.41, pCO2 of 67, PO2 of 116 on 30% FiO2. Electrolytes stable. Chest x-ray unchanged. ASSESSMENT: 1. Respiratory arrest. 2. Cardiac arrest. 3. Encephalopathy. 4. Anemia. 5. Poor nutrition. 6. Seizure disorder. PLAN: Continue to support. cc: Sid Guerrero Jr, MD
[2018-06-12] MEDS: PEPCID IV SCH ×2 (09:05→20:21)
[2018-06-12] MEDS: SODIUM CHLORIDE 0.9% INJ SCH ×2 (09:06→20:21)
[2018-06-12] MEDS: LOVENOX SUBQ SCH ×2 (09:06→21:09)
[2018-06-12] MEDS: KEPPRA 1,500 MG in NS 100 ML IV SCH ×3 (09:08→23:30)
--- NOTE | 2018-06-12 13:00 | PROGRESS NOTE ---
DATE: 06/12/2018 Bigg has been definitely more alert and attentive for short periods of time in the last few days. Today, I cannot get him awake or alert. He appears to be sleeping peacefully. There is no clinical evidence of seizure. There is full lateral eye movement with passive head turning. Limb tone is symmetric. Neck is supple. He seemed briefly awake and fixed his gaze on me, but did not communicate, and very quickly seemed back to sleep. Discussed at length with sister at the bedside. No evidence of seizure in at least a week. He has 3 seizure medications on board, and there is some concern for sedative affect with that, but the report of increased alertness in recent days is encouraging. I do not think we need to rock the boat right now with reducing seizure medicine doses. No suggestions today. We will continue to follow. Thanks for asking Neurology to see Bigg. cc: MD Sid Bazan III, Jr, MD
[2018-06-13] MEDS: SOLU-MEDROL IV SCH ×3 (00:52→16:01)
[2018-06-13] MEDS: ZOSYN 3.375 GM in NS 50 ML IV SCH ×4 (02:03→19:20)
[2018-06-13] MEDS: DUONEB (A & A) INH SCH ×6 (03:28→23:15)
[2018-06-13 04:59] LABS: ALLEN TEST YES; BLOOD TYPE ARTERIAL; METHB 1.1 % (0.0-1.5); O2(CT) 15.6 mL/dL (15.0-23.0); O2HB 95.6 % (95.0-99.0); PO2(98.6) 94 mmHg (60-100); SAMPLE BLOOD; SAO2 98.7 % (95.0-100.0); THB 11.5 g/dL (11.5-17.4); pH(98.6) 7.38 (7.35-7.45)
[2018-06-13 05:01] LABS: MODALITY BI PAP; PCO2(98.6) 69 mmHg (35-45)
[2018-06-13] MEDS: VANCOMYCIN 1,900 MG in NS 500 ML IV SCH ×2 (05:29→18:17)
[2018-06-13] MEDS: DEPACON 1,000 MG in NS 50 ML IV SCH ×4 (05:29→22:57)
[2018-06-13] MEDS: PATIENT'S OWN MED NG SCH ×3 (05:33→22:56)
[2018-06-13 06:19] LABS: AGAP 6; ALB/GLOB RATIO 1.1; ALKALINE PHOSPHATASE 144 U/L (32-122); BUN 17 mg/dL (8-22); CALCIUM 8.8 mg/dL (8.8-10.2); CHLORIDE 93 mmol/L (98-107); COSMO 271; CREATININE 0.3 mg/dL (0.7-1.2); ESTIMATED GFR > 60; GLUCOSE 127 mg/dL (70-104); GOT 14 U/L (10-34); GPT 7 U/L (10-44); POTASSIUM 4.3 mmol/L (3.5-5.1); SODIUM 134 mmol/L (136-145); TCO2 35 mmol/L (25-35); TOTAL BILIRUBIN 0.17 mg/dL (0.20-1.00); TOTAL PROTEIN 5.8 g/dL (6.3-8.3)
[2018-06-13 06:22] LABS: HEMOGLOBIN 11.6 g/dL (14.0-18.0); MCH 31.3 PG (27-31); MCHC 34.1 g/dL (33-37); MCV 91.6 FL (81-99); MPV 12.1 FL (7.4-10.4); RBC 3.71 XMIL (4.7-6.1); RDW 14.8 % (11.5-14.5); WBC 5.1 X1000 (4.8-10.8)
[2018-06-13] MEDS: SODIUM CHLORIDE 0.9% INJ PRN (06:52)
[2018-06-13] MEDS: SYNTHROID IV SCH (06:52)
--- NOTE | 2018-06-13 07:26 | Diag Imaging Result Doc PS360 ---
CHEST-PORTABLE - 06/13/2018 INDICATION: resp failure COMPARISON: 06/12/2018 FINDINGS: There is a right PICC line in stable position. The catheter tip appears to be in the lower SVC. Stable nasogastric tube with the tip in the stomach. Stable bilateral upper lobe infiltrates/opacities. Heart size remains normal. IMPRESSION: No complication or change from prior. Electronically signed by Shashank Hall 06/13/2018 7:23 AM
[2018-06-13] MEDS: KEPPRA 1,500 MG in NS 100 ML IV SCH ×2 (08:52→15:59)
[2018-06-13] MEDS: LOVENOX SUBQ SCH ×2 (08:53→20:39)
[2018-06-13] MEDS: PEPCID IV SCH ×2 (08:53→20:36)
[2018-06-13] MEDS: SODIUM CHLORIDE 0.9% INJ SCH ×2 (08:53→20:36)
--- NOTE | 2018-06-13 09:56 | PROGRESS NOTE ---
DATE: 06/13/2018 CHIEF COMPLAINT: The patient is resting on his BiPAP at this time. Not make any movements, and seems to be asleep. OBJECTIVE: Blood pressure 97/61, respirations 13, pulse 74, and temperature 96.8 degrees Fahrenheit.HEENT: Normocephalic. EOMs intact. PERRLA. Throat clear. Lungs: Sound fairly clear to auscultation. Chest x-ray shows no new changes. Heart: Regular rate and rhythm without murmurs, gallops, or friction rubs. Abdomen: Soft. Active bowel sounds. No organomegaly or tenderness. Neurological: The patient is sleeping quietly at this point. No family members here today. It is my understanding that Bigg's father at another hospital either yesterday or last night. Family is probably busy with that situation right now. ASSESSMENT: 1. Respiratory arrest. 2. Pulmonary fibrosis. 3. Cardiac arrest. 4. Pneumonia. 5. Seizure disorder. 6. Encephalopathy. LABORATORY: Laboratory is fairly stable. Blood gas shows pH 7.38, pCO2 of 69, PO2 94 on the BiPAP with an FiO2 of 30%. Rest of lab work is fairly stable. PLAN: We will continue to support. cc: Sid Guerrero Jr, MD
--- NOTE | 2018-06-13 11:22 | PROGRESS NOTE ---
DATE: 06/13/2018 Bigg has not had a seizure recognized. Medicine doses are the same. This morning, he appeared to be asleep, but I was able to wake him easily. He seemed briefly alert and fixed his gaze on me, and seemed interested in my directions, but he did not communicate with me. I do not have any new suggestions today. Eventually, we will need to consider reducing at least one of his seizure medication doses. Thanks for asking Neurology to see Bigg. cc: MD Sid Bazan III, Jr, MD MTDD
[2018-06-14] MEDS: SOLU-MEDROL IV SCH ×3 (01:29→16:35)
[2018-06-14] MEDS: KEPPRA 1,500 MG in NS 100 ML IV SCH ×3 (01:29→15:25)
[2018-06-14] MEDS: ZOSYN 3.375 GM in NS 50 ML IV SCH ×4 (01:29→21:19)
[2018-06-14] MEDS: DUONEB (A & A) INH SCH ×6 (03:10→23:31)
[2018-06-14] MEDS: DEPACON 1,000 MG in NS 50 ML IV SCH ×4 (04:06→23:05)
[2018-06-14 05:03] LABS: ALLEN TEST YES; BLOOD TYPE ARTERIAL; HCO3-(ACT) 34.2 mmoll (20.0-26.0); METHB 1.5 % (0.0-1.5); O2(CT) 16.4 mL/dL (15.0-23.0); O2HB 95.4 % (95.0-99.0); PCO2(98.6) 50 mmHg (35-45); PO2(98.6) 152 mmHg (60-100); SAMPLE BLOOD; pH(98.6) 7.48 (7.35-7.45)
[2018-06-14 05:06] LABS: MODALITY BI PAP
[2018-06-14] MEDS: PATIENT'S OWN MED NG SCH ×3 (05:43→21:39)
[2018-06-14] MEDS: VANCOMYCIN 1,900 MG in NS 500 ML IV SCH ×2 (06:16→17:31)
[2018-06-14] MEDS: SODIUM CHLORIDE 0.9% INJ PRN (06:17)
[2018-06-14] MEDS: SYNTHROID IV SCH (06:17)
[2018-06-14 06:44] LABS: HEMATOCRIT 35.3 % (42.0-52.0); HEMOGLOBIN 11.9 g/dL (14.0-18.0); MCH 31.3 PG (27-31); MCHC 33.7 g/dL (33-37); MCV 92.9 FL (81-99); MPV 12.2 FL (7.4-10.4); RBC 3.8 XMIL (4.7-6.1); RDW 14.7 % (11.5-14.5); WBC 4.76 X1000 (4.8-10.8)
[2018-06-14 06:46] LABS: AGAP 8; ALB/GLOB RATIO 1.1; ALBUMIN 3.1 g/dL (3.5-5.0); ALKALINE PHOSPHATASE 148 U/L (32-122); BUN 15 mg/dL (8-22); CALCIUM 9.1 mg/dL (8.8-10.2); CHLORIDE 94 mmol/L (98-107); COSMO 272; CREATININE 0.2 mg/dL (0.7-1.2); ESTIMATED GFR > 60; GLUCOSE 119 mg/dL (70-104); GOT 15 U/L (10-34); GPT 7 U/L (10-44); POTASSIUM 3.6 mmol/L (3.5-5.1); SODIUM 135 mmol/L (136-145); TCO2 33 mmol/L (25-35); TOTAL BILIRUBIN 0.22 mg/dL (0.20-1.00); TOTAL PROTEIN 5.9 g/dL (6.3-8.3)
--- NOTE | 2018-06-14 07:24 | Diag Imaging Result Doc PS360 ---
CHEST-PORTABLE - 06/14/2018 INDICATION: resp failure COMPARISON: 06/13/2018 FINDINGS: Support lines and tubes are stable. Lung volumes are much lower. There is increasing central atelectasis. Otherwise stable bilateral upper lobe infiltrates. IMPRESSION: Lower lung volumes with increasing central atelectasis. Electronically signed by Shashank Hall 06/14/2018 7:22 AM
[2018-06-14] MEDS: PEPCID IV SCH ×2 (07:59→21:39)
[2018-06-14] MEDS: SODIUM CHLORIDE 0.9% INJ SCH ×2 (07:59→21:39)
[2018-06-14] MEDS: LOVENOX SUBQ SCH ×2 (08:00→21:38)
--- NOTE | 2018-06-14 09:12 | PROGRESS NOTE ---
DATE: 06/14/2018 SUBJECTIVE: The patient is not vocal. When I did walk in the room, he lifted his head up and looked right at me. He did not try to make any other comments or speak, did not move his arms. I asked him to squeeze my fingers with his left hand but he did not, however, he does look more alert. LABORATORY DATA: Laboratory shows white count of 4.76, hemoglobin 11.9. Blood gas 7.48, pCO2 50, PO2 152 on his BiPAP with 30% FiO2. Electrolytes were essentially normal. OBJECTIVE: Vital Signs: Blood pressure 113/77, respirations 17, pulse 86, temperature 97.7 degrees Fahrenheit. HEENT: Normocephalic. EOMs intact. PERRLA. Throat clear. Lungs: Sound fairly clear to auscultation. Chest x-ray looks about the same except for a little bit more central atelectasis. Heart: Regular rate and rhythm without murmurs, gallops, or friction rubs. Abdomen: Soft. Active bowel sounds. No megaly or tenderness. Neurologic: The patient did lift his head up to look at me, is not responding otherwise. ASSESSMENT: 1. Respiratory arrest. 2. Cardiac arrest. 3. Encephalopathy. 4. Seizure disorder. 5. Anemia, improving. PLAN: Continue support. Does show some improvement. cc: Sid Guerrero Jr, MD
--- NOTE | 2018-06-14 13:09 | PROGRESS NOTE ---
DATE: 06/14/2018 Bigg has not had any seizures recognized. He continues somnolent, sleeping most of the time, but he has been awake and briefly alert. He continues levetiracetam, divalproex, and carbamazepine at the same doses. I have not thought seizure medications were significantly contributing to his somnolence, but I will order levels checked today to make sure none of these levels have become toxic. No other suggestions right now. Thanks for asking Neurology to see Bigg. cc: MD Sid Bazan III, Jr, MD MTDD
[2018-06-15] MEDS: KEPPRA 1,500 MG in NS 100 ML IV SCH ×3 (00:28→16:00)
[2018-06-15] MEDS: ZOSYN 3.375 GM in NS 50 ML IV SCH ×4 (01:28→20:59)
[2018-06-15] MEDS: SOLU-MEDROL IV SCH ×3 (01:29→17:00)
[2018-06-15] MEDS: DUONEB (A & A) INH SCH ×5 (03:45→19:26)
[2018-06-15] MEDS: DEPACON 1,000 MG in NS 50 ML IV SCH ×4 (05:22→22:32)
[2018-06-15] MEDS: PATIENT'S OWN MED NG SCH ×3 (05:23→22:31)
[2018-06-15 05:39] LABS: ALLEN TEST YES; BE 11.2 mmoll (-3.0-3.0); BLOOD TYPE ARTERIAL; HCO3-(ACT) 33.6 mmoll (20.0-26.0); METHB 0.9 % (0.0-1.5); O2(CT) 20.9 mL/dL (15.0-23.0); O2HB 96.6 % (95.0-99.0); PO2(98.6) 112 mmHg (60-100); SAMPLE BLOOD; SAO2 99.7 % (95.0-100.0); THB 15.3 g/dL (11.5-17.4); pH(98.6) 7.37 (7.35-7.45)
[2018-06-15 05:45] LABS: MODALITY CANNULA; PCO2(98.6) 69 mmHg (35-45)
[2018-06-15 05:56] LABS: HEMATOCRIT 35.7 % (42.0-52.0); MCH 30.7 PG (27-31); MCHC 33.6 g/dL (33-37); MCV 91.3 FL (81-99); MPV 11.9 FL (7.4-10.4); RBC 3.91 XMIL (4.7-6.1); RDW 14.7 % (11.5-14.5); WBC 5.55 X1000 (4.8-10.8)
[2018-06-15] MEDS: VANCOMYCIN 1,900 MG in NS 500 ML IV SCH ×2 (06:11→18:10)
[2018-06-15] MEDS: SYNTHROID IV SCH (06:16)
[2018-06-15 06:43] LABS: AGAP 7; ALB/GLOB RATIO 1.1; ALBUMIN 3.1 g/dL (3.5-5.0); ALKALINE PHOSPHATASE 145 U/L (32-122); BUN 20 mg/dL (8-22); CALCIUM 8.9 mg/dL (8.8-10.2); CHLORIDE 96 mmol/L (98-107); COSMO 281; CREATININE 0.2 mg/dL (0.7-1.2); ESTIMATED GFR > 60; GLUCOSE 118 mg/dL (70-104); GOT 12 U/L (10-34); GPT 6 U/L (10-44); POTASSIUM 4.4 mmol/L (3.5-5.1); SODIUM 139 mmol/L (136-145); TCO2 36 mmol/L (25-35); TOTAL BILIRUBIN 0.23 mg/dL (0.20-1.00); TOTAL PROTEIN 5.9 g/dL (6.3-8.3)
--- NOTE | 2018-06-15 07:56 | Diag Imaging Result Doc PS360 ---
EXAM: CHEST-PORTABLE INDICATION: resp failure TECHNIQUE: One view COMPARISON: 06/14/2018 FINDINGS: Support tubes and lines are in stable positions. Upper lobe infiltrates bilaterally and central atelectasis are essentially stable. No new consolidation is identified. Cardiac silhouette is stable. IMPRESSION: Stable chest. Electronically signed by Leon Vicente 06/15/2018 7:53 AM
[2018-06-15] MEDS: PEPCID IV SCH ×2 (08:30→21:00)
[2018-06-15] MEDS: SODIUM CHLORIDE 0.9% INJ SCH ×2 (09:00→21:00)
[2018-06-15] MEDS: LOVENOX SUBQ SCH ×2 (09:00→20:59)
--- NOTE | 2018-06-15 11:27 | PROGRESS NOTE ---
DATE: 06/15/2018 SUBJECTIVE: A 38-year-old white male was transferred out of the ICU after respiratory/cardiac arrest, a very complex history. Interval history was reviewed. Seen by multiple consultants. He is off of ventilator support. He is in position. Very cachectic. No history was obtained. Most of the history was obtained from the prior records and the nursing care. PAST MEDICAL HISTORY: Reviewed. PAST SURGICAL HISTORY: Reviewed. MEDICATIONS: Reviewed. ALLERGIES: Not known. OBJECTIVE: Temperature 97 degrees, pulse 89, blood pressure 144/84, and 2 L nasal cannula 100%. He is not in respiratory distress. He is on oxygen. NG tube was seen. He is in position on the left side.Chest: Bilateral air entry. Heart: Distant heart sounds. Abdomen: Belly is soft, nontender. Beavers was placed. Skin: He has pressure ulcers on the sacrum with DuoDERM patch noted. PICC line was seen on the right side of the arm. INVESTIGATIONS: CBC: White cell count 5.5, hematocrit 35.7, and platelets 99,000. ABG: pH is 7.37, pCO2 69, and PO2 112. SMA 7. Sodium 139, potassium 4.4, chloride 96, BUN 20, creatinine 0.2, and glucose 118. LFTs were normal. Valproic acid 70.90. Blood cultures were negative. Urine cultures were negative. Chest x-ray: Stable chest. Stable infiltrates bilaterally. ASSESSMENT AND PLAN: 1. History of traumatic brain injury with seizures. 2. Hypothyroidism. 3. Aspiration pneumonia. PLAN OF CARE: 1. Continue oxygen. 2. Nutritional support through the NG tube. 3. Seizures on IV Keppra 1500 q.8 and IV valproic acid 1000 mg q.6. 4. Aspiration pneumonia. IV Zosyn and IV vancomycin. 5. Deep venous thrombosis prophylaxis with Lovenox. GI prophylaxis with IV Pepcid. 6. Status post PICC line on the right side. 7. Stage I ulcer on DuoDERM patch. 8. Thrombocytopenia stable slowly. 9. Review out of the bed with physical therapy and continue present treatment. LEVEL OF DOCUMENTATION: 35 minutes. cc: MD Sid Drew Jr, MD
[2018-06-16] MEDS: SOLU-MEDROL IV SCH ×3 (00:24→16:25)
[2018-06-16] MEDS: KEPPRA 1,500 MG in NS 100 ML IV SCH ×3 (00:24→15:05)
[2018-06-16] MEDS: ZOSYN 3.375 GM in NS 50 ML IV SCH ×4 (01:35→21:26)
[2018-06-16] MEDS: DUONEB (A & A) INH SCH ×6 (04:34→23:44)
[2018-06-16] MEDS: PATIENT'S OWN MED NG SCH ×3 (05:12→23:02)
[2018-06-16] MEDS: DEPACON 1,000 MG in NS 50 ML IV SCH ×4 (05:12→23:02)
[2018-06-16] MEDS: VANCOMYCIN 1,900 MG in NS 500 ML IV SCH ×2 (05:12→17:58)
[2018-06-16 05:49] LABS: ALLEN TEST YES; BE 14.4 mmoll (-3.0-3.0); BLOOD TYPE ARTERIAL; HCO3-(ACT) 36.1 mmoll (20.0-26.0); METHB 1.1 % (0.0-1.5); O2(CT) 16.3 mL/dL (15.0-23.0); O2HB 96.3 % (95.0-99.0); PO2(98.6) 128 mmHg (60-100); SAMPLE BLOOD; SAO2 99.4 % (95.0-100.0); THB 11.9 g/dL (11.5-17.4)
[2018-06-16 05:51] LABS: HEMATOCRIT 35.9 % (42.0-52.0); HEMOGLOBIN 12.2 g/dL (14.0-18.0); MCH 30.7 PG (27-31); MCV 90.2 FL (81-99); RBC 3.98 XMIL (4.7-6.1); RDW 14.6 % (11.5-14.5); WBC 6.8 X1000 (4.8-10.8)
[2018-06-16 05:55] LABS: PCO2(98.6) 68 mmHg (35-45)
[2018-06-16 05:56] LABS: MODALITY CANNULA
[2018-06-16 06:17] LABS: AGAP 8; ALBUMIN 3.1 g/dL (3.5-5.0); ALKALINE PHOSPHATASE 145 U/L (32-122); BUN 16 mg/dL (8-22); CALCIUM 9.3 mg/dL (8.8-10.2); CHLORIDE 97 mmol/L (98-107); COSMO 282; CREATININE 0.2 mg/dL (0.7-1.2); ESTIMATED GFR > 60; GLUCOSE 130 mg/dL (70-104); GOT 14 U/L (10-34); GPT 7 U/L (10-44); POTASSIUM 4.1 mmol/L (3.5-5.1); SODIUM 140 mmol/L (136-145); TCO2 35 mmol/L (25-35); TOTAL BILIRUBIN 0.26 mg/dL (0.20-1.00); TOTAL PROTEIN 6.1 g/dL (6.3-8.3)
[2018-06-16] MEDS: SYNTHROID IV SCH (06:24)
[2018-06-16] MEDS: SODIUM CHLORIDE 0.9% INJ SCH ×2 (09:06→21:26)
[2018-06-16] MEDS: LOVENOX SUBQ SCH ×2 (09:06→21:25)
[2018-06-16] MEDS: PEPCID IV SCH ×2 (09:06→21:26)
--- NOTE | 2018-06-16 13:47 | PROGRESS NOTE ---
DATE: 06/16/2018 SUBJECT: The patient is resting. The patient's mom was at bedside as well as all the family members visiting today. The patient's mother is very attentive, is sleeping. A lot of secretions were suctioned out and he is not able to converse and follow with verbal commands. He is off vent. PHYSICAL EXAMINATION: Temperature is 97.3, pulse 79, blood pressure is 110/72, 2 L nasal cannula 100%. Extremely cachectic and the NG tube was seen.Chest: Some scattered rhonchi. Distant heart sounds. Belly: Soft, scaphoid, had a PICC line on the right side noted. He has a DuoDERM patch in the back of the sacral area. Is contracted. LABS: CBC: White cell count 6.8, hematocrit 35.9, platelets 108,000. ABG, pH is 7.40, pCO2 68, PO2 128 on 28 L. SMA 12, sodium 140, potassium 4.1, chloride 97, BUN 16, creatinine 0.2, glucose 130. Liver function tests were normal and albumin levels 3.1. Blood cultures, urine cultures are negative. ASSESSMENT AND PLAN: 1. 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 2. Seizure disorder, stable. 3. Aspiration pneumonia. 4. Hypothyroidism. 5. Deconditioning. PLAN OF CARE: Continue on oxygen 2 L. Nutrition support through the NG tube. Seizures on IV Keppra 1500 q.8 IV valproic acid 1000 q.6, aspiration pneumonia on IV Zosyn, IV vancomycin. DVT prophylaxis with Lovenox. GI prophylaxis with IV Pepcid. Status post PICC line on the right side, pressure sores. Continue on Egg crate mattress and DuoDERM patch. Thrombocytopenia stable. Continue suctioning as needed. Will repeat the labs, ABG and chest x-ray in the morning. Discussed the plan of care with mother at bedside and Dr. Guerrero is going to follow up. LEVEL OF DOCUMENTATION: 25 minutes. cc: MD Sid Drew Jr, MD MTDD
[2018-06-17] MEDS: KEPPRA 1,500 MG in NS 100 ML IV SCH ×3 (00:14→15:17)
[2018-06-17] MEDS: ZOSYN 3.375 GM in NS 50 ML IV SCH ×4 (02:12→20:50)
[2018-06-17] MEDS: SOLU-MEDROL IV SCH ×3 (02:13→15:59)
[2018-06-17] MEDS: DUONEB (A & A) INH SCH ×6 (03:44→23:40)
[2018-06-17 04:42] LABS: ALLEN TEST YES; BE 12.8 mmoll (-3.0-3.0); BLOOD TYPE ARTERIAL; HCO3-(ACT) 34.9 mmoll (20.0-26.0); METHB 1.4 % (0.0-1.5); O2(CT) 16.7 mL/dL (15.0-23.0); O2HB 95.3 % (95.0-99.0); PO2(98.6) 100 mmHg (60-100); SAMPLE BLOOD; SAO2 98.9 % (95.0-100.0); THB 12.4 g/dL (11.5-17.4)
[2018-06-17 04:46] LABS: MODALITY CANNULA; PCO2(98.6) 65 mmHg (35-45)
[2018-06-17] MEDS: VANCOMYCIN 1,900 MG in NS 500 ML IV SCH ×2 (05:42→18:20)
[2018-06-17] MEDS: DEPACON 1,000 MG in NS 50 ML IV SCH ×4 (05:42→22:18)
[2018-06-17] MEDS: PATIENT'S OWN MED NG SCH ×3 (05:43→22:17)
[2018-06-17 05:59] LABS: HEMOGLOBIN 11.8 g/dL (14.0-18.0); MCHC 33.7 g/dL (33-37); MCV 91.9 FL (81-99); MPV 12.3 FL (7.4-10.4); RBC 3.81 XMIL (4.7-6.1); RDW 14.7 % (11.5-14.5); WBC 6.92 X1000 (4.8-10.8)
[2018-06-17] MEDS: SYNTHROID IV SCH (06:07)
[2018-06-17 06:31] LABS: AGAP 9; ALB/GLOB RATIO 1.2; ALBUMIN 3.2 g/dL (3.5-5.0); ALKALINE PHOSPHATASE 141 U/L (32-122); BUN 16 mg/dL (8-22); CALCIUM 9.1 mg/dL (8.8-10.2); CHLORIDE 96 mmol/L (98-107); COSMO 284; CREATININE 0.2 mg/dL (0.7-1.2); ESTIMATED GFR > 60; GLUCOSE 153 mg/dL (70-104); GOT 14 U/L (10-34); GPT 7 U/L (10-44); SODIUM 140 mmol/L (136-145); TCO2 35 mmol/L (25-35); TOTAL BILIRUBIN 0.22 mg/dL (0.20-1.00); TOTAL PROTEIN 5.9 g/dL (6.3-8.3)
--- NOTE | 2018-06-17 06:33 | Diag Imaging Result Doc PS360 ---
EXAM: CHEST-1 VIEW HISTORY: SOB TECHNIQUE: Portable chest single view COMPARISON: 06/15/2018 FINDINGS: No change in the right-sided PICC line or nasogastric tube. The lungs are well expanded. No cardiomegaly. No pleural effusions identified. There are increased interstitial markings throughout both lungs. These may be slightly less dense in the left lung. IMPRESSION: Slight interval improvement. Electronically signed by Man Benavides 06/17/2018 6:30 AM
[2018-06-17] MEDS: LOVENOX SUBQ SCH ×2 (08:10→21:47)
[2018-06-17] MEDS: PEPCID IV SCH ×2 (08:10→21:47)
[2018-06-17] MEDS: SODIUM CHLORIDE 0.9% INJ SCH ×2 (08:11→21:47)
--- NOTE | 2018-06-17 08:58 | PROGRESS NOTE ---
DATE: 06/17/2018 SUBJECTIVE: The patient is not communicating. He is not lifting his hands, but he is moving his head back and forth. He follows you with his eyes. When I asked him if he was hurting anywhere, he shook his head no so I think he is doing much better. Chest x-ray shows some more improvement of the infiltrates. OBJECTIVE: Vital Signs: Blood pressure 131/82, respirations 22, pulse 93 and regular, and temperature 98.8 degrees Fahrenheit. HEENT: Normocephalic. EOMs intact. PERRLA. Throat clear. Lungs: Sound clear to auscultation and percussion without rhonchi, rales, or wheezes. Heart: Regular rate and rhythm without murmurs, gallops, or friction rubs. Abdomen: Soft. Active bowel sounds. No organomegaly or tenderness. Neurological: The patient is more alert. LABORATORY: White count 6920, hemoglobin 11.8. Blood gas shows pH 7.40, pCO2 of 65, PO2 of 100 on 28% per nasal cannula. Apparently, he has not used the BiPAP for the last couple of nights. The patient is still very weak. Electrolytes essentially normal. Albumin is 3.2. Total protein 5.9. We will continue to support, but patient has made improvement. ASSESSMENT: 1. Respiratory distress. 2. Cardiac arrest. 3. Seizure disorder. 4. Pneumonia. 5. Hypothyroidism. 6. Deconditioning. 7. Encephalopathy. PLAN: Continue treatment. cc: Sid Guerrero Jr, MD
--- NOTE | 2018-06-17 17:05 | PROGRESS NOTE ---
DATE: 06/17/2018 LOCATION: [facility] bed 14. SUBJECTIVE: Mr. Dean has not had a seizure recognized clinically in the last few weeks. He appears to be tolerating current management with levetiracetam 1500 mg IV q.8 hours, valproic acid 1000 mg IV q.6 hours, carbamazepine 200 mg 2 tablets per dose (400 mg dose) mid day and 3 tablets per dose (600 mg dose) morning and night (total carbamazepine 1600 mg daily). Levels at the end of last week were carbamazepine 5.5, levetiracetam 20.1, and valproic acid 70.9. On my rounds, Bigg appeared awake. He seemed alert, but he was not attentive to me. He seemed to make eye contact very briefly, but he did not follow me with his gaze from one side of the bed to the other. He did not communicate with sign or other gestures. ASSESSMENT AND PLAN: I do not have any new suggestion from Neurology standpoint today. Seizures seem to be well controlled. He is much more consistently alert than a week or so ago, but not as attentive as I would like. Always, Bigg has been very slow to resolve his postictal state and to completely recover alertness after a serious medical illness. This time, there was cardiac arrest, and recovery may not be complete. I did not see family today, but they have been made aware of this possibility in recent weeks. We might consider repeating his EEG later. I do not think we need to make any other changes right now. Thanks for asking Neurology to follow Bigg. cc: MD Sid Bazan III, Jr, MD MTDD
[2018-06-18] MEDS: KEPPRA 1,500 MG in NS 100 ML IV SCH ×4 (00:11→23:24)
[2018-06-18] MEDS: SOLU-MEDROL IV SCH ×4 (00:12→16:04)
[2018-06-18] MEDS: ZOSYN 3.375 GM in NS 50 ML IV SCH ×4 (01:04→19:51)
[2018-06-18] MEDS: DUONEB (A & A) INH SCH ×6 (03:30→23:30)
[2018-06-18] MEDS: DEPACON 1,000 MG in NS 50 ML IV SCH ×4 (04:57→23:24)
[2018-06-18] MEDS: VANCOMYCIN 1,900 MG in NS 500 ML IV SCH ×2 (05:03→17:14)
[2018-06-18] MEDS: PATIENT'S OWN MED NG SCH ×3 (05:04→23:25)
[2018-06-18 05:54] LABS: HEMATOCRIT 34.4 % (42.0-52.0); HEMOGLOBIN 11.6 g/dL (14.0-18.0); MCH 31.5 PG (27-31); MCHC 33.7 g/dL (33-37); MCV 93.5 FL (81-99); MPV 12.3 FL (7.4-10.4); RBC 3.68 XMIL (4.7-6.1); RDW 14.9 % (11.5-14.5); WBC 5.79 X1000 (4.8-10.8)
[2018-06-18] MEDS: SYNTHROID IV SCH (06:00)
[2018-06-18] MEDS: SODIUM CHLORIDE 0.9% INJ PRN (06:00)
[2018-06-18 06:30] LABS: AGAP 7; ALB/GLOB RATIO 1.4; ALBUMIN 3.3 g/dL (3.5-5.0); ALKALINE PHOSPHATASE 131 U/L (32-122); BUN 19 mg/dL (8-22); CALCIUM 8.7 mg/dL (8.8-10.2); CHLORIDE 96 mmol/L (98-107); COSMO 281; CREATININE 0.2 mg/dL (0.7-1.2); ESTIMATED GFR > 60; GLUCOSE 112 mg/dL (70-104); GOT 13 U/L (10-34); GPT 7 U/L (10-44); POTASSIUM 4.4 mmol/L (3.5-5.1); SODIUM 139 mmol/L (136-145); TCO2 36 mmol/L (25-35); TOTAL BILIRUBIN 0.22 mg/dL (0.20-1.00); TOTAL PROTEIN 5.6 g/dL (6.3-8.3)
[2018-06-18] MEDS: SODIUM CHLORIDE 0.9% INJ SCH ×3 (07:53→20:01)
[2018-06-18] MEDS: PEPCID IV SCH ×3 (07:53→20:00)
[2018-06-18] MEDS: LOVENOX SUBQ SCH ×3 (07:53→20:00)
--- NOTE | 2018-06-18 08:52 | PROGRESS NOTE ---
DATE: 06/18/2018 SUBJECTIVE: The patient does look at me when I call his name. I asked him if he was short of breath and he shook his head no. I asked him if he was hurting anywhere and he shook his head no. So I do think he is understanding things now. He is just not quite as responsive and not trying to use his hands to talk like he used to do. OBJECTIVE: Vitals: Blood pressure is 117/78, respirations 18, pulse 92, temperature 98.3 degrees Fahrenheit. HEENT: Normocephalic. EOMS intact. PERRLA. Throat clear. Lungs: Fairly clear to auscultation. Heart: Regular rate and rhythm without murmurs, gallops, friction rubs. Abdomen: Soft. Active bowel sounds. No organomegaly or tenderness. Neurological: The patient is more alert, but not back to baseline. ASSESSMENT: 1. Respiratory arrest. 2. Cardiac arrest. 3. Seizure disorder. He has shown no more seizures in the last several days. 4. Pneumonia. 5. Encephalopathy. PLAN: We will continue to support. I do think he is making slow progress. cc: Sid Guerrero Jr, MD
--- NOTE | 2018-06-18 12:46 | PROGRESS NOTE ---
DATE: 06/18/2018 Bigg has not had a seizure. Mother reports that he was awake and alert part of the day yesterday. He has not been communicating with sign at his baseline level. He seems quickly exhausted after brief periods of alertness. During my time at the bedside today, he seemed to be sleeping peacefully. I did not attempt to disturb his sleep. I reviewed seizure management with mother at the bedside. I do not think we are seeing significant toxicity from these medicines and I do not think medicines are responsible for his somnolence. However, in light of apparent good seizure control now firmly established now, I think we can consider reducing his seizure medicine load soon. No immediate suggestions today. Thanks for asking neurology to follow Bigg. cc: MD Sid Bazan III, Jr, MD MTDD
[2018-06-19] MEDS: SOLU-MEDROL IV SCH ×3 (00:07→16:58)
[2018-06-19] MEDS: ZOSYN 3.375 GM in NS 50 ML IV SCH ×4 (01:44→20:03)
[2018-06-19] MEDS: DUONEB (A & A) INH SCH ×6 (03:30→23:21)
[2018-06-19] MEDS: DEPACON 1,000 MG in NS 50 ML IV SCH ×4 (04:54→23:52)
[2018-06-19] MEDS: VANCOMYCIN 1,900 MG in NS 500 ML IV SCH ×2 (05:24→17:31)
[2018-06-19] MEDS: PATIENT'S OWN MED NG SCH ×3 (05:24→21:23)
[2018-06-19 05:38] LABS: ALLEN TEST YES; BE 11.2 mmoll (-3.0-3.0); BLOOD TYPE ARTERIAL; HCO3-(ACT) 33.7 mmoll (20.0-26.0); METHB 0.7 % (0.0-1.5); O2(CT) 14.9 mL/dL (15.0-23.0); O2HB 96.3 % (95.0-99.0); PO2(98.6) 96 mmHg (60-100); SAMPLE BLOOD; SAO2 99.2 % (95.0-100.0); THB 10.9 g/dL (11.5-17.4); pH(98.6) 7.34 (7.35-7.45)
[2018-06-19 05:41] LABS: MODALITY CANNULA; PCO2(98.6) 73 mmHg (35-45)
[2018-06-19 05:50] LABS: HEMATOCRIT 34.2 % (42.0-52.0); HEMOGLOBIN 11.4 g/dL (14.0-18.0); MCHC 33.3 g/dL (33-37); MCV 92.9 FL (81-99); MPV 12.3 FL (7.4-10.4); RBC 3.68 XMIL (4.7-6.1); RDW 14.9 % (11.5-14.5); WBC 5.9 X1000 (4.8-10.8)
[2018-06-19] MEDS: SYNTHROID IV SCH ×2 (05:58→06:09)
[2018-06-19] MEDS: SODIUM CHLORIDE 0.9% INJ PRN (05:58)
[2018-06-19 06:58] LABS: AGAP 7; ALB/GLOB RATIO 1.4; ALBUMIN 3.2 g/dL (3.5-5.0); ALKALINE PHOSPHATASE 127 U/L (32-122); BUN 16 mg/dL (8-22); CALCIUM 8.9 mg/dL (8.8-10.2); CHLORIDE 95 mmol/L (98-107); COSMO 276; CREATININE 0.2 mg/dL (0.7-1.2); ESTIMATED GFR > 60; GLUCOSE 111 mg/dL (70-104); GOT 13 U/L (10-34); GPT 7 U/L (10-44); POTASSIUM 4.4 mmol/L (3.5-5.1); SODIUM 137 mmol/L (136-145); TCO2 35 mmol/L (25-35); TOTAL BILIRUBIN 0.22 mg/dL (0.20-1.00); TOTAL PROTEIN 5.5 g/dL (6.3-8.3)
[2018-06-19] MEDS: LOVENOX SUBQ SCH ×2 (08:25→20:55)
[2018-06-19] MEDS: KEPPRA 1,500 MG in NS 100 ML IV SCH (08:25)
[2018-06-19] MEDS: SODIUM CHLORIDE 0.9% INJ SCH ×2 (08:26→20:55)
[2018-06-19] MEDS: PEPCID IV SCH ×2 (08:26→20:55)
--- NOTE | 2018-06-19 08:56 | PROGRESS NOTE ---
DATE: 06/19/2018 SUBJECTIVE: The patient is alert, but not very responsive. I asked him questions today and he did not respond at all. OBJECTIVE: Vitals: Blood pressure is 113/73, respirations 15, pulse 62, temperature 98 degrees Fahrenheit. HEENT: Normocephalic. EOMS intact. PERRLA. Throat clear. Lungs: Sound clear to auscultation without rhonchi, rales, or wheezes. Heart: Regular rate and rhythm without murmurs, gallops, friction rubs. Abdomen: Soft. Active bowel sounds. No organomegaly or tenderness. Neurological: Unchanged, still somewhat lethargic and not back to baseline. How much he will regain is unclear. The patient still has a feeding tube. ASSESSMENT: 1. Respiratory arrest. 2. Cardiac arrest. 3. Seizure disorder. 4. Altered mental status. 5. Pneumonia. 6. Chronic fibrotic lung disease. 7. Anemia. Please note CO2 has risen to 73, but otherwise blood gases are relatively stable. PLAN: We will need to consider whether he needs a PEG or not if he does not starting soon. Dr. Rader is considering decreasing some of his seizure medicines to see if he will wake up a little bit more. Otherwise, we will continue with same care. cc: Sid Guerrero Jr, MD
--- NOTE | 2018-06-19 11:00 | PROGRESS NOTE ---
DATE: 06/19/2018 SUBJECTIVE: Mr. Dean has not had clinically apparent seizure in a few weeks. He continues somnolent. I do not see anything new neurologically. Will discontinue levetiracetam, continue divalproex and carbamazepine, which were his pre- admission seizure medicines. I hope we will see him more alert soon. We will need to watch carefully for seizure. Thanks for asking Neurology to see Bigg. cc: MD Sid Bazan III, Jr, MD
[2018-06-20] MEDS: SOLU-MEDROL IV SCH ×3 (00:11→17:47)
[2018-06-20] MEDS: ZOSYN 3.375 GM in NS 50 ML IV SCH ×4 (00:59→21:13)
[2018-06-20] MEDS: DUONEB (A & A) INH SCH ×6 (03:23→23:35)
[2018-06-20] MEDS: DEPACON 1,000 MG in NS 50 ML IV SCH ×4 (04:21→22:07)
[2018-06-20 04:58] LABS: ALLEN TEST YES; BE 10.4 mmoll (-3.0-3.0); BLOOD TYPE ARTERIAL; O2(CT) 20.2 mL/dL (15.0-23.0); O2HB 96.4 % (95.0-99.0); PO2(98.6) 124 mmHg (60-100); SAMPLE BLOOD; SAO2 99.5 % (95.0-100.0); THB 14.8 g/dL (11.5-17.4); pH(98.6) 7.38 (7.35-7.45)
[2018-06-20] MEDS: PATIENT'S OWN MED NG SCH ×3 (05:01→21:13)
[2018-06-20] MEDS: VANCOMYCIN 1,900 MG in NS 500 ML IV SCH ×2 (05:01→17:41)
[2018-06-20 05:07] LABS: MODALITY BI PAP; PCO2(98.6) 65 mmHg (35-45)
[2018-06-20 05:53] LABS: HEMATOCRIT 34.5 % (42.0-52.0); HEMOGLOBIN 11.6 g/dL (14.0-18.0); MCH 31.2 PG (27-31); MCHC 33.6 g/dL (33-37); MCV 92.7 FL (81-99); MPV 12.3 FL (7.4-10.4); RBC 3.72 XMIL (4.7-6.1); RDW 14.9 % (11.5-14.5); WBC 5.9 X1000 (4.8-10.8)
[2018-06-20] MEDS: SYNTHROID IV SCH (06:01)
[2018-06-20] MEDS: SODIUM CHLORIDE 0.9% INJ PRN (06:01)
[2018-06-20 06:06] LABS: AGAP 6; ALB/GLOB RATIO 1.3; ALBUMIN 3.3 g/dL (3.5-5.0); ALKALINE PHOSPHATASE 125 U/L (32-122); BUN 15 mg/dL (8-22); CALCIUM 9.2 mg/dL (8.8-10.2); CHLORIDE 93 mmol/L (98-107); COSMO 272; CREATININE 0.2 mg/dL (0.7-1.2); ESTIMATED GFR > 60; GLUCOSE 112 mg/dL (70-104); GOT 12 U/L (10-34); GPT 7 U/L (10-44); POTASSIUM 4.6 mmol/L (3.5-5.1); SODIUM 135 mmol/L (136-145); TCO2 36 mmol/L (25-35); TOTAL BILIRUBIN 0.19 mg/dL (0.20-1.00); TOTAL PROTEIN 5.9 g/dL (6.3-8.3)
[2018-06-20] MEDS: LOVENOX SUBQ SCH ×2 (08:46→21:13)
[2018-06-20] MEDS: PEPCID IV SCH ×2 (08:49→21:13)
--- NOTE | 2018-06-20 08:56 | PROGRESS NOTE ---
DATE: 06/20/2018 SUBJECTIVE: The patient is awake and opening his eyes, but he is not responding to me. I asked him to squeeze my fingers, and he did not do that at all. I lifted his arm up and dropped it, and he had no tone there. He did not catch his arm, right or left. He does move his head and neck a little bit, but does not seem purposeful. OBJECTIVE: Vital Signs: Blood pressure is 114/82, respirations 19, pulse 83, temperature 97.8 degrees Fahrenheit. HEENT: Normocephalic. PERRLA. Throat clear. Lungs: Sound fairly clear to auscultation. Heart: Regular rate and rhythm without murmurs, gallops, friction rubs. Abdomen: Soft. Active bowel sounds. No organomegaly or tenderness. Neurological: The patient is not really responsive, but he is awake. His Keppra has been stopped to see if he would wake up a little bit more. I am concerned that his arms seem flaccid and he does not try to lift either one. ASSESSMENT: 1. Respiratory arrest. 2. Cardiac arrest. 3. Poor nutrition. 4. Pneumonia. 5. Fibrotic lung disease. 6. Hypothyroidism. 7. Seizure disorder. 8. Nutritional problems. 9. Chronic encephalopathy. PLAN: Will continue to support. Will see if stopping the Keppra makes any improvement. cc: Sid Guerrero Jr, MD
[2018-06-20] MEDS: SODIUM CHLORIDE 0.9% INJ SCH ×2 (12:15→21:13)
[2018-06-20] MEDS: CALMOSEPTINE OINTMENT TOP PRN (22:05)
[2018-06-21] MEDS: ZOSYN 3.375 GM in NS 50 ML IV SCH ×4 (01:35→21:12)
[2018-06-21] MEDS: SOLU-MEDROL IV SCH ×3 (01:35→17:14)
[2018-06-21] MEDS: ATIVAN IV PRN (02:41)
[2018-06-21] MEDS: DUONEB (A & A) INH SCH ×6 (02:50→23:15)
[2018-06-21 03:30] LABS: ALLEN TEST YES; BE 11.8 mmoll (-3.0-3.0); BLOOD TYPE ARTERIAL; HCO3-(ACT) 34.1 mmoll (20.0-26.0); O2(CT) 16.1 mL/dL (15.0-23.0); O2HB 96.8 % (95.0-99.0); PO2(98.6) 121 mmHg (60-100); SAMPLE BLOOD; SAO2 99.4 % (95.0-100.0); THB 11.7 g/dL (11.5-17.4); pH(98.6) 7.41 (7.35-7.45)
[2018-06-21 03:43] LABS: MODALITY CANNULA; PCO2(98.6) 61 mmHg (35-45)
[2018-06-21 05:36] LABS: HEMATOCRIT 33.3 % (42.0-52.0); HEMOGLOBIN 11.3 g/dL (14.0-18.0); MCH 31.2 PG (27-31); MCHC 33.9 g/dL (33-37); MPV 12.1 FL (7.4-10.4); RBC 3.62 XMIL (4.7-6.1); RDW 14.8 % (11.5-14.5); WBC 5.43 X1000 (4.8-10.8)
[2018-06-21] MEDS: SYNTHROID IV SCH ×2 (05:38→06:29)
[2018-06-21] MEDS: VANCOMYCIN 1,900 MG in NS 500 ML IV SCH ×2 (05:38→18:33)
[2018-06-21] MEDS: DEPACON 1,000 MG in NS 50 ML IV SCH ×4 (05:38→23:36)
[2018-06-21] MEDS: PATIENT'S OWN MED NG SCH ×3 (05:39→21:14)
[2018-06-21 06:07] LABS: AGAP 9; ALB/GLOB RATIO 1.1; ALBUMIN 3.1 g/dL (3.5-5.0); ALKALINE PHOSPHATASE 118 U/L (32-122); BUN 12 mg/dL (8-22); CALCIUM 9.2 mg/dL (8.8-10.2); CHLORIDE 92 mmol/L (98-107); COSMO 272; CREATININE 0.2 mg/dL (0.7-1.2); ESTIMATED GFR > 60; GLUCOSE 137 mg/dL (70-104); GOT 16 U/L (10-34); GPT 8 U/L (10-44); POTASSIUM 4.2 mmol/L (3.5-5.1); SODIUM 135 mmol/L (136-145); TCO2 34 mmol/L (25-35); TOTAL BILIRUBIN 0.16 mg/dL (0.20-1.00); TOTAL PROTEIN 5.9 g/dL (6.3-8.3)
[2018-06-21] MEDS: PEPCID IV SCH ×2 (09:07→21:15)
[2018-06-21] MEDS: SODIUM CHLORIDE 0.9% INJ SCH ×2 (09:09→21:15)
[2018-06-21] MEDS: LOVENOX SUBQ SCH ×2 (09:12→21:15)
--- NOTE | 2018-06-21 10:27 | PROGRESS NOTE ---
DATE: 06/21/2018 SUBJECTIVE: The patient is awake and looks around. I am not sure that he is very purposeful in where he looks at this time. His mother was in the room, and we had a long discussion about possibly putting a gastrostomy tube in. We have been waiting over the last day or 2 to see if he would perk up a little bit after stopping his Keppra. I do not see much change at this time. He does respond if I touch his feet by pulling up at the knee and hip just slightly. He has pulled up with his arms just slightly or gone back and forth with them, but when I hold them in the air and drop them he just drops like weight. OBJECTIVE: Blood pressure 111/71, respirations 16, pulse 87, and temperature 98.2 degrees Fahrenheit. Oxygen saturation is 100% on 2 L per nasal cannula.HEENT: Normocephalic. EOMS intact. PERRLA. Throat clear. Lungs: Sound clear to auscultation. Heart: Regular rate and rhythm without murmurs, gallops, or friction rubs. Abdomen: Soft. Active bowel sounds. No organomegaly or tenderness. Neurological: As above. He does look around a little bit and keeps his eyes open, but not nearly as purposeful as he was before all of this. LABORATORY: White count 5430, hemoglobin 11.3. Blood gas has a pH 7.41, pCO2 61, PO2 of 121 on 28% FiO2. Rest of chemistry is stable. ASSESSMENT: 1. Respiratory arrest. 2. Cardiac arrest. 3. Fibrotic lung disease. 4. Seizure disorder. 5. Encephalopathy which may be worse after 1 and 2. 6. Nutritional problems. PLAN: Continue support. cc: Sid Guerrero Jr, MD
--- NOTE | 2018-06-21 15:20 | PROGRESS NOTE ---
DATE: 06/21/2018 Bigg has continued gradually more alert in appearance, but he has not been communicating. This morning, he looked at me, fixed his gaze on me, but did not smile and did not communicate. His levetiracetam was stopped a few days ago. He continues carbamazepine 600 mg in the morning, 400 mg midday, 600 mg in the evening (1600 mg daily) per NG, and valproic acid 1000 mg q.6 hours (4 g daily). At baseline, his divalproex dose had been 1000 mg t.i.d. (3000 mg daily). He generally had valproic acid levels 50s-60s on the baseline dose. Recent valproic acid levels have been 70s. I do not think the higher valproate level is sufficient to completely explain continued lethargy. If we see continued good seizure control, we can reduce the valproic acid dose. When he is swallowing consistently, we can switch both medicines back to p.o. route. No urgent suggestion today. Thanks for asking Neurology to see Bigg. cc: MD Sid Bazan III, Jr, MD MTDD
--- NOTE | 2018-06-21 19:36 | PULMONOLOGY PROGRESS NOTE ---
DATE: 06/21/2018 SUBJECTIVE: The patient's head is bent down. When his name is called, he briefly opens his eyes but closes eyes again. He is mildly flaccid. He did not move during the evaluation or discussion with his mother. OBJECTIVE: Vital Signs: The patient has been afebrile for the last 24 hours. Blood pressure 121/75, heart rate 88, respiratory rate 15, oxygen saturation 100% on 2 L per nasal cannula. HEENT: Pupils are equal and reactive. Oropharynx appears clear. Neck: Supple. Chest: Relatively clear compared to previous examinations. Cardiac: S1, S2. Abdomen: Soft. Extremities: Reveal decreased muscle. LABORATORIES: White blood count 5.43, hemoglobin 11.3, platelet count 123,000. Sodium 135, potassium 4.2, chloride 92, bicarbonate 34, BUN 12, creatinine 0.2. White blood count 5.43, hemoglobin 11.3, platelet a 123,000. No chest x-ray in the last 4 days. IMPRESSION: A 38-year-old with history of meningitis as a child who presented with: 1. Cardiopulmonary arrest. 2. Status epilepticus. 3. Acute on chronic hypoxemic respiratory failure. 4. Chronic hypercapnic respiratory failure. 5. Malnutrition with inability to adequately take on p.o. intake. DISCUSSION: This is a 38-year-old with problems outlined above. The patient has been in the hospital for 33 days and does not have enough strength or ability for oral intake. Ongoing discussions with his mother about a PEG tube. RECOMMENDATIONS: 1. Continue ventilatory support p.r.n. with BiPAP. 2. Continue seizure management per Dr. Rader. 3. Continue tube feeds. Discussed PEG tube placement with his mother, although she currently is resistant to this idea. cc: MD Sid Macario Jr, MD
[2018-06-22] MEDS: SOLU-MEDROL IV SCH ×3 (00:36→16:38)
[2018-06-22] MEDS: ZOSYN 3.375 GM in NS 50 ML IV SCH ×4 (02:23→21:15)
[2018-06-22] MEDS: DUONEB (A & A) INH SCH ×6 (03:15→23:30)
[2018-06-22] MEDS: DEPACON 1,000 MG in NS 50 ML IV SCH ×4 (04:50→23:55)
[2018-06-22 05:22] LABS: ALLEN TEST YES; BLOOD TYPE ARTERIAL; HCO3-(ACT) 33.5 mmoll (20.0-26.0); O2(CT) 16.6 mL/dL (15.0-23.0); O2HB 96.6 % (95.0-99.0); PO2(98.6) 110 mmHg (60-100); SAMPLE BLOOD; SAO2 99.3 % (95.0-100.0); THB 12.1 g/dL (11.5-17.4); pH(98.6) 7.42 (7.35-7.45)
[2018-06-22 05:35] LABS: PCO2(98.6) 58 mmHg (35-45)
[2018-06-22 05:36] LABS: MODALITY CANNULA
[2018-06-22 06:08] LABS: HEMOGLOBIN 11.7 g/dL (14.0-18.0); MCH 31.3 PG (27-31); MCHC 34.4 g/dL (33-37); MCV 90.9 FL (81-99); MPV 11.9 FL (7.4-10.4); RBC 3.74 XMIL (4.7-6.1); RDW 14.7 % (11.5-14.5); WBC 6.55 X1000 (4.8-10.8)
[2018-06-22] MEDS: SYNTHROID IV SCH (06:17)
[2018-06-22] MEDS: PATIENT'S OWN MED NG SCH ×3 (06:20→21:16)
[2018-06-22] MEDS: VANCOMYCIN 1,900 MG in NS 500 ML IV SCH ×2 (06:21→17:00)
[2018-06-22 06:26] LABS: AGAP 8; ALB/GLOB RATIO 1.1; ALBUMIN 3.1 g/dL (3.5-5.0); ALKALINE PHOSPHATASE 121 U/L (32-122); BUN 14 mg/dL (8-22); CALCIUM 8.8 mg/dL (8.8-10.2); CHLORIDE 92 mmol/L (98-107); COSMO 274; CREATININE 0.2 mg/dL (0.7-1.2); ESTIMATED GFR > 60; GLUCOSE 129 mg/dL (70-104); GOT 12 U/L (10-34); GPT 7 U/L (10-44); POTASSIUM 4.4 mmol/L (3.5-5.1); SODIUM 136 mmol/L (136-145); TCO2 36 mmol/L (25-35); TOTAL BILIRUBIN 0.18 mg/dL (0.20-1.00)
--- NOTE | 2018-06-22 06:48 | Diag Imaging Result Doc PS360 ---
EXAM: CHEST-PORTABLE HISTORY: abnormal exam TECHNIQUE: Portable chest single view COMPARISON: 06/17/2018 FINDINGS: No change in the right-sided PICC line or nasogastric tube. The lungs are well expanded. No cardiomegaly. No pleural effusions identified. Mild increased interstitial markings. These are less pronounced in the left lung than they were previously. IMPRESSION: Continued mild interval improvement. Electronically signed by Man Benavides 06/22/2018 6:45 AM
[2018-06-22] MEDS: LOVENOX SUBQ SCH ×2 (08:44→21:14)
[2018-06-22] MEDS: PEPCID IV SCH ×2 (08:44→21:14)
[2018-06-22] MEDS: SODIUM CHLORIDE 0.9% INJ SCH ×2 (08:47→21:14)
--- NOTE | 2018-06-22 11:11 | PROGRESS NOTE ---
DATE: 06/22/2018 SUBJECTIVE: Mr. Dean had a cardiac arrest. He had encephalopathy. He had history of pneumonia. Chest x-ray shows improvement. His last ABGs show a decrease in the pCO2 from 61 to 58. Electrolytes are normal. His vital signs are stable. He seems to be confused and had some involuntary type of movements in the left leg. The family is trying to help him to get the physical therapy. We will continue the current management. He gets NG tube feeding, which he will continue. -5 cc: MD Sid Arizmendi Jr, MD
--- NOTE | 2018-06-22 14:54 | PULMONOLOGY PROGRESS NOTE ---
DATE: 06/22/2018 SUBJECTIVE: The patient is more awake today. He did smile with interactions from this examiner. OBJECTIVE: Vital Signs: BP 115/78, heart rate 85, respiratory rate 18, and oxygen saturation 100% on nasal cannula. HEENT: Pupils are equal and reactive. Oropharynx appears clear. Neck: Supple. Respiratory: Chest reveals occasional rhonchi bilaterally. Cardiac: S1, S2. Abdomen: Soft with good bowel sounds present. Extremities: The extremities are without edema. LABORATORY DATA: Chest x-ray reveals slight increased markings bilaterally which have diminished over time and are less prominent than 06/17/2018. White blood count is 6.55, hemoglobin 11.7, and platelet count 157,000. Arterial blood gas reveals a pH of 7.42, pCO2 of 58, and pO2 of 110. IMPRESSION: A 38-year-old with history of meningitis as a child, history of learning disability with: 1. Cardiopulmonary arrest. 2. Status epilepticus. 3. Acute encephalopathy. 4. Acute on chronic hypoxemic respiratory failure. 5. Chronic hypercapnic respiratory failure. 6. Malnutrition. DISCUSSION: A 38-year-old with problems outlined above. The patient does appear to be improving. At this juncture, I would recommend that Speech Therapy reevaluate the patient to see whether he can safely resume p.o. intake. I do not see a Speech evaluation during this hospitalization. If he is unstable for oral intake, then would recommend proceeding with a PEG tube. RECOMMENDATIONS: 1. Continue oxygen and nocturnal ventilatory support. 2. Continue seizure management. 3. Recommend Speech evaluation on Sunday and proceeding with either oral intake or PEG tube placement. cc: MD Sid Macario Jr, MD
[2018-06-23] MEDS: SOLU-MEDROL IV SCH ×3 (01:12→17:32)
[2018-06-23] MEDS: ZOSYN 3.375 GM in NS 50 ML IV SCH ×4 (01:13→21:34)
[2018-06-23] MEDS: DUONEB (A & A) INH SCH ×7 (03:40→23:24)
[2018-06-23] MEDS: DEPACON 1,000 MG in NS 50 ML IV SCH ×4 (05:17→22:14)
[2018-06-23] MEDS: PATIENT'S OWN MED NG SCH ×3 (05:18→21:35)
[2018-06-23 05:51] LABS: HEMOGLOBIN 11.9 g/dL (14.0-18.0); MCH 31.4 PG (27-31); MCV 92.3 FL (81-99); MPV 11.5 FL (7.4-10.4); RBC 3.79 XMIL (4.7-6.1); RDW 15.3 % (11.5-14.5); WBC 6.2 X1000 (4.8-10.8)
[2018-06-23] MEDS: SODIUM CHLORIDE 0.9% INJ PRN (06:06)
[2018-06-23] MEDS: SYNTHROID IV SCH (06:06)
[2018-06-23 06:15] LABS: AGAP 8; ALB/GLOB RATIO 1.1; ALBUMIN 3.2 g/dL (3.5-5.0); ALKALINE PHOSPHATASE 111 U/L (32-122); BUN 18 mg/dL (8-22); CALCIUM 9.1 mg/dL (8.8-10.2); CHLORIDE 95 mmol/L (98-107); COSMO 277; CREATININE 0.2 mg/dL (0.7-1.2); ESTIMATED GFR > 60; GLUCOSE 115 mg/dL (70-104); GOT 10 U/L (10-34); GPT 7 U/L (10-44); POTASSIUM 4.3 mmol/L (3.5-5.1); SODIUM 137 mmol/L (136-145); TCO2 34 mmol/L (25-35); TOTAL BILIRUBIN 0.19 mg/dL (0.20-1.00); TOTAL PROTEIN 6.1 g/dL (6.3-8.3)
[2018-06-23] MEDS: VANCOMYCIN 1,900 MG in NS 500 ML IV SCH ×2 (06:38→18:16)
[2018-06-23] MEDS: LOVENOX SUBQ SCH ×2 (08:18→21:34)
[2018-06-23] MEDS: PEPCID IV SCH ×2 (08:18→21:35)
[2018-06-23] MEDS: SODIUM CHLORIDE 0.9% INJ SCH ×2 (08:18→21:35)
--- NOTE | 2018-06-23 12:48 | PROGRESS NOTE ---
DATE: 06/23/2018 Mr. Dean is in about the same general condition. His lungs sound clear. Heart sounds are normal. He is getting the NG tube feeding. White count was 6.20, hemoglobin 11.9, hematocrit 35. Electrolytes are normal. He had history of cardiopulmonary arrest and history of status epilepticus. He has some acute encephalopathy, and his vital signs are stable. Overall condition is unchanged. -7 cc: MD Sid Arizmendi Jr, MD
--- NOTE | 2018-06-23 16:55 | PULMONOLOGY PROGRESS NOTE ---
DATE: 06/23/2018 SUBJECTIVE: The patient is sleeping but arousable. He appears comfortable. His mother is not at the bedside today. OBJECTIVE: Vital Signs: The patient has been afebrile for the last 24 hours. BP 115/81, heart rate 86, respiratory rate 16, oxygen saturation 100%. HEENT: Pupils are equal and reactive. Oropharynx appears clear. Neck: Supple. Chest: Appears relatively clear. Cardiac: S1, S2. Abdomen: Soft. Extremities: Without edema. LABORATORIES: White blood count 6.2, hemoglobin 11.9, platelet count 156,000. Sodium 137, potassium 4.3, chloride 95, bicarbonate 34, BUN 18, creatinine 0.2. IMPRESSIONS: A 38-year-old with: 1. Acute on chronic hypoxemic respiratory failure. 2. Chronic hypercapnic respiratory failure. 3. Status epilepticus. 4. Status post cardiopulmonary arrest. 5. Malnutrition. DISCUSSION: This is a 38-year-old with problems outlined above. He has been in the hospital for 35 days and remains on NG feeding. I will ask speech therapy to evaluate him to see if he is a candidate to resume p.o. nutrition and if he is not, then a PEG tube would be recommended. PLAN: 1. Continue oxygen and nocturnal ventilatory support with BiPAP. 2. Continue seizure management. 3. Speech therapy evaluation to be scheduled for tomorrow. cc: MD Sid Macario Jr, MD
[2018-06-23 17:06] LABS: URINE SOURCE CATH
[2018-06-23 17:08] LABS: BILIRUBIN URINE NEGATIVE (NEGATIVE); BLOOD URINE MODERATE (NEGATIVE); COLOR YELLOW; GLUCOSE URINE NEGATIVE (NEGATIVE); KETONE URINE NEGATIVE (NEGATIVE); LEUKOCYTES URINE NEGATIVE (NEGATIVE); NITRITE URINE NEGATIVE (NEGATIVE); PROTEIN URINE NEGATIVE (NEGATIVE); SP GRAVITY URINE 1.021; TURBIDITY URINE CLEAR (CLEAR); UROBILINOGEN URINE NORMAL (NORMAL)
[2018-06-23 17:10] LABS: UR EPITHELIAL CELLS <10 /HPF (<10); URINE BACTERIA NEGATIVE /HPF; URINE RBC TNTC /HPF (<10); URINE WBC <10 /HPF (<10)
[2018-06-24] MEDS: SOLU-MEDROL IV SCH ×3 (00:08→16:06)
[2018-06-24] MEDS: ZOSYN 3.375 GM in NS 50 ML IV SCH ×4 (01:28→21:16)
[2018-06-24] MEDS: DUONEB (A & A) INH SCH ×6 (03:44→23:10)
[2018-06-24] MEDS: DEPACON 1,000 MG in NS 50 ML IV SCH (04:15)
[2018-06-24 05:23] LABS: HEMATOCRIT 33.9 % (42.0-52.0); HEMOGLOBIN 11.6 g/dL (14.0-18.0); MCH 30.9 PG (27-31); MCHC 34.2 g/dL (33-37); MCV 90.4 FL (81-99); MPV 11.1 FL (7.4-10.4); RBC 3.75 XMIL (4.7-6.1); WBC 5.62 X1000 (4.8-10.8)
[2018-06-24] MEDS: VANCOMYCIN 1,900 MG in NS 500 ML IV SCH ×2 (05:28→18:06)
[2018-06-24] MEDS: PATIENT'S OWN MED NG SCH ×3 (05:28→21:23)
[2018-06-24 05:53] LABS: AGAP 6; ALB/GLOB RATIO 1.3; ALBUMIN 3.1 g/dL (3.5-5.0); ALKALINE PHOSPHATASE 107 U/L (32-122); BUN 15 mg/dL (8-22); CHLORIDE 95 mmol/L (98-107); COSMO 272; CREATININE 0.2 mg/dL (0.7-1.2); ESTIMATED GFR > 60; GLUCOSE 112 mg/dL (70-104); GOT 11 U/L (10-34); GPT 6 U/L (10-44); POTASSIUM 4.6 mmol/L (3.5-5.1); SODIUM 135 mmol/L (136-145); TCO2 34 mmol/L (25-35); TOTAL BILIRUBIN 0.17 mg/dL (0.20-1.00); TOTAL PROTEIN 5.4 g/dL (6.3-8.3)
[2018-06-24] MEDS: SYNTHROID IV SCH (06:05)
[2018-06-24] MEDS: PEPCID IV SCH ×2 (08:09→21:17)
[2018-06-24] MEDS: LOVENOX SUBQ SCH ×2 (08:10→21:16)
[2018-06-24] MEDS: SODIUM CHLORIDE 0.9% INJ SCH ×2 (08:10→21:17)
--- NOTE | 2018-06-24 08:57 | PROGRESS NOTE ---
DATE: 06/24/2018 SUBJECTIVE: The patient is awake and appears alert. Does not seem to respond to me today. OBJECTIVE: Temperature 98.4 degrees Fahrenheit, pulse 96 and regular, respirations 12, blood pressure 130/72, and oxygen saturation on 2 L is 100%.HEENT: Normocephalic. EOMs intact. PERRLA. Throat clear. Lungs: Clear to auscultation. Heart: Regular rate and rhythm without murmurs, gallops, or friction rubs. Abdomen: Soft. Active bowel sounds. No organomegaly or tenderness. LABORATORY: CBC is essentially normal. Total protein is low at 5.4. Albumin 3.1. Rest of the lab work essentially normal. Cath urine was done which did show red blood cells, but no pus or bacteria. ASSESSMENT: 1. Cardiac arrest. 2. Respiratory arrest. 3. Acute encephalopathy. 4. Chronic encephalopathy. 5. Seizure disorder. 6. Poor nutrition. 7. History of anemia. PLAN: Evaluation of his swallowing to see whether he can be pushed to eat more, or whether he needs a PEG. Otherwise continue to support. cc: Sid Guerrero Jr, MD
--- NOTE | 2018-06-24 09:59 | PROGRESS NOTE ---
DATE: 06/24/2018 Bigg has not had a clinically recognized seizure in several weeks. He has tolerated stopping levetiracetam. He has continued awake and alert, but has not seemed to be significantly more responsive or communicative since stopping levetiracetam. At this point, I will reduce his valproic acid dose to the baseline 3 g daily. We will continue to follow clinically. Eventually might need to consider repeating EEG and imaging. I have some concern for a component of irreversible brain injury following his recent cardiac arrest, but too soon to say that for certain. Thanks for asking Neurology to follow Bigg. cc: MD Sid Bazan III, Jr, MD MTDD
[2018-06-24] MEDS: DEPACON IV SCH ×3 (11:13→21:29)
[2018-06-24] MEDS: NS IV SCH ×3 (11:13→21:29)
[2018-06-25] MEDS: ZOSYN 3.375 GM in NS 50 ML IV SCH ×2 (01:22→08:26)
[2018-06-25] MEDS: SOLU-MEDROL IV SCH ×3 (01:22→17:42)
[2018-06-25] MEDS: DEPACON IV SCH ×3 (03:25→17:57)
[2018-06-25] MEDS: NS IV SCH ×3 (03:25→17:57)
[2018-06-25] MEDS: DUONEB (A & A) INH SCH ×6 (03:26→23:20)
[2018-06-25 04:54] LABS: ALLEN TEST YES; BE 10.5 mmoll (-3.0-3.0); BLOOD TYPE ARTERIAL; HCO3-(ACT) 33.1 mmoll (20.0-26.0); METHB 1.2 % (0.0-1.5); O2HB 96.2 % (95.0-99.0); PO2(98.6) 103 mmHg (60-100); SAMPLE BLOOD; SAO2 99.4 % (95.0-100.0); pH(98.6) 7.39 (7.35-7.45)
[2018-06-25 05:03] LABS: MODALITY CANNULA; PCO2(98.6) 62 mmHg (35-45)
[2018-06-25 05:19] LABS: HEMATOCRIT 33.1 % (42.0-52.0); HEMOGLOBIN 11.2 g/dL (14.0-18.0); MCH 31.2 PG (27-31); MCHC 33.8 g/dL (33-37); MCV 92.2 FL (81-99); MPV 11.8 FL (7.4-10.4); RBC 3.59 XMIL (4.7-6.1); RDW 15.1 % (11.5-14.5); WBC 6.43 X1000 (4.8-10.8)
[2018-06-25] MEDS: PATIENT'S OWN MED NG SCH ×3 (05:20→21:08)
[2018-06-25] MEDS: SYNTHROID IV SCH ×2 (05:21→06:03)
[2018-06-25] MEDS: VANCOMYCIN 1,900 MG in NS 500 ML IV SCH ×2 (05:21)
[2018-06-25 06:09] LABS: AGAP 9; ALB/GLOB RATIO 1.4; ALBUMIN 3.1 g/dL (3.5-5.0); ALKALINE PHOSPHATASE 109 U/L (32-122); BUN 13 mg/dL (8-22); CALCIUM 9.1 mg/dL (8.8-10.2); CHLORIDE 95 mmol/L (98-107); COSMO 277; CREATININE 0.2 mg/dL (0.7-1.2); ESTIMATED GFR > 60; GLUCOSE 117 mg/dL (70-104); GOT 11 U/L (10-34); GPT 6 U/L (10-44); POTASSIUM 4.1 mmol/L (3.5-5.1); SODIUM 138 mmol/L (136-145); TCO2 34 mmol/L (25-35); TOTAL BILIRUBIN 0.19 mg/dL (0.20-1.00); TOTAL PROTEIN 5.3 g/dL (6.3-8.3)
--- NOTE | 2018-06-25 07:00 | Diag Imaging Result Doc PS360 ---
EXAM: CHEST-1 VIEW HISTORY: SOB TECHNIQUE: Portable chest single view COMPARISON: 06/22/2018 FINDINGS: No change in the right-sided PICC line or in the nasogastric tube. The patient is rotated to the right. There are increased interstitial markings most pronounced in the mid lungs. These are fairly similar to the prior study. No pleural effusions identified. IMPRESSION: Stable chest Electronically signed by Man Benavides 06/25/2018 6:58 AM
[2018-06-25] MEDS: SODIUM CHLORIDE 0.9% INJ SCH ×2 (08:26→21:08)
[2018-06-25] MEDS: LOVENOX SUBQ SCH ×2 (08:26→21:07)
[2018-06-25] MEDS: PEPCID IV SCH ×2 (08:26→21:08)
--- NOTE | 2018-06-25 08:46 | PROGRESS NOTE ---
DATE: 06/25/2018 SUBJECTIVE: The patient is awake and alert but not responsive to my voice. He does not follow me with his eyes. OBJECTIVE: Blood pressure is 119/75, respirations 14, pulse 95, temperature 98.2 degrees Fahrenheit. HEENT: Normocephalic. EOMs intact. PERRLA. Throat clear. Lungs: Clear to auscultation and percussion without rhonchi, rales, or wheezes. Heart: Regular rate and rhythm without murmurs, gallops, or friction rubs. Abdomen: Soft. Active bowel sounds. No organomegaly or tenderness. Neurological Examination: The patient is not moving his extremities on his own very much. Would not squeeze my fingers when asked. He is awake and looking around but does not follow me and does not seem to respond to my voice. ASSESSMENT: 1. Respiratory arrest, now improved. 2. Cardiac arrest, resuscitated. 3. Encephalopathy, both acute and chronic. 4. Seizure disorder. 5. Anemia. 6. Nutritional problems, now being evaluated by speech therapy. 7. Pneumonia. PLAN: Continue to support. cc: Sid Guerrero Jr, MD
[2018-06-25] MEDS ORDERED: DEPACON 1,000 MG in NS 50 ML IV SCH (09:48)
--- NOTE | 2018-06-25 14:14 | PROGRESS NOTE ---
DATE: 06/25/2018 Mother at the bedside reports Bigg was more alert and attentive, communicated, smiled yesterday. This morning, he remained bright and alert until seeming tired after being fed lunch. He has tolerated his p.o. feedings very well. Earlier this morning, there was report of head and neck twitching progressing into the shoulder with head turning. Features were worrisome for recurrent seizure. At that point, I ordered to return his valproic acid dose to 1000 mg q.6 h. which had been his dose for a few weeks prior to reducing to 750 mg q.6 h. yesterday. At the bedside now, Bigg is awake, alert, more attentive. He regarded me, but did not communicate at his baseline. I remain concerned that the valproic acid level may be contributing to his somnolence. Mother's report and her observation are encouraging. I have ordered to return the valproic acid dose to 750 mg q.6 h. We will follow on that dose. Mother understands there is risk for seizure. Thanks for asking Neurology to see Bigg. cc: MD Sid Bazan III, Jr, MD MTDD
[2018-06-26] MEDS: DEPACON IV SCH ×4 (00:18→17:27)
[2018-06-26] MEDS: SOLU-MEDROL IV SCH ×3 (00:18→17:27)
[2018-06-26] MEDS: NS IV SCH ×4 (00:18→17:27)
[2018-06-26] MEDS: DUONEB (A & A) INH SCH ×6 (03:34→22:53)
[2018-06-26] MEDS: PATIENT'S OWN MED NG SCH ×3 (05:03→21:09)
[2018-06-26 05:20] LABS: HEMATOCRIT 35.4 % (42.0-52.0); MCH 31.1 PG (27-31); MCHC 33.9 g/dL (33-37); MCV 91.7 FL (81-99); MPV 11.4 FL (7.4-10.4); RBC 3.86 XMIL (4.7-6.1); RDW 15.4 % (11.5-14.5); WBC 7.48 X1000 (4.8-10.8)
[2018-06-26 05:59] LABS: AGAP 9; ALB/GLOB RATIO 1.3; ALBUMIN 3.3 g/dL (3.5-5.0); ALKALINE PHOSPHATASE 116 U/L (32-122); BUN 13 mg/dL (8-22); CALCIUM 9.1 mg/dL (8.8-10.2); CHLORIDE 92 mmol/L (98-107); COSMO 272; CREATININE 0.2 mg/dL (0.7-1.2); ESTIMATED GFR > 60; GLUCOSE 130 mg/dL (70-104); GOT 12 U/L (10-34); GPT 8 U/L (10-44); POTASSIUM 4.3 mmol/L (3.5-5.1); SODIUM 135 mmol/L (136-145); TCO2 34 mmol/L (25-35); TOTAL BILIRUBIN 0.18 mg/dL (0.20-1.00); TOTAL PROTEIN 5.9 g/dL (6.3-8.3)
[2018-06-26] MEDS: SYNTHROID IV SCH (06:18)
--- NOTE | 2018-06-26 06:58 | PROGRESS NOTE ---
DATE: 06/26/2018 SUBJECTIVE: The patient is sleeping at this time. According to nurses, he has been up most of the night. He was started on a pureed diet yesterday and, apparently, he has tolerated that. OBJECTIVE: Vital signs: Blood pressure is 115/78, respirations 16, pulse 98, temperature 97.4 degrees Fahrenheit. HEENT: He is normocephalic. EOMs intact. PERRLA. Throat clear. Lungs: Clear to auscultation and percussion without rhonchi, rales, or wheezes. Heart: Regular rate and rhythm without murmurs, gallops, friction rubs. Abdomen: Soft. Active bowel sounds. No organomegaly or tenderness. Neurologic: Hard to evaluate this morning as he is so sleepy, but the patient has been alert without really purposeful interaction. ASSESSMENT: 1. Status post respiratory arrest. 2. Status post cardiac arrest. 3. Acute and chronic encephalopathy. 4. Seizure disorder. 5. Anemia. 6. Pneumonia, clearing. 7. Nutritional problems. PLAN: Continue to support. If he continues to tolerate his pureed diet and can take his pills, will stop his NG tube. cc: Sid Guerrero Jr, MD
[2018-06-26] MEDS: PEPCID IV SCH ×2 (09:12→21:10)
[2018-06-26] MEDS: SODIUM CHLORIDE 0.9% INJ SCH ×2 (09:13→21:10)
[2018-06-26] MEDS: LOVENOX SUBQ SCH ×2 (09:13→21:10)
--- NOTE | 2018-06-26 13:33 | PROGRESS NOTE ---
DATE: 06/26/2018 SUBJECTIVE: Bigg has continued awake and alert, more attentive, tolerating his pureed diet very well. He has not had definite clinical seizure recognized. He has occasional muscle twitching in the limbs and face, but nothing that mother has interpreted to be seizure. I believe he is still sleeping more than is his baseline. Mother noticed that he moved his arm spontaneously earlier today. PLAN: I do not have any new suggestion or new thoughts today from Neurology standpoint. We can continue to follow with current seizure medication regimen. He has NG out now. We hope to see him able to swallow his tablets. Thanks for asking us to see Bigg. cc: MD Sid Bazan III, Jr, MD MTDD
[2018-06-27] MEDS: SOLU-MEDROL IV SCH ×3 (00:15→16:20)
[2018-06-27] MEDS: DEPACON IV SCH ×4 (00:15→17:03)
[2018-06-27] MEDS: NS IV SCH ×4 (00:15→17:03)
[2018-06-27] MEDS: DUONEB (A & A) INH SCH ×6 (03:22→23:47)
[2018-06-27] MEDS: PATIENT'S OWN MED NG SCH ×3 (05:13→23:40)
[2018-06-27 05:27] LABS: HEMATOCRIT 34.7 % (42.0-52.0); HEMOGLOBIN 11.7 g/dL (14.0-18.0); MCH 31.5 PG (27-31); MCHC 33.7 g/dL (33-37); MCV 93.3 FL (81-99); MPV 11.8 FL (7.4-10.4); RBC 3.72 XMIL (4.7-6.1); RDW 15.4 % (11.5-14.5); WBC 6.35 X1000 (4.8-10.8)
[2018-06-27 06:00] LABS: AGAP 9; ALB/GLOB RATIO 1.3; ALBUMIN 3.2 g/dL (3.5-5.0); ALKALINE PHOSPHATASE 104 U/L (32-122); BUN 16 mg/dL (8-22); CALCIUM 9.4 mg/dL (8.8-10.2); CHLORIDE 93 mmol/L (98-107); COSMO 273; CREATININE 0.2 mg/dL (0.7-1.2); ESTIMATED GFR > 60; GLUCOSE 94 mg/dL (70-104); GOT 12 U/L (10-34); GPT 7 U/L (10-44); POTASSIUM 4.5 mmol/L (3.5-5.1); SODIUM 136 mmol/L (136-145); TCO2 34 mmol/L (25-35); TOTAL BILIRUBIN 0.26 mg/dL (0.20-1.00); TOTAL PROTEIN 5.7 g/dL (6.3-8.3)
[2018-06-27] MEDS: SYNTHROID IV SCH (06:07)
[2018-06-27] MEDS: LOVENOX SUBQ SCH ×2 (08:46→20:47)
[2018-06-27] MEDS: PEPCID IV SCH ×2 (08:48→20:47)
[2018-06-27] MEDS: SODIUM CHLORIDE 0.9% INJ SCH ×2 (08:48→20:47)
--- NOTE | 2018-06-27 09:09 | PROGRESS NOTE ---
DATE: 06/27/2018 SUBJECTIVE: The patient is more alert today. He is eating. He is having to be fed by his mother or by a nurse, but he is tolerating his pureed diet very well. He looks at his mother, and tries to be purposeful. He is moving his right arm a little bit more now. OBJECTIVE: Blood pressure is 104/75, respirations 17, pulse 82. He is afebrile. Oxygen is 100% on 2 L per nasal cannula.HEENT: He is normocephalic. EOMS intact. PERRLA. Throat clear. Lungs: Clear to auscultation and percussion without rhonchi, rales, or wheezes. Heart: Regular rate and rhythm without murmurs, gallops, or friction rubs. Abdomen: Soft. Active bowel sounds. No organomegaly or tenderness. Neurological: The patient is more alert, a little bit more purposeful. Still not moving his arms a lot, but moves his right arm a little bit. ASSESSMENT: 1. Status post respiratory arrest. 2. Status post cardiac arrest. 3. Acute and chronic encephalopathy. 4. Seizure disorder. 5. Nutritional problems. 6. Anemia now resolved. PLAN: Continue current treatment. The patient seems to be improving. cc: Sid Guerrero Jr, MD
--- NOTE | 2018-06-27 10:22 | PROGRESS NOTE ---
DATE: 06/27/2018 This morning I observed Bigg propped up in bed, awake and alert, appearing brighter than what I have witnessed before. Mother reports he was very attentive to breakfast. I observed him being fed some of his protein concoction, and he swallowed that without difficulty. He did not follow my commands. He did voluntarily move each arm very briefly purposefully, and did not repeat that movement to command. He has not had seizure recognized in recent weeks. He appears to be tolerating current seizure medication regimen. No new suggestions today. Thanks again for asking us to see iBgg. cc: MD Sid Bazan III, Jr, MD MTDD
[2018-06-28] MEDS: NS IV SCH ×4 (00:09→17:17)
[2018-06-28] MEDS: DEPACON IV SCH ×4 (00:09→17:17)
[2018-06-28] MEDS: SOLU-MEDROL IV SCH ×3 (00:10→17:17)
[2018-06-28] MEDS: DUONEB (A & A) INH SCH ×7 (03:30→23:49)
[2018-06-28] MEDS: PATIENT'S OWN MED NG SCH ×3 (05:01→22:05)
[2018-06-28] MEDS: SYNTHROID IV SCH ×2 (05:01→06:00)
[2018-06-28 05:48] LABS: HEMATOCRIT 32.9 % (42.0-52.0); HEMOGLOBIN 11.3 g/dL (14.0-18.0); MCH 31.7 PG (27-31); MCHC 34.3 g/dL (33-37); MCV 92.4 FL (81-99); MPV 11.8 FL (7.4-10.4); RBC 3.56 XMIL (4.7-6.1); WBC 7.3 X1000 (4.8-10.8)
[2018-06-28 06:39] LABS: AGAP 6; ALB/GLOB RATIO 1.2; ALBUMIN 3.2 g/dL (3.5-5.0); ALKALINE PHOSPHATASE 101 U/L (32-122); BUN 14 mg/dL (8-22); CALCIUM 9.2 mg/dL (8.8-10.2); CHLORIDE 93 mmol/L (98-107); COSMO 270; CREATININE 0.2 mg/dL (0.7-1.2); ESTIMATED GFR > 60; GLUCOSE 93 mg/dL (70-104); GOT 11 U/L (10-34); GPT 7 U/L (10-44); POTASSIUM 4.1 mmol/L (3.5-5.1); SODIUM 135 mmol/L (136-145); TCO2 36 mmol/L (25-35); TOTAL PROTEIN 5.8 g/dL (6.3-8.3)
[2018-06-28] MEDS: LOVENOX SUBQ SCH ×2 (09:32→22:05)
[2018-06-28] MEDS: PEPCID IV SCH ×2 (09:32→22:05)
--- NOTE | 2018-06-28 09:33 | PROGRESS NOTE ---
DATE: 06/28/2018 SUBJECTIVE: The patient is more alert. He is trying to talk some now. He will squeeze my fingers when I asked him to. He is still very weak but much better and much more alert. He is eating much better now, so we have seen improvement. OBJECTIVE: Vital Signs: Blood pressure is 132/80, respirations 17, pulse 102, temperature 97.3 degrees Fahrenheit. HEENT: Normocephalic. EOMs intact. PERRLA. Throat clear. Lungs: Clear to auscultation and percussion without rhonchi, rales, or wheezes. Heart: Regular rate and rhythm without murmurs, gallops, friction rubs. Abdomen: Soft. Active bowel sounds. No organomegaly or tenderness. Neurologic: The patient is much more alert. He is more responsive now. ASSESSMENT: 1. Respiratory arrest. 2. Cardiac arrest. 3. Chronic obstructive pulmonary disease and pulmonary fibrosis. 4. Seizure disorder. 5. Encephalopathy, acute and chronic. PLAN: Continue to support. cc: Sid Guerrero Jr, MD
[2018-06-28] MEDS: SODIUM CHLORIDE 0.9% INJ SCH ×2 (09:35→22:05)
[2018-06-29] MEDS: NS IV SCH ×5 (00:29→23:16)
[2018-06-29] MEDS: SOLU-MEDROL IV SCH ×3 (00:29→17:57)
[2018-06-29] MEDS: DEPACON IV SCH ×5 (00:29→23:16)
[2018-06-29] MEDS: DUONEB (A & A) INH SCH ×6 (03:35→23:10)
[2018-06-29] MEDS: PATIENT'S OWN MED NG SCH ×3 (05:26→22:15)
[2018-06-29 05:42] LABS: HEMATOCRIT 33.3 % (42.0-52.0); HEMOGLOBIN 11.4 g/dL (14.0-18.0); MCH 31.4 PG (27-31); MCHC 34.2 g/dL (33-37); MCV 91.7 FL (81-99); MPV 11.8 FL (7.4-10.4); RBC 3.63 XMIL (4.7-6.1); RDW 14.9 % (11.5-14.5); WBC 7.43 X1000 (4.8-10.8)
[2018-06-29 06:20] LABS: AGAP 7; ALB/GLOB RATIO 1.2; ALBUMIN 3.2 g/dL (3.5-5.0); ALKALINE PHOSPHATASE 97 U/L (32-122); BUN 9 mg/dL (8-22); CALCIUM 9.3 mg/dL (8.8-10.2); CHLORIDE 94 mmol/L (98-107); COSMO 267; CREATININE 0.2 mg/dL (0.7-1.2); ESTIMATED GFR > 60; GLUCOSE 99 mg/dL (70-104); GOT 11 U/L (10-34); GPT 8 U/L (10-44); POTASSIUM 4.2 mmol/L (3.5-5.1); SODIUM 134 mmol/L (136-145); TCO2 33 mmol/L (25-35); TOTAL BILIRUBIN 0.25 mg/dL (0.20-1.00); TOTAL PROTEIN 5.8 g/dL (6.3-8.3)
[2018-06-29] MEDS: SYNTHROID IV SCH (07:20)
[2018-06-29] MEDS: SODIUM CHLORIDE 0.9% INJ PRN (07:21)
[2018-06-29] MEDS: SODIUM CHLORIDE 0.9% INJ SCH ×2 (08:30→20:36)
[2018-06-29] MEDS: LOVENOX SUBQ SCH ×2 (08:30→20:36)
[2018-06-29] MEDS: PEPCID IV SCH ×2 (08:30→20:36)
--- NOTE | 2018-06-29 10:51 | PROGRESS NOTE ---
DATE: 06/29/2018 SUBJECTIVE: Mr. Dean is a 38-year-old white gentleman with multiple medical problems. Patient's admission history and physical noted. The patient seems to be doing better. More alert and awake. The patient is eating better. No high-grade fever or chills. No recent seizure. The patient is trying to talk some. No diarrhea. His history part was limited. OBJECTIVE: Vital signs: Blood pressure 106/73, pulse 74, respirations 14, temperature 97.6 degrees. Skin: Normal turgor. Neck: Supple. No JVD. Lungs: Decreased air entry both the bases. CVS: S1 and S2 heard. Abdomen: Soft, scaphoid. Bowel sounds present. BUSINESS BANKING MANAGER: Alert, awake. Patient does have involuntary movement at times. LABORATORY DATA: Revealed WBC count 7.43, hemoglobin 11.4, hematocrit 33.3, platelet count 163. Electrolytes were fairly benign. BUN was 9, creatinine 0.2. Sodium 134. ASSESSMENT AND PLAN: The patient does have multiple medical problems, including acute on chronic hypoxemic respiratory failure, clinically doing better, chronic hypercapnic respiratory failure, seizure disorder, status post cardiopulmonary arrest, malnutrition, encephalopathy. Labs and medication noted. We will continue current treatment and close observation. cc: MD Sid Bobo Jr, MD
[2018-06-30] MEDS: SOLU-MEDROL IV SCH ×3 (01:21→16:57)
[2018-06-30] MEDS: DUONEB (A & A) INH SCH ×5 (03:24→19:15)
[2018-06-30] MEDS: SYNTHROID IV SCH (06:08)
[2018-06-30] MEDS: NS IV SCH ×5 (06:09→23:24)
[2018-06-30] MEDS: DEPACON IV SCH ×5 (06:09→23:24)
[2018-06-30] MEDS: PATIENT'S OWN MED NG SCH ×3 (06:09→22:00)
--- NOTE | 2018-06-30 07:30 | PROGRESS NOTE ---
DATE: 06/30/2018 SUBJECTIVE: Mr. Dean is doing fair. The patient is more alert and awake. Not in any distress. Not able to give any history. No high-grade fever or chills. No recent seizure-type episode. PHYSICAL EXAMINATION: Vital Signs: Noted. Patient remains afebrile. Neck: Supple. No JVD. Lungs: Bibasilar crepitations. Heart: S1 and S2 heard. Abdomen: Soft, scaphoid. Bowel sounds present. TREE FELLER OPERATOR: Alert, awake. Uncooperative for detailed exam. LABORATORY DATA: Done yesterday, noted. MEDICAL PROBLEMS: Include: 1. Chronic hypoxemic respiratory failure. Clinically doing better. 2. Seizure disorder. 3. Status post cardiopulmonary arrest. PLAN: Overall, the patient is doing fair. We will continue current treatment and close observation. cc: MD Sid Bobo Jr, MD
[2018-06-30] MEDS: PEPCID IV SCH ×2 (09:02→20:04)
[2018-06-30] MEDS: LOVENOX SUBQ SCH ×2 (09:02→20:04)
[2018-06-30] MEDS: SODIUM CHLORIDE 0.9% INJ SCH ×2 (09:02→20:04)
[2018-07-01] MEDS: DUONEB (A & A) INH SCH ×7 (00:33→23:15)
[2018-07-01] MEDS: SOLU-MEDROL IV SCH ×3 (00:59→18:00)
[2018-07-01] MEDS: NS IV SCH ×3 (05:30→18:00)
[2018-07-01] MEDS: SYNTHROID IV SCH ×2 (05:30→06:00)
[2018-07-01] MEDS: DEPACON IV SCH ×3 (05:30→18:00)
[2018-07-01] MEDS: PATIENT'S OWN MED NG SCH ×3 (05:31→21:28)
--- NOTE | 2018-07-01 07:27 | Diag Imaging Result Doc PS360 ---
EXAM: CHEST-1 VIEW INDICATION: SOB TECHNIQUE: One view COMPARISON: 06/25/2018 FINDINGS: The NG tube has been removed. The right PICC line is in stable position. Increased interstitial markings suggesting mild edema are stable. There is probably trace subpulmonic fluid at the left lung base. No new consolidations are identified. Cardiac silhouette is stable. IMPRESSION: Essentially stable chest. Electronically signed by Leon Vicente 07/01/2018 7:25 AM
[2018-07-01] MEDS: SODIUM CHLORIDE 0.9% INJ SCH ×2 (08:41→21:28)
[2018-07-01] MEDS: PEPCID IV SCH ×2 (08:41→21:28)
[2018-07-01] MEDS: LOVENOX SUBQ SCH ×2 (08:41→21:28)
--- NOTE | 2018-07-01 09:16 | PROGRESS NOTE ---
DATE: 07/01/2018 SUBJECTIVE: The patient is alert he is not really communicating much at this point, did not squeeze my fingers when I asked him to today, but his mother says he has been doing for others and he did do it for me Sunday. OBJECTIVE: Vitals: Blood pressure is 114/75, respirations 20, pulse 73, temperature 97.8 degrees Fahrenheit. HEENT: Normocephalic. EOMs intact. PERRLA. Throat clear. Lungs: Clear to auscultation and percussion without rhonchi, rales, or wheezes. Chest x-ray, stable. Heart: Regular rate and rhythm without murmurs, gallops, friction rubs. Abdomen: Soft. Active bowel sounds. No organomegaly or tenderness. Neurological: Cranial nerves 2-12 intact grossly, sensory and motor intact. Reflexes 1+ all. Patient still does not show good strength in his extremities. ASSESSMENT: 1. Status post cardiopulmonary arrest. 2. Chronic obstructive pulmonary disease/fibrotic lung disease. 3. Encephalopathy. 4. Seizure disorder. 5. Nutritional problems. PLAN: Continue to feed patient and build his strength. cc: Sid Guerrero Jr, MD
[2018-07-02] MEDS: NS IV SCH ×4 (00:47→17:11)
[2018-07-02] MEDS: SOLU-MEDROL IV SCH ×3 (00:47→17:11)
[2018-07-02] MEDS: DEPACON IV SCH ×4 (00:47→17:11)
[2018-07-02] MEDS: DUONEB (A & A) INH SCH ×6 (03:36→22:56)
[2018-07-02] MEDS: SYNTHROID IV SCH (06:07)
[2018-07-02] MEDS: PATIENT'S OWN MED NG SCH ×3 (06:08→21:39)
[2018-07-02] MEDS: SODIUM CHLORIDE 0.9% INJ SCH ×2 (08:28→21:39)
[2018-07-02] MEDS: PEPCID IV SCH ×2 (08:28→21:38)
[2018-07-02] MEDS: LOVENOX SUBQ SCH ×2 (08:28→21:39)
--- NOTE | 2018-07-02 09:04 | PROGRESS NOTE ---
DATE: 07/02/2018 SUBJECTIVE: The patient is alert. He smiled at me a little bit. He is moving his head better. Will squeeze fingers just slightly. Still very weak. In 2013 he weighed 209 pounds; he is down to 123 pounds. When he came in the hospital this time he was around 147 pounds. OBJECTIVE: Vital Signs: Temperature is 96.7, pulse 83, respirations 17, blood pressure 122/81. HEENT: Normocephalic. EOMS intact. PERRLA. Throat clear. Lungs: Clear to auscultation and percussion without rhonchi, rales or wheezes. Heart: Regular rate and rhythm without murmurs, gallops, friction rubs. Abdomen: Soft. Active bowel sounds. No mass or organomegaly or tenderness. The patient is still very weak, but he has shown improvement. ASSESSMENT: 1. Respiratory arrest. 2. Cardiac arrest. 3. Seizure disorder. 4. Chronic obstructive pulmonary disease with fibrotic lung disease. 5. Acute and chronic encephalopathy. PLAN: Continue support. cc: Sid Guerrero Jr, MD
[2018-07-03] MEDS: DEPACON IV SCH ×4 (00:36→17:53)
[2018-07-03] MEDS: NS IV SCH ×4 (00:36→17:53)
[2018-07-03] MEDS: SOLU-MEDROL IV SCH ×3 (00:36→17:53)
[2018-07-03] MEDS: DUONEB (A & A) INH SCH ×6 (03:35→23:25)
[2018-07-03] MEDS: PATIENT'S OWN MED PO SCH ×3 (06:22→21:03)
[2018-07-03] MEDS: SYNTHROID IV SCH (06:23)
[2018-07-03] MEDS: LOVENOX SUBQ SCH ×2 (08:45→21:02)
[2018-07-03] MEDS: PEPCID IV SCH ×2 (08:45→21:02)
[2018-07-03] MEDS: SODIUM CHLORIDE 0.9% INJ SCH ×2 (08:45→21:13)
--- NOTE | 2018-07-03 09:27 | PROGRESS NOTE ---
DATE: 07/03/2018 SUBJECTIVE: The patient is more alert. He squeezed my fingers when I asked him to. 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 He follows me with his eyes and moves his head. He is starting to move his feet and his arms better. Overall, shows improvement. OBJECTIVE: Vital Signs: Blood pressure 119/88, respirations 22, pulse 88, temperature 98.3 degrees Fahrenheit. HEENT: Normocephalic. EOMs intact. PERRLA. Throat clear. Lungs: Clear to auscultation and percussion without rhonchi, rales, or wheezes. Heart: Regular rate and rhythm without murmurs, gallops, friction rubs. Abdomen: Soft. Active bowel sounds. No organomegaly or tenderness. Neurological: Improving, as above. ASSESSMENT: 1. Cardiopulmonary arrest. 2. Encephalopathy. 3. Seizure disorder. 4. Pneumonia, which is clear. 5. Chronic lung disease. PLAN: Continue support. cc: Sid Guerrero Jr, MD
--- NOTE | 2018-07-03 12:02 | PROGRESS NOTE ---
DATE: 07/03/2018 Bigg had a good morning, awake and alert, more attentive and following commands more consistently. His appetite has been good. He ate well at breakfast. Shortly after that, he had some repositioning in bed and then vomited. He has seemed exhausted since then, sleeping through the late morning. He was briefly awake and alert, and made eye contact with me but did not communicate beyond that. He spent most of the time, that I was at the bedside asleep. I discussed his current seizure management with mother at the bedside. He is getting the carbamazepine tablets in applesauce and managing that. We can switch his valproic acid back to oral divalproex tablet whenever he is swallowing more consistently. Thanks for asking neurology to see Bigg. cc: MD Sid Bazan III, Jr, MD MTDD
[2018-07-04] MEDS: SOLU-MEDROL IV SCH ×3 (00:25→17:38)
[2018-07-04] MEDS: DEPACON IV SCH ×4 (00:26→17:38)
[2018-07-04] MEDS: NS IV SCH ×4 (00:26→17:38)
[2018-07-04] MEDS: DUONEB (A & A) INH SCH ×6 (03:09→23:39)
[2018-07-04 05:28] LABS: BASO# 0.01 X1000 (0.0-0.2); BASO% 0.1 % (0.0-0.8); HEMATOCRIT 34.3 % (42.0-52.0); HEMOGLOBIN 12.1 g/dL (14.0-18.0); LYMPH# 0.75 X1000 (1.2-3.4); LYMPH% 11.2 % (20.5-51.1); MCH 31.3 PG (27-31); MCHC 35.3 g/dL (33-37); MCV 88.6 FL (81-99); MONO# 0.51 X1000 (0.11-0.59); MONO% 7.6 % (1.7-9.3); MPV 11.3 FL (7.4-10.4); NEUT# 5.45 X1000 (1.4-6.5); NEUT% 81.1 % (42.2-75.2); PLT 171 X1000 (130-400); RBC 3.87 XMIL (4.7-6.1); RDW 14.9 % (11.5-14.5); WBC 6.72 X1000 (4.8-10.8)
[2018-07-04] MEDS: SYNTHROID IV SCH ×2 (05:40→07:14)
[2018-07-04] MEDS: PATIENT'S OWN MED PO SCH ×3 (05:41→22:00)
[2018-07-04 05:43] LABS: AGAP 7; BUN 10 mg/dL (8-22); CALCIUM 8.7 mg/dL (8.8-10.2); CHLORIDE 90 mmol/L (98-107); COSMO 260; CREATININE 0.2 mg/dL (0.7-1.2); ESTIMATED GFR > 60; GLUCOSE 101 mg/dL (70-104); POTASSIUM 3.8 mmol/L (3.5-5.1); SODIUM 130 mmol/L (136-145); TCO2 33 mmol/L (25-35)
--- NOTE | 2018-07-04 07:34 | Diag Imaging Result Doc PS360 ---
EXAM: CHEST-1 VIEW INDICATION: SOB TECHNIQUE: One view COMPARISON: 07/01/2018 FINDINGS: Right PICC line is in stable position. Mild increased interstitial markings are approximately stable. No new consolidation is identified. Cardiac silhouette is stable. IMPRESSION: Stable chest. Electronically signed by Leon Vicente 07/04/2018 7:32 AM
[2018-07-04] MEDS: PEPCID IV SCH ×2 (09:14→20:22)
[2018-07-04] MEDS: LOVENOX SUBQ SCH (09:15)
[2018-07-04] MEDS: SODIUM CHLORIDE 0.9% INJ SCH ×2 (09:15→20:22)
--- NOTE | 2018-07-04 09:56 | PROGRESS NOTE ---
DATE: 07/04/2018 SUBJECTIVE: The patient is alert. He is eating soft food, but not swallowing pills yet; he will chew up his pills. He did sit up a little bit in a chair with assistance yesterday. OBJECTIVE: Vital Signs: Blood pressure is 109/74, respirations 15, pulse 89, temperature 98 degrees Fahrenheit. HEENT: Normocephalic. EOMS intact. PERRLA. Throat clear. Lungs: Sound clear to auscultation and percussion without rhonchi, rales, or wheezes. Chest x-ray shows stable chest. Heart: Regular rate and rhythm without murmurs, gallops, or friction rubs. Abdomen: Soft. Active bowel sounds. No organomegaly or tenderness. Neurological exam: The patient is more alert, not communicating a lot, but taking instructions from his mother of when to open his mouth. He will hold a cup now. ASSESSMENT: 1. Cardiopulmonary arrest post resuscitation. 2. Encephalopathy. 3. Seizure disorder. 4. Nutritional problems. 5. History of anemia. 6. History of elevated liver function tests. PLAN: Continue support. cc: Sid Guerrero Jr, MD
[2018-07-05] MEDS: DEPACON IV SCH ×4 (00:38→17:20)
[2018-07-05] MEDS: NS IV SCH ×4 (00:38→17:20)
[2018-07-05] MEDS: SOLU-MEDROL IV SCH ×3 (01:05→17:20)
[2018-07-05] MEDS: DUONEB (A & A) INH SCH ×6 (03:15→23:04)
[2018-07-05 05:49] LABS: EOS# 0.01 X1000 (0.0-0.7); EOS% 0.1 % (0.0-10.0); HEMATOCRIT 36.4 % (42.0-52.0); HEMOGLOBIN 12.6 g/dL (14.0-18.0); IMM GRAN# 0.02 X1000 (0.0-0.04); IMM GRAN% 0.2 % (0.0-0.5); LYMPH# 0.68 X1000 (1.2-3.4); LYMPH% 7.5 % (20.5-51.1); MCHC 34.6 g/dL (33-37); MCV 89.7 FL (81-99); MONO# 0.56 X1000 (0.11-0.59); MONO% 6.2 % (1.7-9.3); MPV 11.1 FL (7.4-10.4); NEUT# 7.79 X1000 (1.4-6.5); PLT 172 X1000 (130-400); RBC 4.06 XMIL (4.7-6.1); WBC 9.06 X1000 (4.8-10.8)
[2018-07-05] MEDS: PATIENT'S OWN MED PO SCH ×3 (05:59→21:27)
[2018-07-05] MEDS: SYNTHROID IV SCH ×2 (06:00→06:02)
[2018-07-05 06:14] LABS: AGAP 9; BUN 16 mg/dL (8-22); CALCIUM 8.9 mg/dL (8.8-10.2); CHLORIDE 93 mmol/L (98-107); COSMO 270; CREATININE 0.3 mg/dL (0.7-1.2); ESTIMATED GFR > 60; GLUCOSE 107 mg/dL (70-104); POTASSIUM 3.9 mmol/L (3.5-5.1); SODIUM 134 mmol/L (136-145); TCO2 32 mmol/L (25-35)
[2018-07-05 07:25] LABS: LYMPHS 7 % (21-51); MONO 7 % (1-9); SEGS 86 % (42-75)
[2018-07-05] MEDS: SODIUM CHLORIDE 0.9% INJ SCH ×2 (09:15→21:27)
[2018-07-05] MEDS: LOVENOX SUBQ SCH (09:15)
[2018-07-05] MEDS: PEPCID IV SCH ×2 (09:15→21:27)
--- NOTE | 2018-07-05 09:55 | PROGRESS NOTE ---
DATE: 07/05/2018 VITAL SIGNS: Stable with temperature 98 degrees, heart rate 102, respirations 16, blood pressure 127/74, and O2 saturation 100% on 2 liters nasal oxygen. SUBJECTIVE: The patient is a 38-year-old white man with encephalopathy who has been in the hospital for over a month post cardiac arrest. Chest x-ray yesterday was stable with mild perihilar increased interstitial markings with no new consolidation. He is able to swallow soft solid food, but chews up his Tegretol, and has difficulty in swallowing any pills. Discussion was made with his mother who plans to take him home at discharge back to [place]. OBJECTIVE: He has some occasional jerking of arms and neck, but is alert. He is sitting up in about 80 degrees in the bed. There is a decubitus ulcer on the sacrum and right medial knee. Abdomen is soft. PLAN: Continue supportive care. He is on Ensure and mechanical soft diet. Physical Therapy is assisting as well as speech therapy. He has a PICC line on the right. He continues to receive Solu-Medrol 40 mg IV q.8 hours and Depakote 750 mg IV q.6 hours. LABORATORY: Today reveals hemoglobin 12.6, hematocrit 36.4, white blood count 9000 with 86% neutrophils. Sodium was 134, potassium 3.9, BUN 16, and creatinine 0.3, glucose 107, and calcium 8.9. cc: MD Sid Pitt Jr, MD
[2018-07-06] MEDS: NS IV SCH ×4 (00:47→17:07)
[2018-07-06] MEDS: DEPACON IV SCH ×4 (00:47→17:07)
[2018-07-06] MEDS: SOLU-MEDROL IV SCH ×3 (00:48→16:43)
[2018-07-06] MEDS: DUONEB (A & A) INH SCH ×6 (03:30→23:16)
[2018-07-06] MEDS: PATIENT'S OWN MED PO SCH ×3 (05:16→21:16)
[2018-07-06 05:52] LABS: BASO# 0.01 X1000 (0.0-0.2); BASO% 0.1 % (0.0-0.8); EOS# 0.03 X1000 (0.0-0.7); EOS% 0.3 % (0.0-10.0); HEMATOCRIT 35.4 % (42.0-52.0); HEMOGLOBIN 12.1 g/dL (14.0-18.0); IMM GRAN# 0.03 X1000 (0.0-0.04); IMM GRAN% 0.3 % (0.0-0.5); LYMPH# 0.94 X1000 (1.2-3.4); LYMPH% 10.3 % (20.5-51.1); MCH 30.9 PG (27-31); MCHC 34.2 g/dL (33-37); MCV 90.3 FL (81-99); MONO# 0.65 X1000 (0.11-0.59); MONO% 7.1 % (1.7-9.3); MPV 11.1 FL (7.4-10.4); NEUT# 7.47 X1000 (1.4-6.5); NEUT% 81.9 % (42.2-75.2); PLT 184 X1000 (130-400); RBC 3.92 XMIL (4.7-6.1); RDW 15.1 % (11.5-14.5); WBC 9.13 X1000 (4.8-10.8)
[2018-07-06 06:25] LABS: AGAP 7; BUN 11 mg/dL (8-22); CHLORIDE 94 mmol/L (98-107); COSMO 266; CREATININE 0.2 mg/dL (0.7-1.2); ESTIMATED GFR > 60; GLUCOSE 102 mg/dL (70-104); POTASSIUM 4.1 mmol/L (3.5-5.1); SODIUM 133 mmol/L (136-145); TCO2 32 mmol/L (25-35)
[2018-07-06] MEDS: SYNTHROID IV SCH (06:31)
--- NOTE | 2018-07-06 08:11 | PULMONOLOGY PROGRESS NOTE ---
DATE: 07/05/2018 SUBJECTIVE: The patient is awake and alert. He does track the examiner upon arrival into the room and does smile spontaneously. He appears to be profoundly weak. OBJECTIVE: Vital Signs: The patient has been afebrile for the last 24 hours. Blood pressure 128/86, heart rate 116, respiratory rate 17, oxygen saturation 99% on 2 L per nasal cannula. HEENT: Pupils are equal and reactive. Oropharynx is clear. Neck: Supple. Chest: Occasional rhonchi bilaterally. Cardiac: S1, S2. ABDOMEN: Soft without hepatosplenomegaly. Extremities: Reveal significant muscle wasting. LABORATORY DATA: White blood count 9.06, hemoglobin 12.6, platelet count 172,000. Chemistry: Sodium 134, potassium 3.9, chloride 93, bicarbonate 32, BUN 16, creatinine 0.3. IMPRESSION: A 38-year-old number with: 1. Status post cardiopulmonary arrest. 2. Acute on chronic hypoxemic respiratory failure. 3. Chronic hypercapnic respiratory failure. 4. Malnutrition. 5. Generalized deconditioning. PLAN: 1. Continue to encourage p.o. intake as tolerated. 2. Continue bronchial hygiene. 3. Seizure management per Neurology. 4. Anticipate discharge to rehab or to home soon. cc: MD Sid Macario Jr, MD
[2018-07-06] MEDS: SODIUM CHLORIDE 0.9% INJ SCH ×2 (08:53→21:16)
[2018-07-06] MEDS: LOVENOX SUBQ SCH (08:53)
[2018-07-06] MEDS: PEPCID IV SCH ×2 (08:53→21:16)
--- NOTE | 2018-07-06 19:44 | PROGRESS NOTE ---
DATE: 07/06/2018 VITAL SIGNS: Temperature 97.4, heart rate 103, respirations 18, blood pressure 129/93, O2 saturation on 1 L nasal oxygen 97%. LABORATORY: Hemoglobin 12.1, hematocrit 35.4, white blood count 9100 with 82% neutrophils. Sodium 133, potassium 4.1, BUN 11, creatinine 0.2, glucose 102, calcium 9.0. The patient is alert and coughing some post eating breakfast. Lungs are clear. Coughing stopped after a few minutes. Mental status is grossly unchanged. Abdomen is soft. PLAN: Continue supportive care. Hopefully home soon to [place] with mother's assistance and home health. cc: MD Sid Pitt Jr, MD
[2018-07-07] MEDS: DEPACON IV SCH ×4 (00:32→17:17)
[2018-07-07] MEDS: NS IV SCH ×4 (00:32→17:17)
[2018-07-07] MEDS: SOLU-MEDROL IV SCH ×3 (00:32→17:17)
[2018-07-07] MEDS: DUONEB (A & A) INH SCH ×6 (03:49→23:24)
[2018-07-07] MEDS: PATIENT'S OWN MED PO SCH ×3 (05:04→21:20)
[2018-07-07 05:28] LABS: BASO# 0.01 X1000 (0.0-0.2); BASO% 0.1 % (0.0-0.8); EOS# 0.06 X1000 (0.0-0.7); EOS% 0.7 % (0.0-10.0); HEMATOCRIT 35.2 % (42.0-52.0); HEMOGLOBIN 12.3 g/dL (14.0-18.0); IMM GRAN# 0.02 X1000 (0.0-0.04); IMM GRAN% 0.2 % (0.0-0.5); LYMPH# 0.75 X1000 (1.2-3.4); LYMPH% 8.8 % (20.5-51.1); MCH 31.4 PG (27-31); MCHC 34.9 g/dL (33-37); MCV 89.8 FL (81-99); MONO% 5.9 % (1.7-9.3); MPV 11.1 FL (7.4-10.4); NEUT# 7.18 X1000 (1.4-6.5); NEUT% 84.3 % (42.2-75.2); PLT 154 X1000 (130-400); RBC 3.92 XMIL (4.7-6.1); WBC 8.52 X1000 (4.8-10.8)
[2018-07-07 05:51] LABS: AGAP 10; BUN 8 mg/dL (8-22); CALCIUM 9.2 mg/dL (8.8-10.2); CHLORIDE 93 mmol/L (98-107); COSMO 267; CREATININE 0.2 mg/dL (0.7-1.2); ESTIMATED GFR > 60; GLUCOSE 104 mg/dL (70-104); POTASSIUM 4.1 mmol/L (3.5-5.1); SODIUM 134 mmol/L (136-145); TCO2 31 mmol/L (25-35)
[2018-07-07] MEDS: SYNTHROID IV SCH (06:12)
[2018-07-07] MEDS: SODIUM CHLORIDE 0.9% INJ SCH ×2 (08:31→21:20)
[2018-07-07] MEDS: LOVENOX SUBQ SCH (08:31)
[2018-07-07] MEDS: PEPCID IV SCH ×2 (08:31→21:20)
--- NOTE | 2018-07-07 08:42 | PULMONOLOGY PROGRESS NOTE ---
DATE: 07/06/2018 SUBJECTIVE: The patient is awake and alert. He was smiling when I came into the room. He has no increased work of breathing. OBJECTIVE: Vital Signs: The patient has been afebrile for the last 24 hours. Blood pressure 154/85, heart rate 106, respiratory rate 16, oxygen saturation 94% on 1 L per nasal cannula. HEENT: Pupils are equal and reactive. Oropharynx is clear. Neck: Supple. Chest: Good air entry bilaterally with occasional rhonchi which do not clear with cough. Cardiac: S1, S2. Abdomen: Soft. Extremities: Without edema. LABORATORY DATA: Sodium 133, potassium 4.1, chloride 94, bicarbonate 32, BUN 11, creatinine 0.2. White blood count 9.13 hemoglobin 12.1, platelet count 184,000. IMPRESSION: A 38-year-old with remote history of meningitis as a child, intellectual disability, who is: 1. Status post cardiopulmonary arrest. 2. Acute on chronic hypoxemic respiratory failure. 3. Chronic hypercapnic respiratory failure. 4. Malnutrition. 5. Generalized deconditioning. RECOMMENDATIONS: 1. Continue to encourage p.o. intake. 2. Continue bronchial hygiene. 3. Wean oxygen as tolerated. 4. Anticipate rehab discharge soon. cc: MD Sid Macario Jr, MD
--- NOTE | 2018-07-07 11:22 | PROGRESS NOTE ---
DATE: 07/07/2018 OBJECTIVE: Vital signs: Temperature 96.5 degrees, heart rate 81, respirations 16, blood pressure 109/78, O2 saturation on 1 L nasal oxygen 100%. General: The patient is alert and sitting up. He ate a good breakfast and is feeling well. Chest: Clear to auscultation. LABORATORY: Hemoglobin 12.3, hematocrit 35.2, white blood count 8500 with 84% neutrophils. Sodium 134, potassium 4.1, BUN 8, creatinine 0.2, glucose 104, calcium 9.2. ASSESSMENT AND PLAN: Hopefully home soon with assistance. cc: MD Sid Pitt Jr, MD
--- NOTE | 2018-07-07 17:13 | PULMONOLOGY PROGRESS NOTE ---
DATE: 07/07/2018 SUBJECTIVE: Patient is smiling upon my arrival. He is currently taking whole tablets without chewing which has been an issue over the last several days. He has no increased work of breathing. OBJECTIVE: Vital Signs: The patient has been afebrile for the last 24 hours. Blood pressure 119/87, heart rate 102, respiratory rate 17, oxygen saturation 98% on 2 L per nasal cannula. HEENT: Pupils are equal and reactive. Oropharynx is clear. Neck: Supple. Chest: Reveals faint crackles in the lung bases. Cardiac: S1-S2. Abdomen: Soft. Extremities: Without edema. LABORATORIES: White blood count 8.52, hemoglobin 12.3, platelet count 154,000. Sodium 134, potassium 4.1, chloride 93, bicarbonate 31, BUN 8, creatinine 0.2. No new microbiology data. IMPRESSION: A 38-year-old with remote history of meningitis with an intellectual disability who has sustained 1. A cardiopulmonary arrest. 2. Acute on hypoxemic respiratory failure. 3. Chronic hypercapnic respiratory failure. 4. Malnutrition. 5. Generalized deconditioning. Patient continues to improve. He is now taking p.o. intake. He is tolerating his p.o. tablets. His chest exam is relatively clear. RECOMMENDATION: 1. Continue to encourage p.o. intake. 2. Continue bronchial hygiene. 3. Wean oxygen as tolerated. 4. Follow up chest x-ray tomorrow. 5. This is hospital day #49, anticipate discharge home or to the rehab facility soon. cc: MD Sid Macario Jr, MD
[2018-07-08] MEDS: SOLU-MEDROL IV SCH (00:25)
[2018-07-08] MEDS: NS IV SCH ×2 (00:25→05:50)
[2018-07-08] MEDS: DEPACON IV SCH ×2 (00:25→05:50)
[2018-07-08] MEDS: DUONEB (A & A) INH SCH ×6 (03:28→23:37)
[2018-07-08] MEDS: SYNTHROID IV SCH ×2 (05:51→06:09)
[2018-07-08] MEDS: PATIENT'S OWN MED PO SCH ×5 (05:51→21:22)
--- NOTE | 2018-07-08 07:05 | Diag Imaging Result Doc PS360 ---
EXAM: CHEST-PORTABLE HISTORY: abnormal exam TECHNIQUE: Portable chest single view COMPARISON: 07/04/2018 FINDINGS: No change in the right-sided PICC line. Mild increased interstitial markings in the mid lungs similar to the prior study. The lungs are well expanded. No cardiomegaly. No pleural effusions identified. IMPRESSION: Stable chest Electronically signed by Man Benavides 07/08/2018 7:02 AM
--- NOTE | 2018-07-08 08:40 | PROGRESS NOTE ---
DATE: 07/08/2018 SUBJECTIVE: The patient is doing better. He is looking around more. He is starting to move his arms some. He is starting to swallow at least small tablets without having to chew them up. He has not tried a large tablet like his Depakote yet. OBJECTIVE: Blood pressure is 117/75, respirations 16, pulse 93, temperature 97.5 degrees Fahrenheit. HEENT: Normocephalic. EOMs intact. PERRLA. Throat clear. Lungs: Sound clear to auscultation and percussion without rhonchi, rales, or wheezes. Heart: Regular rate and rhythm without murmurs, gallops, or friction rubs. Abdomen: Soft. Active bowel sounds. No organomegaly or tenderness. Neurological: Examination shows improvement with him being more alert. He is smiling. He is looking at people. He seems to recognize what we are saying. ASSESSMENT: 1. Status post cardiopulmonary arrest. 2. Encephalopathy. 3. Pneumonia, now resolving. 4. Chronic fibrotic lung disease. 5. Seizure disorder. 6. Nutritional problems. PLAN: Continue treatment. Trying to get him changed over to oral medicines as soon as we can. cc: Sid Guerrero Jr, MD
[2018-07-08] MEDS: PEPCID IV SCH ×2 (09:13→21:21)
[2018-07-08] MEDS: LOVENOX SUBQ SCH (09:13)
[2018-07-08] MEDS: PREDNISONE PO SCH ×2 (09:13→21:21)
[2018-07-08] MEDS: SODIUM CHLORIDE 0.9% INJ SCH ×2 (10:45→21:21)
[2018-07-08] MEDS ORDERED: DEPAKOTE ER PO SCH (13:00)
[2018-07-08] MEDS ORDERED: MISC. PHARMACY COMMUNICATION SCH (14:00)
[2018-07-09] MEDS: DUONEB (A & A) INH SCH ×6 (04:38→23:50)
[2018-07-09] MEDS: PATIENT'S OWN MED PO SCH ×6 (06:10→22:07)
[2018-07-09] MEDS: SYNTHROID PO SCH (06:10)
[2018-07-09] MEDS: PREDNISONE PO SCH ×2 (08:41→20:46)
[2018-07-09] MEDS: LOVENOX SUBQ SCH (08:41)
[2018-07-09] MEDS: PEPCID IV SCH ×2 (08:41→20:46)
[2018-07-09] MEDS: SODIUM CHLORIDE 0.9% INJ SCH ×2 (08:42→20:46)
--- NOTE | 2018-07-09 10:14 | PROGRESS NOTE ---
DATE: 07/09/2018 SUBJECTIVE: The patient is alert. He is swallowing his pills now. He is moving his arms some. He is still very weak but much improved. Mother would like to take him home rather than go to rehab. We are going to work on that. He will need a hospital bed. Hopefully we will get him out of the next couple of days. OBJECTIVE: Vital Signs: Temperature 97.4 degrees Fahrenheit, pulse 89, respirations 15, blood pressure 122/84, oxygen saturation on 1 L was 99%. HEENT: Normocephalic. EOMs intact. PERRLA. Throat clear. Lungs: Clear to auscultation and percussion without rhonchi, rales, or wheezes. Heart: Regular rate and rhythm without murmurs, gallops or friction rubs. Abdomen: Soft. Active bowel sounds. No organomegaly or tenderness. Neurological: The patient is more alert. He is using his hands somewhat now. Does have encephalopathy. ASSESSMENT: 1. Status post cardiopulmonary arrest. 2. Fibrotic lung disease. 3. Seizure disorder. 4. Acute and chronic encephalopathy. PLAN: Continue care. Work on discharge. The patient is improving. cc: Sid Guerrero Jr, MD
[2018-07-10] MEDS: DUONEB (A & A) INH SCH ×6 (03:25→23:31)
[2018-07-10] MEDS: SYNTHROID PO SCH ×2 (05:58→06:07)
[2018-07-10] MEDS: PATIENT'S OWN MED PO SCH ×6 (05:58→21:21)
[2018-07-10] MEDS: LOVENOX SUBQ SCH (08:41)
[2018-07-10] MEDS: PREDNISONE PO SCH ×2 (08:41→21:21)
[2018-07-10] MEDS: PEPCID IV SCH ×2 (08:42→21:21)
[2018-07-10] MEDS: SODIUM CHLORIDE 0.9% INJ SCH ×2 (08:53→21:21)
--- NOTE | 2018-07-10 09:05 | PROGRESS NOTE ---
DATE: 07/10/2018 SUBJECTIVE: The patient is alert. He is smiling. His blood pressure was up a little today. He has been hurting from his decubitus ulcer when he moves his legs. I think this is probability is what's causing his blood pressure to go up. His last check was 128/95. OBJECTIVE: Blood pressure 128/95, respirations 18, pulse 90, temp 97.9 degrees Fahrenheit.HEENT: Normocephalic. EOMS intact. PERRLA. Throat clear. Lungs: Clear to auscultation and percussion without rhonchi, rales, or wheezes. Heart: Regular rate and rhythm without murmurs, gallops, friction rubs. Abdomen: Soft. Active bowel sounds. No organomegaly or tenderness. Neurological: The patient is more alert, moving his arms better, not moving his legs a lot probably because of this decubitus which has been treated for some time. ASSESSMENT: 1. Status post cardiopulmonary arrest. 2. Seizure disorder. 3. Pneumonia resolved. 4. Nutritional problems. 5. Encephalopathy both acute and chronic. 6. Fibrotic lung disease. 7. Hypothyroidism. PLAN: We will continue care get ready for discharge tomorrow I had given a prescription for hospital bed will bladder train and remove [place] mother wants to take him home rather than go to rehab. cc: Sid Guerrero Jr, MD
[2018-07-11] MEDS: DUONEB (A & A) INH SCH ×4 (03:32→15:33)
[2018-07-11] MEDS: PATIENT'S OWN MED PO SCH ×4 (05:39→13:57)
[2018-07-11] MEDS: SYNTHROID PO SCH ×2 (05:40→06:13)
[2018-07-11] MEDS: PREDNISONE PO SCH (08:16)
[2018-07-11] MEDS: LOVENOX SUBQ SCH (08:16)
[2018-07-11] MEDS: PEPCID IV SCH (08:16)
[2018-07-11] MEDS: SODIUM CHLORIDE 0.9% INJ SCH (09:28)
[2018-07-11 11:18] VITALS: BP 120/82
[2018-07-11] MEDS ORDERED: TYLENOL PO ONE (13:54)
--- NOTE | 2018-07-12 07:36 | DISCHARGE SUMMARY ---
ADMISSION DATE: 05/19/2018 DISCHARGE DATE: 07/11/2018 CONSULTATIONS: 1. Dr. Cruz Pulmonology. 2. Dr. Mcdonough, Cardiology. 3. Dr. Davalos and Dr. Rader Neurology. 4. Dr. Mcknight. Surgery. FINAL DIAGNOSES: 1. Cardiopulmonary arrest. 2. Seizure disorder with status epilepticus. 3. Pneumonia bacterial. 4. Nutritional problems. 5. Sacral decubitus ulcer. 6. Chronic and acute encephalopathies. 7. Fibrotic lung disease. 8. Gastroesophageal reflux disease. 9. Anemia resolved. SECONDARY DIAGNOSIS: Hypothyroidism. HISTORY OF PRESENT ILLNESS: The patient is a 38-year-old white male who has a history fibrotic lung disease and chronic obstructive pulmonary disease. He is on oxygen and prednisone at home. About 4 years ago, he developed influenza and went into respiratory arrest. He was placed on a ventilator, and has had several episodes since that time of respiratory arrest. 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 During this hospitalization, he came in in,cardiopulmonary arrest, and was placed on a ventilator. He has since resolved somewhat from this. He went through a period of status epilepticus, and then after the seizures were controlled finally. He was very sleepy for some time. We slowly decreased his epileptic medicine back down to what he was on at home, and he has had no seizures. His pneumonia that he developed has ceased. He was on the ventilator for a good while, and has finally been off of the ventilator and is doing much better in that way. Pneumonia seems to have resolved. He has had nutritional problems which are getting better. He is now eating. He has been very weak. Initially, he could not lift his hands or his arms, now he is lifting his arms somewhat. He still cannot walk. He did develop a sacral decubitus ulcer that is being treated by the wound care nurse. PHYSICAL EXAMINATION: Vital Signs: Stable. HEENT: Normocephalic. EOMS intact. PERRLA. Throat clear. Lungs: Clear to auscultation and percussion without rhonchi, rales, or wheezes. Heart: Regular rate and rhythm without murmurs, gallops, or friction rubs. Abdomen: Soft. Active bowel sounds. No organomegaly or tenderness. Neurological: Exam shows improvement. He smiles and looks me in the face, and responds to his mother. He is much more alert. He is moving his arms somewhat. DISPOSITION: We discussed rehab for him. Mother has decided she wants to do this herself and wants him home. We will discharge him home on his regular home medicines. His prednisone will be tapered as he is taking 20 mg p.o. b.i.d. now, and will be tapered over the next several days back down to 5 mg daily. He will be back on his Depakote ER at 1000 mg p.o. t.i.d. He has Carafate liquid 1 p.o. q.6 hours and Protonix 40 mg daily. The levothyroxine 88 mcg daily, Tegretol 400 mg p.o. t.i.d., and his ProAir HFA 8.5 grams q.4 hours 1 to 2 puffs as needed for wheezing. When he is better able to get into the office, I want to see him back at that point. I appreciate all the help from the specialists. We will discharge him back home by ambulance. Mother has a hospital bed set up. cc: Sid Guerrero Jr, MD
== END 2018-07-11 16:05 | disposition home or self-care (01) | DRG 207 ==
LOC: SUPCPDRO → ED 04:22 → ICU 06:21 → SUATTDRO 06:21 → ICU 06:55 → 3S 06-14 18:38
PROVIDERS: ADMIT Emergency Medicine; ATTEND Emergency Medicine
CPT/HCPCS: 31500; 36569; 70450; 71010; 71045; 74000; 74018; 80048; 80053; 80156; 80164; 80165; 80177; 80202; 80299; 81001; 82150; 82491; 82550; 82553; 82805; 82948; 83690; 83735; 84100; 84134; 84436; 84443; 84484; 85025; 85027; 85610; 87040; 87070; 87088; 87205; 92526; 92950; 93005; 93010; 93306; 93308; 93880; 93882; 93971; 94003; 94150; 94640; 94660; 94760; 94761; 95816; 97110; 97162; 97530; 99285; 99291; A9270; J1650; J1940; J1953; J2060; J2405; J2543; J2920; J3010; J3370; J3475; J3480; J7030; J7040; J7050; J7506; J7512; S0028; XXXXX